=== PATIENT | female | born 1960 | race Asian ===

== ENCOUNTER 2020-06-20 08:21 | Outpatient (REF) | payer OTHER, SELFPAY ==
--- NOTE | 2020-06-20 08:26 | MM_ITS ---
EXAMINATION: MM SCREENING DIGITAL MAMMOGRAPHY, BILATERAL CLINICAL INFORMATION: Remote right mastectomy for breast cancer 1998. Due for yearly exam. COMPARISON: Mammography: 03/24/2019, 05/22/2017, 05/20/2016 TECHNIQUE: Digital mammography is performed in craniocaudal and mediolateral oblique views along with computer-aided detection (CAD). FINDINGS: There are scattered areas of fibroglandular density (ACR BI-RADS breast composition Category b). There are no significant masses, abnormal calcifications, or other abnormalities. Parenchymal pattern is similar to prior studies. There are no significant changes. MM/MM screening mammo unilat LT IMPRESSION: No mammographic evidence of malignancy. ASSESSMENT: BI-RADS 1: Negative RECOMMENDATION: Routine annual mammography screening. This patient's information was entered into a reminder system with a target due date for their next mammogram.
== END 2020-06-20 08:22 | disposition home or self-care (01) ==
LOC: HO.MAMMO 08:21
PROVIDERS: PCP Internal Medicine; Visit Provider Internal Medicine
DX: Z12.31 Encounter for screening mammogram for malignant neoplasm of breast (principal)
CPT/HCPCS: 77065; 77067

== ENCOUNTER → 2020-07-26 12:42 | Outpatient (BNV) | payer OTHER, SELFPAY | PROVIDERS: PCP Internal Medicine; Visit Provider Internal Medicine Medical Oncology | DX: M81.0 Age-related osteoporosis without current pathological fracture (principal); Z85.3 Personal history of malignant neoplasm of breast | CPT/HCPCS: 99213; 99214 ==

== ENCOUNTER 2020-10-11 12:20 | Outpatient (REF) | payer OTHER, SELFPAY ==
[2020-10-11 13:55] LABS: MANUAL DIFF FLAG NO
[2020-10-11 13:59] LABS: Basophils Absolute Auto 0.1 X10*3/uL (0.0-0.2); Basophils Percent Auto 0.9 % (0-2); Eosinophils Absolute Auto 0.1 X10*3/uL (0.0-0.4); Eosinophils Percent Auto 1.4 % (0-4); Hematocrit 41.5 % (37-47); Hemoglobin 13.2 g/dl (12.0-16.0); Imm Gran Abs Auto 0.02 X10*3/uL (0.00-0.03); Imm Gran Pct Auto 0.3 % (0.0-0.4); Lymphocytes Absolute Auto 2.9 X10*3/uL (1.2-4.9); Lymphocytes Percent Auto 43.8 % (20-40); Mean Corpuscular HGB Conc 31.8 g/dl (31.0-35.0); Mean Corpuscular Hemoglobin 28.8 pg (27.0-33.0); Mean Corpuscular Volume 90.4 fL (80-98); Mean Platelet Volume 10.7 fL (9.4-12.3); Monocytes Absolute Auto 0.3 X10*3/uL (0.1-1.2); Monocytes Percent Auto 5.1 % (2-11); Neutrophils Absolute Auto 3.2 X10*3/uL (2.0-8.3); Neutrophils Percent Auto 48.5 % (45-73); Platelet Count 219 X10*3/uL (160-400); Red Blood Count 4.59 X10*6/uL (4.20-5.50); Red Cell Distribution Width 12.8 % (11.0-16.0); White Blood Count 6.7 X10*3/uL (4.8-10.8)
[2020-10-11 14:10] LABS: Estimated Average Glucose 169 mg/dL; Hemoglobin A1c % 7.5 %
[2020-10-11 14:20] LABS: Alanine Aminotransferase 14 U/L (0-31); Albumin Level 4.6 g/dL (3.5-5.0); Alkaline Phosphatase 65 U/L (39-117); Anion Gap 14 (12-20); Aspartate Amino Transferase 16 U/L (5-31); Bilirubin Direct 0.3 mg/dL (0.0-0.5); Bilirubin Total 0.7 mg/dL (0.0-1.0); Blood Urea Nitrogen 11 mg/dL (9-16); Calcium 9.6 mg/dL (8.4-10.2); Carbon Dioxide 27 mmol/L (22-29); Chloride 104 mmol/L (96-108); Cholesterol 241 mg/dL; Estimated Glomerular Filt Rate > 60; Glucose Fasting 128 mg/dL (60-99); HDL Cholesterol 38 mg/dL; LDL Cholesterol Calculated 136 mg/dl; Potassium 4.1 mmol/L (3.3-5.1); Sodium 141 mmol/L (135-145); Total Protein 7.5 g/dL (6.5-8.0); Triglycerides 335 mg/dL
[2020-10-11 14:36] LABS: Creatinine Urine 227.27 mg/dL; Microalbum/Creatinine Ratio Ur 6.6 ug/mg cr
[2020-10-11 14:41] LABS: TSH reflex Free T4 3.54 uIU/mL (0.32-4.0)
== END 2020-10-11 12:21 | disposition home or self-care (01) ==
LOC: HO.HMGCLDS 12:20
PROVIDERS: PCP Internal Medicine; Visit Provider Internal Medicine
DX: E03.9 Hypothyroidism, unspecified (principal); E13.9 Other specified diabetes mellitus without complications; M81.0 Age-related osteoporosis without current pathological fracture; E78.5 Hyperlipidemia, unspecified; Z76.89 Persons encountering health services in other specified circumstances
CPT/HCPCS: 36415; 80048; 80061; 80076; 82043; 83036; 84443; 85025

== ENCOUNTER 2021-01-02 12:13 | Emergency (ER) | payer OTHER, SELFPAY ==
--- NOTE | ~2021-01-02 | XR_ITS ---
EXAMINATION: XR RIBS, RIGHT CLINICAL INFORMATION: Rib injury. Pain. COMPARISON: Chest radiographs 09/01/2017, 06/18/2014 TECHNIQUE: Frontal view chest and 3 views right ribs are obtained for a total of 4 views. FINDINGS: There is minimally displaced fracture involving distal end right 8th rib. There is no destructive process. The remainder of the right ribs appear intact. There is no pneumothorax, pleural reaction, airspace consolidation, or effusion. The heart is normal in size. The hilar and mediastinal contours and remainder of the bony structures are unremarkable. XR/XR ribs RT min 3V w CXR1V IMPRESSION: Fracture distal right 8th rib. Lungs clear. No pneumothorax, infiltrate, or effusion.
[2021-01-02 13:07] VITALS: BP 127/76; PULSE 18; RESP 77; TEMP 36.2; O2SAT 97; BMI 30.4
--- NOTE | 2021-01-02 13:30 | ED.GENADULT ---
HPI - General Adult General Chief complaint: General Medical <RISHI Arellano Last Filed: 01/11/21 12:01> Stated complaint: rib pain <RISHI Arellano Last Filed: 01/11/21 12:01> Time Seen by Provider: 01/02/21 13:30 <RISHI Arellano Last Filed: 01/11/21 12:01> History of Present Illness HPI narrative: Patient complains of right side rib pain after lifting heavy barrel 2 days ago, pain is worse with deep breath movement and when touched, no shortness of breath no other chest pain <RISHI Arellano Last Filed: 01/11/21 12:01> Related Data Home medications: Previous Rx's Medication Instructions Recorded atorvastatin 10 mg tablet 10 mg PO DAILY 30 Days #30 tab 11/02/20 cholecalciferol (vitamin D3) 50 2,000 unit PO DAILY 90 Days #90 cap 11/02/20 mcg (2,000 unit) capsule levothyroxine 50 mcg tablet 50 mcg PO DAILY #90 tab 11/02/20 metformin 1,000 mg tablet 1,000 mg PO BID 90 Days #180 tab 12/12/20 <RISHI Arellano Last Filed: 01/11/21 12:01> Allergies/adverse reactions: Allergies Allergy/AdvReac Type Severity Reaction Status Date / Time No Known Allergies Allergy Verified 01/02/21 13:12 [No Known Allergies*] <RISHI Arellano Last Filed: 01/11/21 12:01> Review of Systems Review of Systems: Positive for right-sided rib pain worse with movement Negatives are no fever chills no dizziness no weakness no fainting no feeling faint no headache no neck pain no shortness of breath no palpitations no abdominal pain no nausea no vomiting no rash <RISHI Arellano Last Filed: 01/11/21 12:01> Yes all other systems are reviewed and are negative <RISHI Arellano Last Filed: 01/11/21 12:01> [facility] Past Medical History Source: nursing notes reviewed <RISHI Arellano Last Filed: 01/11/21 12:01> Medical History: Medical History Dyslipidemia Hypothyroidism <RISHI Arellano Last Filed: 01/11/21 12:01> Surgical History: Surgical History History of colonoscopy History of modified radical mastectomy of right breast History of reconstruction of right breast History of surgery <RISHI Arellano - Last Filed: 01/11/21 12:01> Family History Family History: Family History Father Cancer Leukemia Mother Diabetes mellitus Ovarian cancer Maternal Grandmother Cancer Ovarian cancer Maternal Grandfather No problems noted. Paternal Grandmother No problems noted. Paternal Grandfather No problems noted. Paternal Aunt Breast cancer Sister No problems noted. Son No problems noted. <RISHI Arellano - Last Filed: 01/11/21 12:01> Social History Social History: Social History Alcohol intake: never Advance Directives: Yes Advance Directives Information Provided: Yes Advance Directives on File: No <RISHI Arellano - Last Filed: 01/11/21 12:01> Physical Exam Vital Signs: Vital Signs: Last Vital Signs Temp 97.1 F 01/02/21 13:07 Pulse 18 L 01/02/21 13:07 Resp 77 H 01/02/21 13:07 BP 127/76 01/02/21 13:07 Pulse Ox 97 01/02/21 13:07 Body Mass Index 30.4 General appearance no acute distress Head is normocephalic atraumatic Neck is supple nontender Chest is clear to auscultation bilaterally with full symmetric equal breath sounds There is some pain in the right rib area with deep breathing and there is tenderness to the area the skin is normal and there The abdomen is soft and nontender Extremities no edema no calf tenderness no swelling Skin no rash <RISHI Arellano - Last Filed: 01/11/21 12:01> Vital Signs: Last Vital Signs Temp 97.1 F 01/02/21 13:07 Pulse 18 L 01/02/21 13:07 Resp 77 H 01/02/21 13:07 BP 127/76 01/02/21 13:07 Pulse Ox 97 01/02/21 13:07 Body Mass Index 30.4 <Juwan Huggins MD - Last Filed: 02/12/21 18:20> Course Course Course Narrative: X-ray showed a right rib fracture in the area of tenderness, patient is in no distress breathing easily ambulates easily and is discharged <RISHI Arellano - Last Filed: 01/11/21 12:01> I have reviewed the chart <Juwan Huggins MD - Last Filed: 02/12/21 18:20> Discharge Plan Discharge Clinical Impression: Closed rib fracture <RISHI Arellano - Last Filed: 01/11/21 12:01> Patient Disposition: Home, Self-Care <RISHI Arellano - Last Filed: 01/11/21 12:01> Additional Instructions: X-ray showed you broke a rib in the area that is painful Follow with her doctor within 1 week for re-evaluation Return any time for difficulty breathing, coughing, any worse condition or any concerns In addition to her Naprosyn you can take extra-strength Tylenol 2 pills 3 times a day for pain relief as needed <RISHI Arellano - Last Filed: 01/11/21 12:01> Prescriptions: No Action levothyroxine 50 mcg tablet 50 mcg PO DAILY Qty: 90 RF: 0 atorvastatin 10 mg tablet 10 mg PO DAILY 30 Days Qty: 30 RF: 0 cholecalciferol (vitamin D3) [Vitamin D3] 50 mcg (2,000 unit) capsule 2,000 unit PO DAILY 90 Days Qty: 90 RF: 0 metformin 1,000 mg tablet 1,000 mg PO BID 90 Days Qty: 180 RF: 0 <RISHI Arellano - Last Filed: 01/11/21 12:01> Interventions: ED Discharge Assessment Last Done: 01/02/21 14:20 <RISHI Arellano - Last Filed: 01/11/21 12:01> Discharge Date/Time: 01/02/21 14:23 <RISHI Arellano - Last Filed: 01/11/21 12:01>
== END 2021-01-02 14:23 | disposition home or self-care (01) ==
PROVIDERS: Emergency Provider Emergency Medicine; PCP Internal Medicine
DX: S22.31XA Fracture of one rib, right side, initial encounter for closed fracture (principal); R07.81 Pleurodynia; X50.0XXA Overexertion from strenuous movement or load, initial encounter; Y93.9 Activity, unspecified; Y92.9 Unspecified place or not applicable; Y99.9 Unspecified external cause status; Z79.899 Other long term (current) drug therapy
CPT/HCPCS: 71101; 99283

== ENCOUNTER 2021-03-20 08:45 | Outpatient (REF) | payer OTHER, SELFPAY ==
[2021-03-20 12:29] LABS: Alanine Aminotransferase 22 U/L (0-31); Albumin Level 4.6 g/dL (3.5-5.0); Alkaline Phosphatase 84 U/L (39-117); Anion Gap 13 (12-20); Aspartate Amino Transferase 24 U/L (5-31); Bilirubin Total 0.8 mg/dL (0.0-1.0); Blood Urea Nitrogen 9 mg/dL (9-16); Calcium 9.9 mg/dL (8.4-10.2); Carbon Dioxide 27 mmol/L (22-29); Chloride 107 mmol/L (96-108); Estimated Glomerular Filt Rate > 60; Glucose Random 122 mg/dL (60-115); Potassium 4.5 mmol/L (3.3-5.1); Sodium 142 mmol/L (135-145); Total Protein 7.5 g/dL (6.5-8.0)
[2021-03-20 12:30] LABS: Estimated Average Glucose 123 mg/dL; Hemoglobin A1c % 5.9 %
[2021-03-20 12:52] LABS: TSH reflex Free T4 4.08 uIU/mL (0.32-4.0)
[2021-03-20 14:30] LABS: Free T4 (Free Thyroxine) 0.98 ng/dL (0.71-1.85)
== END 2021-03-20 08:46 | disposition home or self-care (01) ==
LOC: HO.HMGCLDS 08:45
PROVIDERS: PCP Internal Medicine; Visit Provider Internal Medicine
DX: E66.9 Obesity, unspecified (principal); E13.9 Other specified diabetes mellitus without complications; E03.9 Hypothyroidism, unspecified; E78.5 Hyperlipidemia, unspecified
CPT/HCPCS: 36415; 80053; 83036; 84439; 84443

== ENCOUNTER 2021-07-31 12:37 | Outpatient (REF) | payer OTHER, SELFPAY ==
--- NOTE | ~2021-07-31 | MM_ITS ---
EXAMINATION: MM SCREENING DIGITAL BREAST TOMOSYNTHESIS, LEFT CLINICAL INFORMATION: Screening. Asymptomatic. Status post right mastectomy. COMPARISON: Mammography: June 20, 2020 and studies dating back to May 08, 2014 TECHNIQUE: Digital breast tomosynthesis is performed in both the craniocaudal and mediolateral oblique views along with computer-aided detection (CAD). Synthesized 2D images are generated from the tomosynthesis. FINDINGS: The breasts are heterogeneously dense, which may obscure small masses (ACR BI-RADS breast composition Category c). There are no significant masses, abnormal calcifications, or other abnormalities. MM/MM tomosynthesis screening LT IMPRESSION: There are no significant changes from prior study. ASSESSMENT: BI-RADS 1: Negative RECOMMENDATION: Routine annual mammography screening. This patient's information was entered into a reminder system with a target due date for their next mammogram.
--- NOTE | ~2021-07-31 | MM_ITS ---
EXAMINATION: BONE DENSITOMETRY CLINICAL INDICATION: Age-related osteoporosis without current pathological fracture. COMPARISON: Previous BD dated 03/24/2019 and baseline BD dated 11/01/2013. TECHNIQUE: Using a [employer] DXA System (software version: 13.1) manufactured by [employer], dual-energy x-ray absorptiometry was performed of the lumbar spine and left hip. The images are of good technical quality. Summary results are attached. FINDINGS: AP SPINE L1-L4: Current: BMD 1.016 g/cm2, Z-score -0.6, T-score -1.4, osteopenia, 5.2% increase from previous, 11.4% increase from baseline (<5% change is not significant). Prior: BMD 0.966 g/cm2. Baseline: BMD 0.912 g/cm2. LEFT FEMUR, NECK: Current: BMD 0.859 g/cm2, Z-score -0.3, T-score -1.3, osteopenia. Prior: BMD 0.796 g/cm2. Baseline: BMD 0.790 g/cm2. LEFT FEMUR, TOTAL: Current: BMD 0.938 g/cm2, Z-score 0.1, T-score -0.6, normal, 4.9% increase from previous, 10.6% increase from baseline (<5% change is not significant). Prior: BMD 0.894 g/cm2. Baseline: BMD 0.848 g/cm2. IDENTIFIED RISK FACTORS: Early menopause, secondary osteoporosis, low calcium intake, hysterectomy, bilateral oophorectomy. HISTORY OF FRACTURE: None listed. MEDICATIONS: Calcium supplements or multivitamin, vitamin D. MM/XR DEXA axial skeleton IMPRESSION: 1. DIAGNOSIS: Osteopenia based on the lowest T-score value of -1.4 in the lumbar spine applying World Health Organization criteria. 2. 10-YEAR FRACTURE RISK PREDICTION, FRAX: Major osteoporotic fracture (clinical spine, forearm, hip or shoulder) 3.8%. Hip fracture 0.3%. 3. Treatment Recommendations: NOF guidelines recommend consideration for treatment in postmenopausal women and men age 50 and older presenting with the following: -A hip or vertebral (clinical or morphometric) fracture. -T-score less than or equal to -2.5 at the femoral neck or spine after appropriate evaluation to exclude secondary causes. -Low bone mass at the hip or spine and a 10-year fracture probability by FRAX of greater than or equal to 3% for hip fracture or greater than or equal to 20% for major osteoporotic fracture based on the [place] adapted WHO algorithm. 4. Other Recommendations: All treatment decisions require clinical judgment and consideration of individual patient factors, including patient preferences, comorbidities, previous drug use, risk factors not captured in the FRAX model (e.g. frailty, falls, vitamin D deficiency, increased bone turnover, interval significant decline in bone density) and possible under or overestimation of fracture risk by FRAX. Additional medical evaluation for secondary cause of low bone mineral density may be appropriate. FUTURE SCAN RECOMMENDATION: People with diagnosed cases of osteoporosis or at high risk for fracture should have regular bone mineral density tests. For patients eligible for Medicare, routine testing is allowed once every 2 years. The testing frequency can be increased to one year for patients who have rapidly progressing disease, those who are receiving or discontinuing medical therapy to restore bone mass, or have additional risk factors.
== END 2021-07-31 12:38 | disposition home or self-care (01) ==
LOC: HO.MAMMO 12:37
PROVIDERS: PCP Internal Medicine; Visit Provider Internal Medicine
DX: Z12.31 Encounter for screening mammogram for malignant neoplasm of breast (principal); Z13.820 Encounter for screening for osteoporosis; M81.0 Age-related osteoporosis without current pathological fracture; M85.80 Other specified disorders of bone density and structure, unspecified site; Z78.0 Asymptomatic menopausal state; Z79.899 Other long term (current) drug therapy
CPT/HCPCS: 77063; 77067; 77080

== ENCOUNTER → 2021-09-17 13:09 | Outpatient (BNVA) | payer OTHER, SELFPAY | PROVIDERS: PCP Internal Medicine; Visit Provider Advanced Practice Midwife ==

== ENCOUNTER 2021-10-15 10:11 | Outpatient (REF) | payer OTHER, SELFPAY ==
[2021-10-15 12:17] LABS: Alanine Aminotransferase 17 U/L (0-31); Albumin Level 4.5 g/dL (3.5-5.0); Alkaline Phosphatase 55 U/L (39-117); Anion Gap 12 (12-20); Aspartate Amino Transferase 18 U/L (5-31); Bilirubin Total 0.8 mg/dL (0.0-1.0); Blood Urea Nitrogen 8 mg/dL (9-16); Calcium 9.7 mg/dL (8.4-10.2); Carbon Dioxide 26 mmol/L (22-29); Chloride 107 mmol/L (96-108); Estimated Glomerular Filt Rate > 60; Glucose Random 112 mg/dL (60-115); Potassium 4.1 mmol/L (3.3-5.1); Sodium 141 mmol/L (135-145); Total Protein 7.5 g/dL (6.5-8.0)
[2021-10-15 12:27] LABS: Estimated Average Glucose 123 mg/dL; Hemoglobin A1c % 5.9 %
[2021-10-15 12:38] LABS: TSH reflex Free T4 5.44 uIU/mL (0.32-4.0)
[2021-10-15 13:17] LABS: Free T4 (Free Thyroxine) 0.97 ng/dL (0.71-1.85)
== END 2021-10-15 10:12 | disposition home or self-care (01) ==
LOC: HO.HMGCLDS 10:11
PROVIDERS: Visit Provider Internal Medicine
DX: E03.9 Hypothyroidism, unspecified (principal); E13.9 Other specified diabetes mellitus without complications; E66.9 Obesity, unspecified; E78.5 Hyperlipidemia, unspecified
CPT/HCPCS: 36415; 80053; 83036; 84439; 84443

== ENCOUNTER 2022-02-21 09:44 | Outpatient (REF) | payer OTHER, SELFPAY ==
[2022-02-21 11:50] LABS: Estimated Average Glucose 128 mg/dL; Hemoglobin A1c % 6.1 %
[2022-02-21 12:03] LABS: Alanine Aminotransferase 19 U/L (0-31); Albumin Level 4.6 g/dL (3.5-5.0); Alkaline Phosphatase 64 U/L (39-117); Anion Gap 14 (12-20); Aspartate Amino Transferase 18 U/L (5-31); Bilirubin Total 0.7 mg/dL (0.0-1.0); Blood Urea Nitrogen 11 mg/dL (9-16); Calcium 9.6 mg/dL (8.4-10.2); Carbon Dioxide 27 mmol/L (22-29); Chloride 107 mmol/L (96-108); Cholesterol 166 mg/dL; Estimated Glomerular Filt Rate > 60; Glucose Fasting 119 mg/dL (60-99); HDL Cholesterol 38 mg/dL; LDL Cholesterol Calculated 93 mg/dl; Potassium 4.5 mmol/L (3.3-5.1); Sodium 143 mmol/L (135-145); Total Protein 7.5 g/dL (6.5-8.0); Triglycerides 178 mg/dL
[2022-02-21 12:25] LABS: TSH reflex Free T4 2.59 uIU/mL (0.32-4.0)
== END 2022-02-21 09:45 | disposition home or self-care (01) ==
LOC: HO.HMGCLDS 09:44
PROVIDERS: Visit Provider Internal Medicine
DX: E03.8 Other specified hypothyroidism (principal); E13.9 Other specified diabetes mellitus without complications; E66.9 Obesity, unspecified; E78.9 Disorder of lipoprotein metabolism, unspecified
CPT/HCPCS: 36415; 80053; 80061; 83036; 84443

== ENCOUNTER 2022-06-23 09:47 | Outpatient (REF) | payer OTHER, SELFPAY ==
[2022-06-23 11:48] LABS: Estimated Average Glucose 140 mg/dL; Hemoglobin A1c % 6.5 %
[2022-06-23 11:58] LABS: Alanine Aminotransferase 46 U/L (0-31); Albumin Level 4.5 g/dL (3.5-5.0); Alkaline Phosphatase 95 U/L (39-117); Anion Gap 15 (12-20); Aspartate Amino Transferase 41 U/L (5-31); Bilirubin Total 0.5 mg/dL (0.0-1.0); Blood Urea Nitrogen 11 mg/dL (9-16); Carbon Dioxide 24 mmol/L (22-29); Chloride 106 mmol/L (96-108); Estimated Glomerular Filt Rate > 60; Glucose Random 127 mg/dL (60-115); Potassium 4.1 mmol/L (3.3-5.1); Sodium 141 mmol/L (135-145); Total Protein 7.3 g/dL (6.5-8.0)
[2022-06-23 12:44] LABS: Creatinine Urine 113.31 mg/dL; Microalbum/Creatinine Ratio Ur 11.4 ug/mg cr
== END 2022-06-23 09:48 | disposition home or self-care (01) ==
LOC: HO.HMGCLDS 09:47
PROVIDERS: PCP Internal Medicine; Visit Provider Internal Medicine
DX: E03.8 Other specified hypothyroidism (principal); E13.9 Other specified diabetes mellitus without complications; E66.9 Obesity, unspecified; E78.9 Disorder of lipoprotein metabolism, unspecified
CPT/HCPCS: 36415; 80053; 82043; 83036

== ENCOUNTER 2022-07-14 09:32 | Outpatient (REF) | payer OTHER, SELFPAY ==
[2022-07-14 12:10] LABS: Alanine Aminotransferase 17 U/L (0-31); Albumin Level 4.6 g/dL (3.5-5.0); Alkaline Phosphatase 71 U/L (39-117); Aspartate Amino Transferase 18 U/L (5-31); Bilirubin Direct 0.2 mg/dL (0.0-0.5); Bilirubin Total 0.8 mg/dL (0.0-1.0); Total Protein 7.4 g/dL (6.5-8.0)
== END 2022-07-14 09:33 | disposition home or self-care (01) ==
LOC: HO.HMGCLDS 09:32
PROVIDERS: PCP Internal Medicine; Visit Provider Internal Medicine
DX: R79.89 Other specified abnormal findings of blood chemistry (principal)
CPT/HCPCS: 36415; 80076

== ENCOUNTER 2022-08-08 07:30 | Outpatient (REF) | payer OTHER, SELFPAY ==
--- NOTE | ~2022-08-08 | MM_ITS ---
EXAMINATION: MM SCREENING DIGITAL BREAST TOMOSYNTHESIS, LEFT CLINICAL INFORMATION: Screening. Asymptomatic. Remote right mastectomy, 1998. COMPARISON: Mammography: 07/31/2021, 06/20/2020, 03/24/2019 TECHNIQUE: Digital breast tomosynthesis is performed in both the craniocaudal and mediolateral oblique views along with computer-aided detection (CAD). Synthesized 2D images are generated from the tomosynthesis. FINDINGS: There are scattered areas of fibroglandular density (ACR BI-RADS breast composition Category b). There are no significant masses, abnormal calcifications, or other abnormalities. Parenchymal pattern is similar to prior studies. There is no developing density or architectural abnormality. The axilla and skin contours are unremarkable. No significant changes. MM/MM tomosynthesis screening LT IMPRESSION: No mammographic evidence of malignancy. ASSESSMENT: BI-RADS 1: Negative RECOMMENDATION: Routine annual mammography screening. This patient's information was entered into a reminder system with a target due date for their next mammogram.
== END 2022-08-08 07:31 | disposition home or self-care (01) ==
LOC: HO.MAMMO 07:30
PROVIDERS: PCP Internal Medicine; Visit Provider Internal Medicine
DX: Z12.31 Encounter for screening mammogram for malignant neoplasm of breast (principal)
CPT/HCPCS: 77063; 77067

== ENCOUNTER 2022-11-17 10:58 | Outpatient (REF) | payer OTHER, SELFPAY ==
[2022-11-17 13:49] LABS: MANUAL DIFF FLAG NO
[2022-11-17 13:58] LABS: Basophils Absolute Auto 0.1 X10*3/uL (0.0-0.2); Basophils Percent Auto 0.8 % (0-2); Eosinophils Absolute Auto 0.1 X10*3/uL (0.0-0.4); Eosinophils Percent Auto 1.4 % (0-4); Hematocrit 41.3 % (37.0-47.0); Hemoglobin 13.3 g/dl (12.0-16.0); Imm Gran Abs Auto 0.01 X10*3/uL (0.00-0.03); Imm Gran Pct Auto 0.2 % (0.0-0.4); Lymphocytes Absolute Auto 2.7 X10*3/uL (1.2-4.9); Lymphocytes Percent Auto 40.7 % (20-40); Mean Corpuscular HGB Conc 32.2 g/dl (31.0-35.0); Mean Corpuscular Hemoglobin 28.5 pg (27.0-33.0); Mean Corpuscular Volume 88.6 fL (80.0-98.0); Mean Platelet Volume 10.1 fL (9.4-12.3); Monocytes Absolute Auto 0.3 X10*3/uL (0.1-1.2); Neutrophils Absolute Auto 3.4 x10*3/uL (2.0-8.3); Neutrophils Percent Auto 51.9 % (45-73); Platelet Count 314 X10*3/uL (160-400); Red Blood Count 4.66 X10*6/uL (4.20-5.50); White Blood Count 6.6 X10*3/uL (4.8-10.8)
[2022-11-17 14:16] LABS: Alanine Aminotransferase 21 U/L (0-31); Albumin Level 4.6 g/dL (3.5-5.0); Alkaline Phosphatase 63 U/L (39-117); Anion Gap 16 (12-20); Aspartate Amino Transferase 20 U/L (5-31); Blood Urea Nitrogen 13 mg/dL (9-16); Calcium 10.1 mg/dL (8.4-10.2); Carbon Dioxide 25 mmol/L (22-29); Chloride 105 mmol/L (96-108); Cholesterol 180 mg/dL; Estimated Glomerular Filt Rate > 60; Glucose Fasting 125 mg/dL (60-99); HDL Cholesterol 39 mg/dL; LDL Cholesterol Calculated 102 mg/dl; Potassium 4.2 mmol/L (3.3-5.1); Sodium 142 mmol/L (135-145); Total Protein 7.3 g/dL (6.5-8.0); Triglycerides 197 mg/dL
[2022-11-17 14:18] LABS: Estimated Average Glucose 148 mg/dL; Hemoglobin A1c % 6.8 %
[2022-11-17 14:32] LABS: TSH reflex Free T4 3.06 uIU/mL (0.32-4.0)
== END 2022-11-17 10:59 | disposition home or self-care (01) ==
LOC: HO.HMGCLDS 10:58
PROVIDERS: PCP Internal Medicine; Visit Provider Internal Medicine
DX: E03.8 Other specified hypothyroidism (principal); E13.9 Other specified diabetes mellitus without complications; E78.9 Disorder of lipoprotein metabolism, unspecified
CPT/HCPCS: 36415; 80053; 80061; 83036; 84443; 85025

== ENCOUNTER 2022-11-27 08:35 | Outpatient (REF) | payer OTHER, SELFPAY ==
[2022-12-04 04:44] LABS: HPV mRNA E6/E7 rflx Not Detected (Not Detected)
== END 2022-11-27 08:36 | disposition home or self-care (01) ==
LOC: HO.LNP 08:35
PROVIDERS: PCP Internal Medicine; Visit Provider Advanced Practice Midwife
DX: Z01.419 Encounter for gynecological examination (general) (routine) without abnormal findings (principal); Z11.51 Encounter for screening for human papillomavirus (HPV)
CPT/HCPCS: 87624; 88142

== ENCOUNTER 2023-02-18 09:32 | Outpatient (AMB) | payer OTHER, SELFPAY ==
--- NOTE | 2023-02-18 09:35 | A.OFFPC_ITS ---
Vital Signs 02/18/23 09:38 Height 5 ft 1 in Weight 169 lb 2 oz BMI 32.0 BP 126/80 Blood Pressure Location Lt brachial Position Sitting Pulse 84 Pulse Source Pulse Oximeter Pulse Oximetry (%) 96 Oxygen Delivery Method Room Air Intake Visit Reasons: PE Allergies No Known Allergies [No Known Allergies*] Allergy (Verified 02/18/23 09:38) Medication List - Last Reconciled 02/18/23 by Whitney Gavin MD atorvastatin 10 mg PO DAILY 90 days cholecalciferol (vitamin D3) (Vitamin D3) 2,000 units PO DAILY 90 days levothyroxine 75 mcg PO DAILY 90 days metformin 1,000 mg PO DAILY 90 days Tobacco use date assessed: 02/18/23 Dental Screening Dental Screen Date: 02/18/23 Did you have a dental visit in the last 12 months?: No Did you have a dental problem in the last 6 months where you did not have access to dental care?: No Was dental information given to patient?: No HPI PE HPI Details Patient is a 62-year-old female came in today for her annual physical exam Patient is complaining of paresthesia right hand for the past 1 month, she said that she wakes up in the morning with numbness but as the day goes by it feels little bit better There is no weakness in the hand I have ordered EMG nerve conduction study, meanwhile I have also provided a wrist splint for the patient that she is to start wearing at night Diabetes mellitus: she is on metformin 1 g daily.? Tolerating medication no side effects hemoglobin A1c has been stable she is due for another set of lab before next visit Hypothyroidism:? Patient is currently taking levothyroxine 75 mcg, TSH within normal limit Lipid Disorder: Continue atorvastatin 10 mg daily and diet-controlled.? Repeat labs for LFT monitoring before next visit BMI is elevated need to lose weight.? Mammogram due in July Pap smear through [facility] Colonoscopy was at age 58 Follow-up 3 months PFS Medical History Dyslipidemia Hypothyroidism Surgical History History of colonoscopy History of modified radical mastectomy of right breast History of reconstruction of right breast History of surgery Family History Father Cancer Leukemia Mother Diabetes mellitus Ovarian cancer Maternal Grandmother Cancer Ovarian cancer Maternal Grandfather No problems noted. Paternal Grandmother No problems noted. Paternal Grandfather No problems noted. Paternal Aunt Breast cancer Sister No problems noted. Son No problems noted. Social History Household Members: Children Household Members Other:: Divorce. Lives w/son in 2 family. Housing: House Are you a primary medicare compliance auditor to a significant other at home: No Do you presently have visiting nurse or other home services: No Alcohol intake: never Patient Tobacco Use Status: Never used Tobacco e-Cigarette/Vaping Use: Never Used Second Hand Smoke Exposure: No service: No Current occupational status: employed Sexual orientation: Straight/Heterosexual Gender identity: Female Cognitive needs: No Hearing needs: No Vision needs: Yes Questionnaire Thrive Questionnaire Date Thrive assessed: 10/22/22 AUDIT C Alcohol Use Questionnaire (AUDIT-C) 1. How often do you have a drink containing alcohol?: Never 3. How often do you have six or more drinks on one occasion?: Never Total Score: 0 Score Reviewed/Action Taken: Yes JUSTUS-7 AMB Questionnaire JUSTUS-7 Date JUSTUS - 7 assessed: 10/22/22 Source: Developed by Drs. Sandeep Cruz, Ninfa Edwards, Ruddy Roberts and colleagues, with an educational charissa from [email or web address]. Review of Systems Const Denies chills, Denies fever(s) and Denies headache(s) Eyes Denies blurry vision ENT Denies headache(s), Denies nasal discharge, Denies nasal obstruction, Denies odynophagia and Denies sinus pain Card Denies chest pain at rest and Denies chest pain with activity Resp Denies cough and Denies hemoptysis GI Denies diarrhea, Denies odynophagia, Denies vomiting and Denies hematemesis Reports as per HPI Musc Denies abnormal gait Skin/Breast Reports as per HPI Neuro Denies Neuro-related abnormal movements, Denies Abnormal speech present, Denies abnormal gait, Denies headache(s) and Denies Sensory deficit (Neuro) Psych Denies mood swings and Denies paranoia Endo Reports as per HPI Vicente/Lymph Reports as per HPI Aller/Immun Reports as per HPI Physical exam (Primary Care) Vital Signs: Last Vital Signs Pulse 84 02/18/23 09:38 BP 126/80 02/18/23 09:38 Pulse Ox 96 02/18/23 09:38 Oxygen Delivery Method Room Air 02/18/23 09:38 BMI result Body Mass Index 32.0 Tobacco/Smoking Status: Tobacco use Status Tobacco use date assessed 02/18/23 02/18/23 09:40 Patient Tobacco Use Status Never used Tobacco 02/18/23 09:37 e-Cigarette/Vaping Use Never Used 02/18/23 09:37 Thrive Assessment: Date of Thrive Assessment Date Thrive assessed 10/22/22 02/18/23 09:37 Const General: cooperative, comfortable and no acute distress Orientation/consciousness: patient oriented x3 HENMT Head: Yes normocephalic and Yes atraumatic Eyes General: appearance normal, both eyes and all related structures Pupils: Equal, round and reactive pupils present EOM: EOMs intact bilaterally Neck Neck: Yes supple and No lymphadenopathy Thyroid: Thyroid normal Lymphatic: no lymphadenopathy noted Resp Effort & Inspection: normal respiratory effort and able to speak in complete sentences Auscultation: clear to auscultation bilaterally Cardio Heart sounds: S1 normal heart sound present and S2 normal heart sound present GI Palpation (GI): Soft to palpation and nontender Auscultation: normal bowel sounds General: Yes no CVA tenderness Back/Spine/Pelvis Back: no CVA tenderness Skin General skin exam: elasticity normal and turgor normal Neuro General: patient oriented x3 and gait normal Cranial nerves: Yes Equal, round and reactive pupils present Speech: No Abnormal speech present Sensory Exam: No Sensory deficit (Neuro) Coordination: tandem gait normal and Romberg test negative Extrem General: Yes normal exam except as noted and No edema Assessment and Plan Assessment & Plan (1) Encounter for general adult medical examination with abnormal findings: Code(s): Z00.01 - Encounter for general adult medical examination with abnormal findings (2) Diabetes 1.5, managed as type 2: Code(s): E13.9 - Other specified diabetes mellitus without complications (3) Other specified hypothyroidism: Code(s): E03.8 - Other specified hypothyroidism (4) Lipid disorder: Code(s): E78.9 - Disorder of lipoprotein metabolism, unspecified (5) LFT elevation: Code(s): R79.89 - Other specified abnormal findings of blood chemistry (6) Paresthesias in right hand: Code(s): R20.2 - Paresthesia of skin Plan Patient is a 62-year-old female came in today for her annual physical exam Patient is complaining of paresthesia right hand for the past 1 month, she said that she wakes up in the morning with numbness but as the day goes by it feels little bit better There is no weakness in the hand I have ordered EMG nerve conduction study, meanwhile I have also provided a wrist splint for the patient that she is to start wearing at night Diabetes mellitus: she is on metformin 1 g daily.? Tolerating medication no side effects hemoglobin A1c has been stable she is due for another set of lab before next visit Hypothyroidism:? Patient is currently taking levothyroxine 75 mcg, TSH within normal limit Lipid Disorder: Continue atorvastatin 10 mg daily and diet-controlled.? Repeat labs for LFT monitoring before next visit BMI is elevated need to lose weight.? Mammogram due in July Pap smear through [facility] Colonoscopy was at age 58 Follow-up 3 months Orders: Orders Comprehensive Met. Panel Today E03.8 - Other specified hypothyroidism, E13.9 - Other specified diabetes mellitus without complications, E78.9 - Disorder of lipoprotein metabolism, unspecified, R20.2 - Paresthesia of skin, R79.89 - Other specified abnormal findings of blood chemistry, Z00.01 - Encounter for general adult medical examination with abnormal findings Hemoglobin A1c Today E03.8 - Other specified hypothyroidism, E13.9 - Other specified diabetes mellitus without complications, E78.9 - Disorder of lipoprotein metabolism, unspecified, R20.2 - Paresthesia of skin, R79.89 - Other specified abnormal findings of blood chemistry, Z00.01 - Encounter for general adult medical examination with abnormal findings LDL Cholesterol Direct Today E03.8 - Other specified hypothyroidism, E13.9 - Other specified diabetes mellitus without complications, E78.9 - Disorder of lipoprotein metabolism, unspecified, R20.2 - Paresthesia of skin, R79.89 - Other specified abnormal findings of blood chemistry, Z00.01 - Encounter for general adult medical examination with abnormal findings Microalbumin, Random (w Creat) Today E03.8 - Other specified hypothyroidism, E13.9 - Other specified diabetes mellitus without complications, E78.9 - Disorder of lipoprotein metabolism, unspecified, R20.2 - Paresthesia of skin, R79.89 - Other specified abnormal findings of blood chemistry, Z00.01 - Encounter for general adult medical examination with abnormal findings Complete Blood Count Auto Diff Today E03.8 - Other specified hypothyroidism, E13.9 - Other specified diabetes mellitus without complications, E78.9 - Disorder of lipoprotein metabolism, unspecified, R20.2 - Paresthesia of skin, R79.89 - Other specified abnormal findings of blood chemistry, Z00.01 - Encounter for general adult medical examination with abnormal findings Vitamin B12 Today E03.8 - Other specified hypothyroidism, R20.2 - Paresthesia of skin TSH reflex Free T4 Today E03.8 - Other specified hypothyroidism, R20.2 - Paresthesia of skin Vitamin D 25-OH (D2 and D3) Today E03.8 - Other specified hypothyroidism, R20.2 - Paresthesia of skin NE electromyogram (EMG) Today R20.2 - Paresthesia of skin NE nerve conduction velocity Today R20.2 - Paresthesia of skin Coding Level of Care Code Est Pt Prev Care 40-64y(39077) Diagnoses Encounter for general adult medical examination with abnormal findings Z00.01 Diabetes 1.5, managed as type 2 E13.9 Other specified hypothyroidism E03.8 Lipid disorder E78.9 LFT elevation R79.89 Paresthesias in right hand R20.2
[2023-02-18 09:38] VITALS: BP 126/80; PULSE 84; O2SAT 96; BMI 32.0
== END 2023-02-18 10:00 | disposition home or self-care (01) ==
PROVIDERS: Visit Provider Internal Medicine
DX: Z00.01 Encounter for general adult medical examination with abnormal findings (principal); E13.9 Other specified diabetes mellitus without complications; E03.8 Other specified hypothyroidism; E78.9 Disorder of lipoprotein metabolism, unspecified; R79.89 Other specified abnormal findings of blood chemistry; R20.2 Paresthesia of skin
CPT/HCPCS: 99396

== ENCOUNTER 2023-04-02 07:42 | Outpatient (REF) | payer OTHER, SELFPAY ==
--- NOTE | 2023-04-02 07:45 | EMG_ITS ---
Right median and ulnar motor and sensory studies were performed. Right radial sensory study was performed and paraspinal muscles were tested with a needle. IMPRESSION: 1. Moderate right median neuropathy across the carpal tunnel. 2. Moderate right ulnar neuropathy across the cubital tunnel. MD MALLY Westbrook/NATY / [id number]
== END 2023-04-02 07:43 | disposition home or self-care (01) ==
LOC: HO.NEURO 07:42
PROVIDERS: PCP Internal Medicine; Visit Provider Internal Medicine
DX: R20.2 Paresthesia of skin (principal)
CPT/HCPCS: 95886; 95909

== ENCOUNTER 2023-04-29 11:16 | Emergency (ER) | payer OTHER, SELFPAY ==
--- NOTE | ~2023-04-29 | XR_ITS ---
EXAMINATION: XR SHOULDER, LEFT CLINICAL INFORMATION: Shoulder pain times many months COMPARISON: None available. TECHNIQUE: Three views of the left shoulder. FINDINGS: The bones and soft tissues are normal. No fracture. Glenohumeral and acromioclavicular alignment is anatomic with normal joint space. No abnormal soft tissue calcifications. XR/XR shoulder LT min 2V IMPRESSION: Normal left shoulder.
[2023-04-29 11:30] VITALS: BP 134/79; PULSE 74; RESP 19; TEMP 36.6; O2SAT 98; BMI 33.4
--- NOTE | 2023-04-29 11:30 | ED_ITS ---
HPI - General Adult General Chief complaint: Extremity Injury, Upper Stated complaint: l shoulder pain Time Seen by Provider: 04/29/23 12:34 Source: patient Mode of arrival: ambulatory Limitations: no limitations History of Present Illness HPI narrative: 62 y/o Female, right-hand dominant who presents to the ER for evaluation of a traumatic left-sided shoulder pain for the last 2 or 3 months. She cannot recall any specific event for with the shoulder started to hurt. She states that the pain is located in the anterior and lateral shoulder, is worse with abduction past 90 degrees and worse at night. The pain radiates into the muscle of the upper arm. No numbness, tingling or weakness in the arm. No neck pain, back pain or chest pain. She takes Aleve intermittently with some improvement. MD complaint: left shoulder pain Onset (ago): month(s) (3) Location: left and upper extremity Radiation: distal Severity: moderate Severity scale (1-10): 7 Quality: aching Pain Consistency: intermittent Relieving factors: rest Exacerbating factors: movement Associated symptoms: denies other symptoms Treatments prior to arrival: none Related Data Previous Rx's Medication Instructions Recorded atorvastatin 10 mg tablet 10 mg PO DAILY 90 days #90 tabs 06/24/22 cholecalciferol (vitamin D3) 50 2,000 unit PO DAILY 90 days #90 06/24/22 mcg (2,000 unit) capsule (Vitamin caps D3) levothyroxine 75 mcg tablet 75 mcg PO DAILY 90 days #90 tabs 06/24/22 metformin 1,000 mg tablet 1,000 mg PO DAILY 90 days #90 tabs 01/23/23 Allergies Allergy/AdvReac Type Severity Reaction Status Date / Time No Known Allergies Allergy Verified 04/29/23 11:30 [No Known Allergies*] Review of Systems Review of Systems: Yes all other systems are reviewed and are negative [facility] Past Medical History Medical History Dyslipidemia Hypothyroidism Surgical History History of colonoscopy History of modified radical mastectomy of right breast History of reconstruction of right breast History of surgery Family History Family History Father Cancer Leukemia Mother Diabetes mellitus Ovarian cancer Maternal Grandmother Cancer Ovarian cancer Maternal Grandfather No problems noted. Paternal Grandmother No problems noted. Paternal Grandfather No problems noted. Paternal Aunt Breast cancer Sister No problems noted. Son No problems noted. Social History Social History Household Members: Children Household Members Other:: Divorce. Lives w/son in 2 family. Housing: House Are you a primary manager intensive care unit to a significant other at home: No Do you presently have visiting nurse or other home services: No Alcohol intake: never Patient Tobacco Use Status: Never used Tobacco e-Cigarette/Vaping Use: Never Used Second Hand Smoke Exposure: No Advance Directives: No Advance Directives Information Provided: No service: No Current occupational status: employed Sexual orientation: Straight/Heterosexual Gender identity: Female Cognitive needs: No Hearing needs: No Vision needs: Yes Physical Exam ED Vital Signs: Vital Signs - 24 hr 04/29/23 11:30 Temperature 98 F Pulse Rate 74 Respiratory Rate 19 Blood Pressure 134/79 Pulse Oximetry 98 Oxygen Delivery Method Room Air BMI result Body Mass Index 33.4 Appearance: Alert. Oriented X3. No acute distress. HEENT: normal inspection CVS: Normal heart rate and rhythm. Pulses normal. Respiratory: No respiratory distress. Skin: Skin warm and dry. Normal skin color. Normal skin turgor. No rashes. Extremities: left shoulder normal inspection, mild tenderness of the anteriolateral shoulder. pain with lateral abduction past 90 degrees. negative empty can test. normal strength. no scapular tenderness Neuro: Oriented X 3. No motor deficit. No sensory deficit. Course Course Course Narrative: This is a rapid medical exam: Additional HPI, ROS, PE not included below will be deferred to primary provider. Patient is a 62-year-old [id number] female presenting to the emergency department with complaint of left shoulder pain for the past several months, denies any initial fall or other trauma. States pain is worse at night, radiates to upper arm but not past elbow. Plan: x-ray Medical Decision Making Medical Decision Making MDM Narrative: 62 yo female presenting with atraumatic left shoulder pain for several months. x-ray is normal. able to passive abduct the arm past 90 degrees but with pain. negative empty can test. no radiation to chest or back. she has an appointment with orthopedics tomorrow for c/o carpal tunnel symptoms in the right hand. recommend continued follow up with ortho for further evaluation and treatment of her shoulder pain. recommend rest, ice, tylenol, motrin. no indication for sling immobilization, patient counseled. stable for d/c home with outpatient follow up Differential Diagnosis Differential Diagnoses: The differential diagnosis associated with the presentation includes OA, rotator cuff injury, inflammatory arthritis, bursitis, tendonitis, doubt cardiac etiology Independent Interpretation I performed an independent interpretation of an: Plain X-Ray Interpretation: no acute fracture or dislocation, agree w/ radiology read Radiology Impression Discussion of test interpretation with radiology: I have reviewed the radiologist's reading. Radiologist Impression: EXAMINATION: XR SHOULDER, LEFT CLINICAL INFORMATION: Shoulder pain times many months COMPARISON: None available. TECHNIQUE: Three views of the left shoulder. FINDINGS: The bones and soft tissues are normal. No fracture. Glenohumeral and acromioclavicular alignment is anatomic with normal joint space. No abnormal soft tissue calcifications. XR/XR shoulder LT min 2V IMPRESSION: Normal left shoulder. External Record Review External record reviewed: Outpatient record, Prior outpatient labs and Prior outpatient radiology Tests considered The following testing was considered but not selected: considered EKG however cardiac etiology is very low on differential and clinical presentation is not c/w chest pain Prescription Management I considered prescription management with: Pain Medication Critical Care Time Critical Care Time Critical Care Time: No Discharge Plan Discharge Clinical Impression: Shoulder pain, left Qualifiers: Chronicity: chronic Qualified Code(s): M25.512 - Pain in left shoulder Patient Disposition: Home, Self-Care Instructions: Shoulder Pain (ED) Additional Instructions: Your x-ray today was normal. Recommend following up with orthopedics for further evaluation treatment. Recommend taking alternating doses of Motrin and Tylenol for the pain. If you develop new or worsening symptoms call 911 or come back to the ER for further evaluation. Prescriptions: No Action metformin 1,000 mg tablet 1,000 mg PO DAILY 90 Days Qty: 90 1RF levothyroxine 75 mcg tablet 75 mcg PO DAILY 90 Days Qty: 90 1RF atorvastatin 10 mg tablet 10 mg PO DAILY 90 Days Qty: 90 1RF cholecalciferol (vitamin D3) [Vitamin D3] 50 mcg (2,000 unit) capsule 2,000 unit PO DAILY 90 Days Qty: 90 0RF Referrals: [facility] [place] [facility] [Provider Group] (EXAMINATION: XR SHOULDER, LEFT CLINICAL INFORMATION: Shoulder pain times many months COMPARISON: None available. TECHNIQUE: Three views of the left shoulder. FINDINGS: The bones and soft tissues are normal. No fracture. Glenohumeral and acromioclavicular alignment is anatomic with normal joint space. No abnormal soft tissue calcifications. XR/XR shoulder LT min 2V IMPRESSION: Normal left shoulder.)
[2023-04-29 15:00] VITALS: BP 120/75; PULSE 63; RESP 16; TEMP 36.6; O2SAT 99
== END 2023-04-29 15:06 | disposition home or self-care (01) ==
PROVIDERS: Emergency Provider Emergency Medicine; PCP Internal Medicine
DX: M25.512 Pain in left shoulder (principal)
CPT/HCPCS: 73030; 99283

== ENCOUNTER 2023-04-30 10:16 | Outpatient (AMB) | payer OTHER, SELFPAY ==
--- NOTE | 2023-04-30 10:58 | MHC.OFFVIS ---
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 States symptoms started to worsen in the last 3 months. Patient explains she has hx of rt breast cancer (20 yrs ago) and is not sure this is due to her lumpectomy, also mention about 10 yrs ago had a bad laceration across her index, middle and ring finger where no surgery was needs but has to get sutures. States she also has numbness in left hand but not as bad as her right. She also has soreness in left shoulder for a few months possible due to repetitive moment. Allergies No Known Allergies [No Known Allergies*] Allergy (Verified 04/29/23 11:30) Medication List - Last Reconciled 04/30/23 by Alyx Angel MD atorvastatin 10 mg PO DAILY 90 days cholecalciferol (vitamin D3) (Vitamin D3) 2,000 units PO DAILY 90 days levothyroxine 75 mcg PO DAILY 90 days metformin 1,000 mg PO DAILY 90 days HPI HPI Comments History of Present Illness Details Patient already had an EMG. See results below. Numbness gradually developing at least 3 months, mainly right 1sty-4th digits. 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 Left not as bad, just starting. Not dropping things. Numbness bothers her 6/10 level. Report left shoulder is sore , pointing to upper arm, says not the bone . She went to ER yesterday. Xray said was normal. Denies neck pain. DM is controlled. Sometimes with numbness. Treatment done so far: NSAIDs - takes Alleve for left shoulder/arm Tries to wear splints at night. therapy - none yet PFSH Medical History Dyslipidemia Hypothyroidism Surgical History History of colonoscopy History of modified radical mastectomy of right breast History of reconstruction of right breast History of surgery Family History Father Cancer Leukemia Mother Diabetes mellitus Ovarian cancer Maternal Grandmother Cancer Ovarian cancer Maternal Grandfather No problems noted. Paternal Grandmother No problems noted. Paternal Grandfather No problems noted. Paternal Aunt Breast cancer Sister No problems noted. Son No problems noted. Social History (Updated 04/30/23 @ 11:05 by SENAIT Huff) Household Members: Children Household Members Other:: Divorce. Lives w/son in 2 family. 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 MSK: Inspection reveals appropriate head and neck positioning. No pain with palpation over the neck musculature. Cervical ROM was full. Spurling's sign negative. Bilateral shoulder ROM WNL. No ligamentous laxity or crepitance. No increased effusion. Mild tenderness along left deltoid. No signs of muscle tear. No asymmetry compared to the right. Hawkin's test is negative. No joint effusion noted. No deformity noted. No intrinsic hand weakness noted. No atrophy noted. Anurag test negative. Carpal compression test positive on right. Tinel sign positive at left elbow. Strength is 5/5 in all muscle groups tested. No increased tone noted. Neurological: Neurologic examination of the upper and lower extremities was nonfocal with intact sensation, muscle stretch reflexes and without focal motor deficits . Naidu?s negative bilaterally. Gait is non-antalgic without loss of balance. Results Reviewed Results Reviewed: I independently reviewed the results of the following: EMG reviewed-possible right Carpal Tunnel Syndrome, no conduction block across the elbow. Left shoulder xray normal. Ordering Physician: Whitney Gavin MD Date of Service: 04/02/23 Procedure(s): NE electromyogram (EMG); NE nerve conduction velocity Accession Number(s): [id number]; [id number] cc: Whitney Gavin MD~ Right median and ulnar motor and sensory studies were performed. Right radial sensory study was performed and paraspinal muscles were tested with a needle. IMPRESSION: 1. Moderate right median neuropathy across the carpal tunnel. 2. Moderate right ulnar neuropathy across the cubital tunnel. EXAMINATION: XR SHOULDER, LEFT CLINICAL INFORMATION: Shoulder pain times many months COMPARISON: None available. TECHNIQUE: Three views of the left shoulder. FINDINGS: The bones and soft tissues are normal. No fracture. Glenohumeral and acromioclavicular alignment is anatomic with normal joint space. No abnormal soft tissue calcifications. XR/XR shoulder LT min 2V IMPRESSION: Normal left shoulder. HGBA1c been in the 6s I reviewed records from the following: PCP Assessment & Plan Assessment & Plan (1) Carpal tunnel syndrome: Code(s): G56.00 - Carpal tunnel syndrome, unspecified upper limb Qualifiers: Laterality: bilateral Qualified Code(s): G56.03 - Carpal tunnel syndrome, bilateral upper limbs Plan: Recent EMG showed right Carpal Tunnel Syndrome, at least moderate level. We discussed treatment for Carpal Tunnel Syndrome including conservative versus surgical. She is already wearing a wrist splint at night. We decided to have her meet Dr. German for consideration of surgery. We will schedule her for left upper extremity EMG since she has similar symptoms on that side. We will provide left wrist splint as well. (2) Strain of deltoid muscle: Code(s): S46.819A - Strain of other muscles, fascia and tendons at shoulder and upper arm level, unspecified arm, initial encounter Plan: Possible is muscle strain, without signs of tear. No signs of RTC are joint pathology. Continue NSAIDs and icing and relative rest. Plan Assessment and plan discussed with patient, and patient was agreeable. All questions were answered thoroughly. Alyx Angel MD, JILLIAN Board Certified, [place] [employer] and [employer] (ABPMR) Board Certified, [place] [employer] (ABEM) Orders: Orders NE nerve conduction velocity Today G56.00 - Carpal tunnel syndrome, unspecified upper limb NE electromyogram (EMG) Today G56.00 - Carpal tunnel syndrome, unspecified upper limb Referrals Orthopedics Referral G56.00 - Carpal tunnel syndrome, unspecified upper limb Coding Level of Care Code New Pt Level 4 (05219) Diagnoses Bilateral carpal tunnel syndrome G56.03 Laterality: bilateral Strain of deltoid muscle S46.819A
[2023-04-30 11:03] VITALS: BMI 33.4
== END 2023-04-30 11:28 | disposition home or self-care (01) ==
PROVIDERS: PCP Internal Medicine; Visit Provider Physical Medicine & Rehabilitation
DX: G56.03 Carpal tunnel syndrome, bilateral upper limbs (principal); S46.812A Strain of other muscles, fascia and tendons at shoulder and upper arm level, left arm, initial encounter
CPT/HCPCS: 99204

== ENCOUNTER → 2023-04-30 10:16 | Outpatient (BNVA) | payer OTHER, SELFPAY | PROVIDERS: PCP Internal Medicine; Visit Provider Physical Medicine & Rehabilitation ==

== ENCOUNTER 2023-05-07 14:46 | Outpatient (REF) | payer OTHER, SELFPAY ==
--- NOTE | 2023-05-07 14:48 | EMG_ITS ---
History: Recent EMG showed right Carpal Tunnel Syndrome, at least moderate level. She is already wearing a wrist splint at night. She is scheduled to see Dr. German for consideration of surgery. Today's study is for left upper extremity EMG since she has similar symptoms on that side. Reason for referral: Evaluate for left Carpal Tunnel Syndrome Procedure done: Left upper extremity EMG/NCS Precautions and/or limitations: None The limb temperature was monitored continuously and remained between 32-36 degrees C during the performance of the NCS. Nerve Conduction Studies Anti Sensory Summary Table ?Stim Site NR Onset (ms) Norm Onset (ms) Peak (ms) Norm Peak (ms) O-P Amp (?V) Norm O-P Amp Site1 Site2 Delta-0 (ms) Dist (cm) Fili (m/s) Norm Fili (m/s) Left Median Anti Sensory (2nd Digit) Wrist ? 3.1 3.8 <3.6 7.5 >10 Wrist 2nd Digit 3.1 14.0 45 Left Ulnar Anti Sensory (5th Digit) Wrist ? 2.8 3.4 <3.7 57.6 >15.0 Wrist 5th Digit 2.8 14.0 50 Motor Summary Table ?Stim Site NR Onset (ms) Norm Onset (ms) O-P Amp (mV) Norm O-P Amp iAmp (mV) Amp (1st) (%) Site1 Site2 Delta-0 (ms) Dist (cm) Fili (m/s) Norm Fili (m/s) Left Median Motor (Abd Poll Brev) Wrist ? 3.7 <3.9 10.6 >4.5 12.9 100.0 Elbow Wrist 3.6 20.0 56 >45 Elbow ? 7.3 10.2 11.7 96.2 Left Ulnar Motor (Abd Dig Minimi) Wrist ? 2.7 <3.0 6.8 >5 8.4 100.0 B Elbow Wrist 2.8 16.0 57 >45 B Elbow ? 5.5 6.3 8.1 92.6 A Elbow B Elbow 1.2 10.0 83 >45 A Elbow ? 6.7 5.6 7.2 82.4 Comparison Summary Table ?Stim Site NR Peak (ms) Norm Peak (ms) P-T Amp (?V) Site1 Site2 Delta-P (ms) Norm Delta (ms) Left Median/Radial Dig I Comparison (Digit 1 - 10cm) Median ? 3.4 <2.9 58.6 Median Radial 0.8 Radial ? 2.6 <2.8 17.4 EMG ?Side Muscle Nerve Root Ins Act Fibs Psw Amp Dur Poly Recrt Int Pat Comment Left 1stDorInt Ulnar C8-T1 Nml Nml Nml Nml Nml 0 Nml Complete Left FlexCarRad Median C6-7 Nml Nml Nml Nml Nml 0 Nml Complete Left Biceps Musculocut C5-6 Nml Nml Nml Nml Nml 0 Nml Complete Left Triceps Radial C6-7-8 Nml Nml Nml Nml Nml 0 Nml Complete Left Deltoid Axillary C5-6 Nml Nml Nml Nml Nml 0 Nml Complete FINDINGS: Left median sensory nerve showed prolonged peak latency and small amplitude. Significant interlatency difference between left median and radial sensory nerves. All other nerves tested were within normal. Concentric needle EMG was performed in selected muscles of the left upper extremity. Study did not reveal signs of electric abnormalities as shown in the table below. IMPRESSION: 1. This is an abnormal study. 2. There is electrodiagnostic evidence for left mild median neuropathy at the wrist, consistent with carpal tunnel syndrome. 3. There is no electrodiagnostic evidence for ulnar neuropathy, brachial plexopathy, or cervical radiculopathy. Thank you for your kind referral. Alyx Angel MD, JILLIAN Board Certified, [place] [employer] and [employer] (ABPMR) Board Certified, [place] [employer] Electro[employer]ostic [employer] (ABEM) CODIN [id number] MTDD
== END 2023-05-07 14:47 | disposition home or self-care (01) ==
LOC: HO.NEURO 14:46
PROVIDERS: PCP Internal Medicine; Visit Provider Physical Medicine & Rehabilitation
DX: G56.02 Carpal tunnel syndrome, left upper limb (principal)
CPT/HCPCS: 95886; 95909

== ENCOUNTER → 2023-05-07 14:48 | Outpatient (BNV) | payer OTHER, SELFPAY | PROVIDERS: PCP Internal Medicine; Visit Provider Physical Medicine & Rehabilitation | DX: G56.12 Other lesions of median nerve, left upper limb (principal); G56.02 Carpal tunnel syndrome, left upper limb | CPT/HCPCS: 95886; 95909 ==

== ENCOUNTER 2023-06-06 09:57 | Outpatient (REF) | payer OTHER, SELFPAY ==
[2023-06-06 11:12] LABS: MANUAL DIFF FLAG NO
[2023-06-06 11:17] LABS: Basophils Absolute Auto 0.1 X10*3/uL (0.0-0.2); Eosinophils Absolute Auto 0.1 X10*3/uL (0.0-0.4); Eosinophils Percent Auto 1.2 % (0-4); Hematocrit 40.2 % (37.0-47.0); Hemoglobin 12.7 g/dl (12.0-16.0); Imm Gran Abs Auto 0.02 X10*3/uL (0.00-0.03); Imm Gran Pct Auto 0.3 % (0.0-0.4); Lymphocytes Absolute Auto 2.6 X10*3/uL (1.2-4.9); Lymphocytes Percent Auto 45.2 % (20-40); Mean Corpuscular HGB Conc 31.6 g/dl (31.0-35.0); Mean Corpuscular Volume 91.8 fL (80.0-98.0); Mean Platelet Volume 10.8 fL (9.4-12.3); Monocytes Absolute Auto 0.3 X10*3/uL (0.1-1.2); Monocytes Percent Auto 4.5 % (2-11); Neutrophils Absolute Auto 2.8 x10*3/uL (2.0-8.3); Neutrophils Percent Auto 47.8 % (45-73); Platelet Count 256 X10*3/uL (160-400); Red Blood Count 4.38 X10*6/uL (4.20-5.50); Red Cell Distribution Width 13.1 % (11.0-16.0); White Blood Count 5.8 X10*3/uL (4.8-10.8)
[2023-06-06 11:40] LABS: Estimated Average Glucose 123 mg/dL; Hemoglobin A1c % 5.9 % (<6.0)
[2023-06-06 11:44] LABS: Alanine Aminotransferase 15 U/L (0-31); Albumin Level 4.6 g/dL (3.5-5.0); Alkaline Phosphatase 58 U/L (39-117); Anion Gap 17 (12-20); Aspartate Amino Transferase 18 U/L (5-31); Bilirubin Total 1.1 mg/dL (0.0-1.0); Blood Urea Nitrogen 12 mg/dL (9-16); Calcium 9.9 mg/dL (8.4-10.2); Carbon Dioxide 21 mmol/L (22-29); Chloride 107 mmol/L (96-108); Estimated Glomerular Filt Rate > 60; Glucose Random 107 mg/dL (60-115); Potassium 3.8 mmol/L (3.3-5.1); Sodium 141 mmol/L (135-145); Total Protein 7.9 g/dL (6.5-8.0)
[2023-06-06 11:47] LABS: Creatinine Urine 156.26 mg/dL; Microalbum/Creatinine Ratio Ur 5.1 ug/mg cr (<30)
[2023-06-06 11:58] LABS: Vitamin B12 1143 pg/mL (200-900)
[2023-06-06 12:00] LABS: TSH reflex Free T4 0.39 uIU/mL (0.32-4.0)
[2023-06-07 14:58] LABS: LDL Cholesterol Direct 75 mg/dL (<100)
[2023-06-10 13:45] LABS: Vitamin D 25-OH, D2 <4 ng/mL; Vitamin D 25-OH, D3 40 ng/mL; Vitamin D 25-OH, Total 40 ng/mL (30-100)
== END 2023-06-06 09:58 | disposition home or self-care (01) ==
LOC: HO.HMGCLDS 09:57
PROVIDERS: PCP Internal Medicine; Visit Provider Internal Medicine
DX: Z00.01 Encounter for general adult medical examination with abnormal findings (principal); E13.9 Other specified diabetes mellitus without complications; E03.8 Other specified hypothyroidism; R20.2 Paresthesia of skin; E78.9 Disorder of lipoprotein metabolism, unspecified; R79.89 Other specified abnormal findings of blood chemistry
CPT/HCPCS: 36415; 80053; 82043; 82306; 82570; 82607; 83036; 83721; 84443; 85025

== ENCOUNTER 2023-06-09 13:38 | Outpatient (AMB) | payer OTHER, SELFPAY ==
[2023-06-09 13:40] VITALS: BP 120/82; PULSE 82; O2SAT 96; BMI 32.3
--- NOTE | 2023-06-09 13:40 | MHC.PC.OV ---
Vital Signs 06/09/23 13:40 Height 5 ft Weight 165 lb 4 oz BMI 32.3 BP 120/82 Blood Pressure Location Lt brachial Position Sitting Pulse 82 Pulse Source Pulse Oximeter Pulse Oximetry (%) 96 Oxygen Delivery Method Room Air Intake Visit Reasons: Follow Up~ Allergies No Known Allergies [No Known Allergies*] Allergy (Verified 06/09/23 13:40) Medication List - Last Reconciled 06/09/23 by Whitney Gavin MD atorvastatin 10 mg PO DAILY 90 days cholecalciferol (vitamin D3) (Vitamin D3) 2,000 units PO DAILY 90 days levothyroxine 75 mcg PO DAILY 90 days metformin 1,000 mg PO DAILY 90 days Tobacco use date assessed: 06/09/23 Dental Screening Dental Screen Date: 06/09/23 Did you have a dental visit in the last 12 months?: Yes Did you have a dental problem in the last 6 months where you did not have access to dental care?: No Was dental information given to patient?: Patient has dentist HPI Follow Up~ HPI Details Patient is a 62-year-old female came in today for her regular follow-up appointment Patient offer no new complaints today she is doing well Labs done recently reviewed with the patient hemoglobin A1c is 5.9 She is taking be 12 supplement, her level is very high I have told her to stop taking that for a while. Nerve conduction study showed moderate carpal tunnel patient has already seen a specialist for treatment Diabetes mellitus: she is on metformin 1 g daily.? Next set of lab order placed Hypothyroidism:? Patient is currently taking levothyroxine 75 mcg, TSH within normal limit Lipid Disorder: Continue atorvastatin 10 mg daily and diet-controlled.? Repeat labs for LFT monitoring before next visit BMI is elevated need to lose weight.? Mammogram due in July Pap smear through [facility] Colonoscopy was at age 58 Follow-up 3 months Social history, family history, surgical history was reviewed today FORMERLY [facility], [facility]1983 Medical History Dyslipidemia Hypothyroidism Surgical History History of colonoscopy History of modified radical mastectomy of right breast History of reconstruction of right breast History of surgery Family History Father Cancer Leukemia Mother Diabetes mellitus Ovarian cancer Maternal Grandmother Cancer Ovarian cancer Maternal Grandfather No problems noted. Paternal Grandmother No problems noted. Paternal Grandfather No problems noted. Paternal Aunt Breast cancer Sister No problems noted. Son No problems noted. Social History (Updated 04/30/23 @ 11:05 by SENAIT Huff) Household Members: Children Household Members Other:: Divorce. Lives w/son in 2 family. 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 How often do you have a drink containing alcohol?: Never 3. How often do you have six or more drinks on one occasion?: Never Total Score: 0 Score Reviewed/Action Taken: Yes JUSTUS-7 AMB Questionnaire JUSTUS-7 Date JUSTUS - 7 assessed: 10/22/22 Source: Developed by Drs. Sandeep Cruz, Ninfa Edwards, Ruddy Roberts and colleagues, with an educational charissa from [employer]. Review of Systems Const Denies chills and Denies fever(s) ENT Denies epistaxis and Denies nasal discharge Card Denies chest pain Resp Denies chest congestion, Denies cough and Denies hemoptysis GI Denies diarrhea and Denies nausea Skin/Breast Denies rash Neuro Reports no additional complaints Psych Reports no additional complaints Endo Reports no additional complaints Physical exam (Primary Care) Vital Signs: Last Vital Signs Pulse 82 06/09/23 13:40 BP 120/82 06/09/23 13:40 Pulse Ox 96 06/09/23 13:40 Oxygen Delivery Method Room Air 06/09/23 13:40 BMI result Body Mass Index 32.3 Tobacco/Smoking Status: Tobacco use Status Tobacco use date assessed 06/09/23 06/09/23 13:41 Patient Tobacco Use Status Never used Tobacco 06/09/23 13:41 e-Cigarette/Vaping Use Never Used 06/09/23 13:41 Thrive Assessment: Date of Thrive Assessment Date Thrive assessed 10/22/22 06/09/23 13:41 Const General: cooperative, comfortable and no acute distress Orientation/consciousness: patient oriented x3 HENMT Head: Yes normocephalic Eyes General: appearance normal, both eyes and all related structures Neck Neck: Yes supple Resp Effort & Inspection: normal respiratory effort, no cough and no stridor Cardio Rhythm: regular rhythm Heart sounds: S1 normal heart sound present and S2 normal heart sound present Skin General skin exam: turgor normal Neuro General: patient oriented x3, tone normal and moves all extremities Extrem Right lower extremity: no edema Left lower extremity: no edema Results Reviewed Results Reviewed: Laboratory Tests 06/06/23 10:08 Hemoglobin A1c % 5.9 Total Bilirubin 1.1 H AST 18 ALT 15 LDL Cholesterol Direct 75 Vitamin B12 1143 H TSH 0.39 Assessment and Plan Assessment & Plan (1) Diabetes 1.5, managed as type 2: Code(s): E13.9 - Other specified diabetes mellitus without complications (2) Lipid disorder: Code(s): E78.9 - Disorder of lipoprotein metabolism, unspecified (3) LFT elevation: Code(s): R79.89 - Other specified abnormal findings of blood chemistry (4) Other specified hypothyroidism: Code(s): E03.8 - Other specified hypothyroidism (5) Obesity (BMI 30.0-34.9): Code(s): E66.9 - Obesity, unspecified Plan Patient is a 62-year-old female came in today for her regular follow-up appointment Patient offer no new complaints today she is doing well Labs done recently reviewed with the patient hemoglobin A1c is 5.9 She is taking be 12 supplement, her level is very high I have told her to stop taking that for a while. Nerve conduction study showed moderate carpal tunnel patient has already seen a specialist for treatment Diabetes mellitus: she is on metformin 1 g daily.? Next set of lab order placed Hypothyroidism:? Patient is currently taking levothyroxine 75 mcg, TSH within normal limit Lipid Disorder: Continue atorvastatin 10 mg daily and diet-controlled.? Repeat labs for LFT monitoring before next visit BMI is elevated need to lose weight.? Mammogram due in July Pap smear through [facility] Colonoscopy was at age 58 Follow-up 3 months Social history, family history, surgical history was reviewed today Orders: Orders Microalbumin, Random (w Creat) Today E13.9 - Other specified diabetes mellitus without complications Hemoglobin A1c Today E03.8 - Other specified hypothyroidism, E13.9 - Other specified diabetes mellitus without complications, E66.9 - Obesity, unspecified, E78.9 - Disorder of lipoprotein metabolism, unspecified, R79.89 - Other specified abnormal findings of blood chemistry Comprehensive Met. Panel Today E03.8 - Other specified hypothyroidism, E13.9 - Other specified diabetes mellitus without complications, E66.9 - Obesity, unspecified, E78.9 - Disorder of lipoprotein metabolism, unspecified, R79.89 - Other specified abnormal findings of blood chemistry Vitamin B12 Today E03.8 - Other specified hypothyroidism, E13.9 - Other specified diabetes mellitus without complications, E66.9 - Obesity, unspecified, E78.9 - Disorder of lipoprotein metabolism, unspecified, R79.89 - Other specified abnormal findings of blood chemistry Coding Level of Care Code Est Pt Level 4 (52699) Diagnoses Diabetes 1.5, managed as type 2 E13.9 Lipid disorder E78.9 LFT elevation R79.89 Other specified hypothyroidism E03.8 Obesity (BMI 30.0-34.9) E66.9
== END 2023-06-09 15:11 | disposition home or self-care (01) ==
PROVIDERS: PCP Internal Medicine; Visit Provider Internal Medicine
DX: E13.9 Other specified diabetes mellitus without complications (principal); E78.9 Disorder of lipoprotein metabolism, unspecified; E66.9 Obesity, unspecified; Z68.32 Body mass index [BMI] 32.0-32.9, adult; R79.89 Other specified abnormal findings of blood chemistry; E03.8 Other specified hypothyroidism
CPT/HCPCS: 99214

== ENCOUNTER 2023-06-30 08:45 | Outpatient (AMB) | payer OTHER, SELFPAY ==
[2023-06-30 08:56] VITALS: BMI 32.2
--- NOTE | 2023-06-30 08:56 | MHC.OFFVIS ---
Intake Vital Signs 06/30/23 08:56 Height 5 ft Weight 165 lb BMI 32.2 Intake Visit Reasons: OV- Discuss sx CTR Intake Note: Jose Cruz 62 yr old female presents today to discuss treatment options vs surgical intervention for her right CTS. Last seen with Dr. Addison who referred patient to discuss options with Dr. German. Patient also has left hand CTS however her right is currently worse. Allergies No Known Allergies [No Known Allergies*] Allergy (Verified 06/30/23 08:59) HPI OV- Discuss sx CTR HPI Details Jose Cruz is a 62 year old right hand dominant woman who presents to discuss numbness and tingling in her right hand. 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 She complains of numbness and tingling in all of the fingers of the right hand including the small finger. She says she has some sensation but it is not normal. She also reports that she had an accident some years ago where she had a transverse laceration across the D IP areas of the index middle and ring fingers, and it sounds like she had some loss of sensation after that injury. She does report he has some sensation but it is not normal. She also complains of some pain in the deltoid area of her left shoulder. She is a Diabetic and is well-controlled. [facility] Medical History Dyslipidemia Hypothyroidism Surgical History History of colonoscopy History of modified radical mastectomy of right breast History of reconstruction of right breast History of surgery Family History Father Cancer Leukemia Mother Diabetes mellitus Ovarian cancer Maternal Grandmother Cancer Ovarian cancer Maternal Grandfather No problems noted. Paternal Grandmother No problems noted. Paternal Grandfather No problems noted. Paternal Aunt Breast cancer Sister No problems noted. Son No problems noted. Social History Household Members: Children Household Members Other:: Divorce. Lives w/son in 2 family. 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 Sexual orientation: Straight/Heterosexual Gender identity: Female Cognitive needs: No Hearing needs: No Vision needs: Yes Review of Systems Const All systems reviewed & are unremarkable except as noted in HPI and below Physical Exam Vital Signs: BMI result Body Mass Index 32.2 Const General: cooperative, healthy appearing and no acute distress Orientation/consciousness: patient oriented x3 HEENT Head: Yes normocephalic and Yes atraumatic Eyes EOM: EOMs intact bilaterally Resp Effort & Inspection: normal respiratory effort and able to speak in complete sentences Cardio Jugular venous distension: no JVD Skin General skin exam: turgor normal Rashes: no rashes Neuro General: patient oriented x3 Extrem Other: Evaluation of Bilateral Upper Extremity: The patient is alert, oriented, and in no acute distress Neuro: Median, Ulnar, Radial nerves motor and sensory were intact except for some decreased subjective sensation to the tips of all of the fingers of the right hand. No thenar or intrinsic wasting Good APB muscle belly firing and good finger cross Vascular: Cap refill brisk ROM: She can make a fist and extend all her digits No locking or catching Good FDP function in all of the fingers. Patient describes having a transverse laceration at the D IP creases some years ago. Skin: No lacerations or abrasions. General: No Ecchymosis. No Erythema or evidence of infection. Nerve Conduction Studies: IMPRESSION: 1. Moderate right median neuropathy across the carpal tunnel. 2. Moderate right ulnar neuropathy across the cubital tunnel. Julio Gavin MD 04/02/2023 IMPRESSION: 1. This is an abnormal study. 2. There is electrodiagnostic evidence for left mild median neuropathy at the wrist, consistent with carpal tunnel syndrome. 3. There is no electrodiagnostic evidence for ulnar neuropathy, brachial plexopathy, or cervical radiculopathy. Thank you for your kind referral. Alyx Angel MD, JILLIAN 05/07/23 Psych Appearance: grossly normal Affect: normal affect Attitude: cooperative Assessment & Plan Assessment & Plan (1) Carpal tunnel syndrome of right wrist: Code(s): G56.01 - Carpal tunnel syndrome, right upper limb (2) Carpal tunnel syndrome of left wrist: Code(s): G56.02 - Carpal tunnel syndrome, left upper limb (3) Cubital tunnel syndrome on right: Code(s): G56.21 - Lesion of ulnar nerve, right upper limb Plan Assessment & Plan: 1. Right Carpal tunnel syndrome, moderate Decreased subjective sensation in the median nerve distribution 2. Right cubital tunnel syndrome, moderate With decreased subjective sensation in the ulnar nerve distribution I educated her about this condition I discussed operative and non-operative treatment options The patient would like to proceed with surgery, beginning with her right hand The risks and benefits of operative treatment were discussed with the patient and the patient wishes to proceed with surgery. These risks include, but are not limited to risk of damage to blood vessels, nerves, tendons, infection, recurrence, incomplete relief of preoperative symptoms, persistent pain, possible need for further surgery and the risks associated with regional blocks and anesthesia. The plan is to take the patient to the operating room sometime in the next few weeks for the following procedures: 1. Right carpal tunnel release 2. Right cubital tunnel release versus transposition All of the preoperative paperwork including the consent was filled out today. All the patient's questions were answered. The patient understands that they will be contacted by our associate professor of surgery soon to schedule this procedure She denies blood thinners, asthma, heart, lung, kidney issues She is a Diabetic, HgA1c 5.9% on 06/06/23 3. Left Carpal tunnel syndrome, mild We can further evaluate this condition at a later date. Coding Level of Care Code New Pt Level 4 (16001) Diagnoses Carpal tunnel syndrome of right wrist G56.01 Carpal tunnel syndrome of left wrist G56.02 Cubital tunnel syndrome on right G56.21
== END 2023-06-30 09:46 | disposition home or self-care (01) ==
PROVIDERS: PCP Internal Medicine; Visit Provider Orthopaedic Surgery
DX: G56.03 Carpal tunnel syndrome, bilateral upper limbs (principal); G56.21 Lesion of ulnar nerve, right upper limb
CPT/HCPCS: 99214

== ENCOUNTER → 2023-06-30 08:45 | Outpatient (BNVA) | payer OTHER, SELFPAY | PROVIDERS: PCP Internal Medicine; Visit Provider Orthopaedic Surgery | DX: G56.03 Carpal tunnel syndrome, bilateral upper limbs (principal); G56.21 Lesion of ulnar nerve, right upper limb | CPT/HCPCS: 99212 ==

== ENCOUNTER 2023-08-13 08:48 | Outpatient (REF) | payer OTHER, SELFPAY ==
--- NOTE | ~2023-08-13 | MM_ITS ---
EXAMINATION: MM SCREENING DIGITAL BREAST TOMOSYNTHESIS, LEFT CLINICAL INFORMATION: Screening. Asymptomatic. The patient is status post right mastectomy. COMPARISON: Mammography: This study is compared with prior exams dating back to TECHNIQUE: Digital breast tomosynthesis is performed in both the craniocaudal and mediolateral oblique views along with computer-aided detection (CAD). Synthesized 2D images are generated from the tomosynthesis. FINDINGS: The breasts are heterogeneously dense, which may obscure small masses (ACR BI-RADS breast composition Category c). There are no significant masses, abnormal calcifications, or other abnormalities. MM/MM tomosynthesis screening LT IMPRESSION: No mammographic evidence of malignancy. ASSESSMENT: BI-RADS BI-RADS 1 - Negative RECOMMENDATION: Routine annual mammography screening. 1 year F/U This examination should not preclude the clinical evaluation of a suspicious palpable abnormality. This patient's information was entered into a reminder system with a target due date for their next mammogram.
== END 2023-08-13 08:49 | disposition home or self-care (01) ==
LOC: HO.MAMMO 08:48
PROVIDERS: Absent Provider Internal Medicine Medical Oncology; PCP Internal Medicine; Visit Provider Internal Medicine
DX: Z12.31 Encounter for screening mammogram for malignant neoplasm of breast (principal)
CPT/HCPCS: 77063; 77067

== ENCOUNTER → 2023-08-13 09:00 | Outpatient (BNV) | payer OTHER, SELFPAY | PROVIDERS: Absent Provider Internal Medicine Medical Oncology; PCP Internal Medicine; Visit Provider Radiology Diagnostic Radiology | DX: Z12.31 Encounter for screening mammogram for malignant neoplasm of breast (principal) | CPT/HCPCS: 77063; 77067 ==

== ENCOUNTER 2023-08-21 09:27 | Outpatient (AMB) | payer OTHER, SELFPAY ==
[2023-08-21 09:32] VITALS: BP 126/74; PULSE 105; O2SAT 98; BMI 34.1
--- NOTE | 2023-08-21 09:32 | A.OFFPC_ITS ---
Vital Signs 08/21/23 09:32 Height 5 ft Weight 174 lb 6 oz BMI 34.1 BP 126/74 Blood Pressure Location Rt brachial Position Sitting Pulse 105 H Pulse Source Pulse Oximeter Pulse Oximetry (%) 98 Oxygen Delivery Method Room Air Intake Visit Reasons: 6m follow up Allergies No Known Allergies [No Known Allergies*] Allergy (Verified 08/21/23 09:34) Medication List - Last Reconciled 08/21/23 by Whitney Gavin MD atorvastatin 10 mg PO DAILY 90 days cholecalciferol (vitamin D3) (Vitamin D3) 2,000 units PO DAILY 90 days levothyroxine 75 mcg PO DAILY 90 days metformin 1,000 mg PO DAILY 90 days Tobacco use date assessed: 08/21/23 Dental Screening Dental Screen Date: 08/21/23 Did you have a dental visit in the last 12 months?: Yes Did you have a dental problem in the last 6 months where you did not have access to dental care?: No Was dental information given to patient?: Patient has dentist HPI 6m follow up HPI Details Patient is a 63-year-old female came in today for her regular follow-up appointment Patient is under treatment for osteoporosis through [facility] Dr. Schaefer and is on Zolendronic acid Nerve conduction study showed moderate carpal tunnel right hand and ulnar nerve involvement as well Patient is scheduled to have surgery the [facility] September 07 Diabetes mellitus: she is on metformin 1 g daily.? Hemoglobin A1c is stable Hypothyroidism:? Patient is currently taking levothyroxine 75 mcg, TSH within normal limit Lipid Disorder: Continue atorvastatin 10 mg daily and diet-controlled.? Repeat labs for LFT monitoring before next visit BMI is elevated need to lose weight.? Colonoscopy was at age 58 Follow-up in November [facility] Medical History Hypothyroidism Dyslipidemia Surgical History History of surgery History of colonoscopy History of reconstruction of right breast History of modified radical mastectomy of right breast Family History Father Cancer Leukemia Mother Diabetes mellitus Ovarian cancer Maternal Grandmother Cancer Ovarian cancer Maternal Grandfather No problems noted. Paternal Grandmother No problems noted. Paternal Grandfather No problems noted. Paternal Aunt Breast cancer Sister No problems noted. Son No problems noted. Social History Household Members: Children Household Members Other:: Divorce. Lives w/son in 2 family. 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 How often do you have a drink containing alcohol?: Never 3. How often do you have six or more drinks on one occasion?: Never Total Score: 0 Score Reviewed/Action Taken: Yes JUSTUS-7 AMB Questionnaire JUSTUS-7 Date JUSTUS - 7 assessed: 10/22/22 Source: Developed by Drs. Sandeep Cruz, Ninfa Edwards, Ruddy Roberts and colleagues, with an educational charissa from [employer]. Review of Systems Const Denies chills and Denies fever(s) ENT Denies epistaxis and Denies nasal discharge Card Denies chest pain Resp Denies chest congestion, Denies cough and Denies hemoptysis GI Denies diarrhea and Denies nausea Skin/Breast Denies rash Neuro Reports no additional complaints Psych Reports no additional complaints Endo Reports no additional complaints Physical exam (Primary Care) Vital Signs: Last Vital Signs Pulse 105 H 08/21/23 09:32 BP 126/74 08/21/23 09:32 Pulse Ox 98 08/21/23 09:32 Oxygen Delivery Method Room Air 08/21/23 09:32 BMI result Body Mass Index 34.1 Tobacco/Smoking Status: Tobacco use Status Tobacco use date assessed 08/21/23 08/21/23 09:35 Patient Tobacco Use Status Never used Tobacco 08/21/23 09:35 e-Cigarette/Vaping Use Never Used 08/21/23 09:35 Thrive Assessment: Date of Thrive Assessment Date Thrive assessed 10/22/22 08/21/23 09:35 Const General: cooperative, comfortable and no acute distress Orientation/consciousness: patient oriented x3 HENMT Head: Yes normocephalic Eyes General: appearance normal, both eyes and all related structures Neck Neck: Yes supple Resp Effort & Inspection: normal respiratory effort, no cough and no stridor Cardio Rhythm: regular rhythm Heart sounds: S1 normal heart sound present and S2 normal heart sound present Skin General skin exam: turgor normal Neuro General: patient oriented x3, tone normal and moves all extremities Extrem Right lower extremity: no edema Left lower extremity: no edema Assessment and Plan Assessment & Plan (1) Diabetes 1.5, managed as type 2: Code(s): E13.9 - Other specified diabetes mellitus without complications (2) Lipid disorder: Code(s): E78.9 - Disorder of lipoprotein metabolism, unspecified (3) LFT elevation: Code(s): R79.89 - Other specified abnormal findings of blood chemistry (4) Other specified hypothyroidism: Code(s): E03.8 - Other specified hypothyroidism (5) Obesity (BMI 30.0-34.9): Code(s): E66.9 - Obesity, unspecified (6) Osteoporosis: Code(s): M81.0 - Age-related osteoporosis without current pathological fracture Qualifiers: Osteoporosis type: age-related Presence of current pathological fracture: unspecified Qualified Code(s): M81.0 - Age-related osteoporosis without current pathological fracture Plan Patient is a 63-year-old female came in today for her regular follow-up appointment Patient is under treatment for osteoporosis through [facility] Dr. Schaefer and is on Zolendronic acid Nerve conduction study showed moderate carpal tunnel right hand and ulnar nerve involvement as well Patient is scheduled to have surgery the [facility] September 07 Diabetes mellitus: she is on metformin 1 g daily.? Hemoglobin A1c is stable Hypothyroidism:? Patient is currently taking levothyroxine 75 mcg, TSH within normal limit Lipid Disorder: Continue atorvastatin 10 mg daily and diet-controlled.? Repeat labs for LFT monitoring before next visit BMI is elevated need to lose weight.? Colonoscopy was at age 58 Follow-up in November Orders: Orders Hemoglobin A1c 3 Months E03.8 - Other specified hypothyroidism, E13.9 - Other specified diabetes mellitus without complications, E66.9 - Obesity, unspecified, E78.9 - Disorder of lipoprotein metabolism, unspecified, M81.0 - Age-related osteoporosis without current pathological fracture, R79.89 - Other specified abnormal findings of blood chemistry Microalbumin, Random (w Creat) 3 Months E03.8 - Other specified hypothyroidism, E13.9 - Other specified diabetes mellitus without complications, E66.9 - Obesity, unspecified, E78.9 - Disorder of lipoprotein metabolism, unspecified, M81.0 - Age-related osteoporosis without current pathological fracture, R79.89 - Other specified abnormal findings of blood chemistry Comprehensive Met. Panel 3 Months E03.8 - Other specified hypothyroidism, E13.9 - Other specified diabetes mellitus without complications, E66.9 - Obesity, unspecified, E78.9 - Disorder of lipoprotein metabolism, unspecified, M81.0 - Age-related osteoporosis without current pathological fracture, R79.89 - Other specified abnormal findings of blood chemistry LDL Cholesterol Direct 3 Months E03.8 - Other specified hypothyroidism, E13.9 - Other specified diabetes mellitus without complications, E66.9 - Obesity, unspecified, E78.9 - Disorder of lipoprotein metabolism, unspecified, M81.0 - Age-related osteoporosis without current pathological fracture, R79.89 - Other specified abnormal findings of blood chemistry TSH reflex Free T4 Today E03.8 - Other specified hypothyroidism Coding Level of Care Code Est Pt Level 4 (13726) Diagnoses Diabetes 1.5, managed as type 2 E13.9 Lipid disorder E78.9 LFT elevation R79.89 Other specified hypothyroidism E03.8 Obesity (BMI 30.0-34.9) E66.9 Age related osteoporosis, unspecified pathological fracture presence M81.0 Osteoporosis type: age-related Presence of current pathological fracture: unspecified
== END 2023-08-21 10:21 | disposition home or self-care (01) ==
PROVIDERS: PCP Internal Medicine; Visit Provider Internal Medicine
DX: E13.9 Other specified diabetes mellitus without complications (principal); E66.9 Obesity, unspecified; Z68.34 Body mass index [BMI] 34.0-34.9, adult; E78.9 Disorder of lipoprotein metabolism, unspecified; R79.89 Other specified abnormal findings of blood chemistry; E03.8 Other specified hypothyroidism; M81.0 Age-related osteoporosis without current pathological fracture
CPT/HCPCS: 99214

== ENCOUNTER → 2023-08-25 13:37 | Outpatient (BNVA) | payer OTHER, SELFPAY | PROVIDERS: PCP Internal Medicine; Visit Provider Orthopaedic Surgery ==

== ENCOUNTER 2023-09-02 10:59 | Outpatient (REF) | payer OTHER, SELFPAY ==
--- NOTE | ~2023-09-02 | MM_ITS ---
EXAMINATION: BONE DENSITOMETRY CLINICAL INDICATION: History of osteopenia. COMPARISON: Previous BD dated 07/31/2021 and baseline BD dated 11/01/2013. TECHNIQUE: Using a [employer] Vascular DXA System (software version: 13.1) manufactured by [employer], dual-energy x-ray absorptiometry was performed of the lumbar spine and left hip. The images are of good technical quality. Summary results are attached. FINDINGS: LEFT FEMUR, NECK: Current: BMD 0.575 g/cm2, Z-score -2.4, T-score -3.3, osteoporosis. Prior: BMD 0.859 g/cm2. Baseline: BMD 0.790 g/cm2. LEFT FEMUR, TOTAL: Current: BMD 0.633 g/cm2, Z-score -2.4, T-score -3.0, osteoporosis, 32.5% decrease from previous, 25.4% decrease from baseline (<5% change is not significant). Prior: BMD 0.938 g/cm2. Baseline: BMD 0.848 g/cm2. AP SPINE L1-L4: Current: BMD 1.074 g/cm2, Z-score -0.2, T-score -0.9, normal, 5.7% increase from previous, 17.8% increase from baseline (<5% change is not significant). Prior: BMD 1.016 g/cm2. Baseline: BMD 0.912 g/cm2. IDENTIFIED RISK FACTORS: Early menopause, secondary osteoporosis (type 1 diabetes). HISTORY OF FRACTURE: None listed. MEDICATIONS: Vitamin D. MM/XR DEXA axial skeleton IMPRESSION: 1. DIAGNOSIS: Osteoporosis based on the lowest T-score value of -3.3 in the femoral neck applying World Health Organization criteria. 2. 10-YEAR FRACTURE RISK PREDICTION, FRAX: According to the guidelines, FRAX calculation should only be performed on patients in the osteopenia bone density category. Therefore, FRAX was not performed on this patient. 3. Treatment Recommendations: NOF guidelines recommend consideration for treatment in postmenopausal women and men age 50 and older presenting with the following: -A hip or vertebral (clinical or morphometric) fracture. -T-score less than or equal to -2.5 at the femoral neck or spine after appropriate evaluation to exclude secondary causes. -Low bone mass at the hip or spine and a 10-year fracture probability by FRAX of greater than or equal to 3% for hip fracture or greater than or equal to 20% for major osteoporotic fracture based on the [place] adapted WHO algorithm. 4. Other Recommendations: All treatment decisions require clinical judgment and consideration of individual patient factors, including patient preferences, comorbidities, previous drug use, risk factors not captured in the FRAX model (e.g. frailty, falls, vitamin D deficiency, increased bone turnover, interval significant decline in bone density) and possible under or overestimation of fracture risk by FRAX. Additional medical evaluation for secondary cause of low bone mineral density may be appropriate. FUTURE SCAN RECOMMENDATION: People with diagnosed cases of osteoporosis or at high risk for fracture should have regular bone mineral density tests. For patients eligible for Medicare, routine testing is allowed once every 2 years. The testing frequency can be increased to one year for patients who have rapidly progressing disease, those who are receiving or discontinuing medical therapy to restore bone mass, or have additional risk factors.
== END 2023-09-02 11:00 | disposition home or self-care (01) ==
LOC: HO.MAMMO 10:59
PROVIDERS: PCP Internal Medicine; Visit Provider Internal Medicine Medical Oncology
DX: Z13.820 Encounter for screening for osteoporosis (principal); Z78.0 Asymptomatic menopausal state; Z85.3 Personal history of malignant neoplasm of breast
CPT/HCPCS: 77080

== ENCOUNTER 2023-09-07 08:26 | Day surgery (SDC) | payer OTHER, SELFPAY ==
[2023-09-03 10:51] VITALS: BMI 34.0
[2023-09-07] VITALS (7 sets, daily range): BP systolic 117–135; BP diastolic 66–79; PULSE 85–98; RESP 16; TEMP 36.1–36.3; O2SAT 95–98; BMI 33.6
--- NOTE | 2023-09-07 09:19 | P.OP_ITS ---
Operative Note Operative Note Date of Service: 09/07/23 Narrative: Operative Note Narrative: Preop diagnosis: 1. Right Cubital tunnel syndrome 2. Right carpal tunnel syndrome Postop diagnosis: Same Procedure: 1. Right Cubital Tunnel Release 2. Right carpal tunnel release Surgeon: Stephanie German MD Anesthesia: General Anesthesia Findings: Thickening and fibrosis about the ulnar nerve at the cubital tunnel Implants: none Tourniquet time: 40 minutes EBL: 5.0 ml Specimen: none Drains: None Complications: None Disposition: Brought to the recovery room in stable condition Plan: Follow-up in 10-14 days for wound check, and suture removal Indications: The patient is 63 years old with right cubital tunnel syndrome and right carpal tunnel syndrome. . The risks and benefits of operative treatment, including but not limited to risk of damage to blood vessels, nerves, tendons, infection, recurrence, persistent pain or numbness, incomplete resolution of preoperative symptoms, or need for further surgery were discussed with the patient and they wished to proceed with surgery. Procedure: Once consent was obtained patient was brought back to the operating suite and placed in the operating table in a supine position. Perioperative a ntibiotics and anesthesia was administered by the anesthesia team. The limb was prepped and draped in a standard surgical fashion, and a sterile tourniquet applied to the proximal aspect of the right upper extremity. The limb was elevated exsanguinated with Esmarch bandage and the tourniquet inflated to 250 mm of mercury for a total tourniquet time of 40 minutes. Once assured that we had a good block, a 2.0 cm longitudinal incision was made centered over the right carpal tunnel. The incision was made through the skin to the subcutaneous tissues using a #15 blade. Dissection was made down to the level of the transverse carpal ligament with care being taken to protect the palmar cutaneous nerve. Once the transverse carpal ligament was clearly visualized, a longitudinal incision was made in the transverse carpal ligament 1st using a #15 blade, then using tenotomy scissors under direct visualization. Care was taken to look for and protect the motor branch of the median nerve when seen in this area. Once satisfied with our carpal tunnel release the wound was irrigated with normal saline. The skin edges were reapproximated with some 5 0 Prolene suture material. A 6 cm gently curved but longitudinally oriented incision was made centered over the cubital tunnel of the right upper extremity. Incision was made through the skin to the subcutaneous tissues using a # 15 Blade. I then dissected down to the level of the medial epicondyle and the cubital tunnel using tenotomy scissors. Care was taken to protect the lateral antebrachial cutaneous nerve. The ulnar nerve was identified just posterior to the medial intermuscular septum. The ulnar nerve was released in a proximal to distal direction using tenotomy in iris scissors while directly visualizing and protecting the ulnar nerve. Thickening and fibrosis was appreciated about the ulnar nerve as it passed through the cubital tunnel. The ulnar nerve was assessed as I passed the elbow through full flexion and extension and was found to remain stable within its groove. At this point the tourniquet was deflated and hemostasis obtained with a brief period of local pressure and bipolar electrocautery. The wound was copiously irrigated with normal saline. The subcutaneous layer was closed with 4-0 Vicryl suture, and the skin edges were reapproximated with a running subcuticular 4-0 Monocryl closure. Steri-Strips and Mastisol were also applied.. The wounds were infiltrated with some 1% lidocaine with epinephrine for postop pain control and sterile dressings were applied. The patient appears to have tolerated the procedure well and with no complications. All digits were well vascularized conclusion of the case.
[2023-09-07] MEDS: Lactated Ringers 1,000 ML 100 ML IVCONT (09:22)
[2023-09-07 09:35] LABS: Glucose, Whole Blood 123 mg/dL (60-115)
--- NOTE | 2023-09-07 10:25 | P.CONAN_ITS ---
Documented by User: Felicia Rios NP 09/04/23 11:42 HPI - Anesthesia Eval Consult details Narrative: 63yo F for Right Cubital Tunnel Release, Right Carpal Tunnel Release PMFSH Active Problems Active Problems: All Active Problems (Updated 08/21/23 @ 09:52 by Whitney Gavin MD) Cubital tunnel syndrome on right (Acute) Carpal tunnel syndrome of left wrist (Acute) Carpal tunnel syndrome of right wrist (Acute) Strain of deltoid muscle (Acute) Carpal tunnel syndrome (Acute) Paresthesias in right hand (Acute) Foot pain, left (Acute) LFT elevation (Acute) Lipid disorder (Acute) Other specified hypothyroidism (Acute) Encounter for annual routine gynecological examination (Acute) Encounter for general adult medical examination with abnormal findings (Acute) Encounter for routine gynecological examination (Acute) Obesity (BMI 30.0-34.9) (Acute) History of right breast cancer (Acute) Establishing care with new doctor, encounter for (Acute) Diabetes 1.5, managed as type 2 (Acute) Breast cancer (Acute) Osteoporosis (Acute) Hypothyroidism (Acute) Dyslipidemia (Acute) Past Medical History Medical History (Updated 09/07/23 @ 09:29 by Geena Pruett RN) Diabetes Vitamin D deficiency Hypothyroidism Dyslipidemia Family History Family History Father Cancer Leukemia Mother Diabetes mellitus Ovarian cancer Maternal Grandmother Cancer Ovarian cancer Maternal Grandfather No problems noted. Paternal Grandmother No problems noted. Paternal Grandfather No problems noted. Paternal Aunt Breast cancer Sister No problems noted. Son No problems noted. Surgical History Surgical History History of surgery History of colonoscopy History of reconstruction of right breast History of modified radical mastectomy of right breast Social History Social History Household Members: Children Household Members Other:: Divorce. Lives w/son in 2 family. 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 Sexual orientation: Straight/Heterosexual Gender identity: Female Cognitive needs: No Hearing needs: No Vision needs: Yes Meds Allergies Allergy/AdvReac Type Severity Reaction Status Date / Time No Known Allergies Allergy Verified 09/07/23 09:29 [No Known Allergies*] Exam Height,Weight and Vital Signs: Height 5 ft Weight 78.925 kg Pertinent Lab Results Pertinent Lab Results: Laboratory Tests 08/20/23 11:00 WBC 7.6 Hgb 13.4 Hct 40.9 Plt Count 311 Sodium 143 Potassium 3.8 Chloride 106 Carbon Dioxide 25 BUN 15 Creatinine 0.73 Assessment and Plan Assessment Anesthesia Assessment: Chart Reviewed Documented by User: Geena Queen DO 09/07/23 10:27 HPI - Anesthesia Eval Consult details Narrative: 63yo F for Right Cubital Tunnel Release, Right Carpal Tunnel Release. Recent cough and slight runny nose x 3 days. Afebrile. [facility] Past Medical History Medical History (Updated 09/07/23 @ 09:29 by Geena Pruett RN) Diabetes Vitamin D deficiency Hypothyroidism Dyslipidemia Family History Family History Father Cancer Leukemia Mother Diabetes mellitus Ovarian cancer Maternal Grandmother Cancer Ovarian cancer Maternal Grandfather No problems noted. Paternal Grandmother No problems noted. Paternal Grandfather No problems noted. Paternal Aunt Breast cancer Sister No problems noted. Son No problems noted. Family history of problems with anesthesia: No Surgical History Surgical History History of surgery History of colonoscopy History of reconstruction of right breast History of modified radical mastectomy of right breast History of Problems with Anesthesia: No Social History Social History Household Members: Children Household Members Other:: Divorce. Lives w/son in 2 family. Housing: House Are you a primary medicare contact specialist to a significant other at home: No Do you presently have visiting nurse or other home services: No Alcohol intake: never Patient Tobacco Use Status: Never used Tobacco e-Cigarette/Vaping Use: Never Used Second Hand Smoke Exposure: No Use of substances other than those prescribed or required for medical reasons: No Are you DNR?: No Advance Directives: No Advance Directives Information Provided: Yes service: No Current occupational status: employed Current occupation: [employer] / [email or web address] Sexual orientation: Straight/Heterosexual Gender identity: Female Cognitive needs: No Hearing needs: No Vision needs: Yes Meds Allergies Allergy/AdvReac Type Severity Reaction Status Date / Time No Known Allergies Allergy Verified 09/07/23 09:29 [No Known Allergies*] Exam Exam Date and Time: September 07, 2023 1025 Height,Weight and Vital Signs: Height 5 ft Weight 78.925 kg Height 5 ft Weight 78.018 kg Vital Signs Temperature 97.0 F 09/07/23 08:40 Pulse Rate 85 09/07/23 08:40 Respiratory Rate 16 09/07/23 08:40 Blood Pressure 128/79 09/07/23 08:40 Pulse Oximetry 96 09/07/23 08:40 Oxygen Delivery Method Room Air 09/07/23 08:40 Temperature 97.0 F 09/07/23 08:40 Pulse Rate 85 09/07/23 08:40 Respiratory Rate 16 09/07/23 08:40 Blood Pressure 128/79 09/07/23 08:40 Pulse Oximetry 96 09/07/23 08:40 Oxygen Delivery Method Room Air 09/07/23 08:40 Airway Mallampati Class: II TM Dist: <=3cm Neck ROM: Full Partial: Upper Heart: S1S2 Lungs: CTAB Assessment and Plan Assessment Anesthesia Assessment: Anesthesia Plan Discussed and Chart Reviewed Final Anesthetic Review Family History of Problems with Anesthesia: No History of Problems with Anesthesia: No NPO: Yes ASA Class: II Final Preanesthetic Review: No Changes in Pt Med Stat, Meds/Allgs Chart Reviewed, Consent Obtained/Reviewed and Anes Risks/Benef Reviewed Patient Risk: Low Procedure Risk: Low Anesthetic Plan Anesthetic Plan: GA and Agree w/ Assess. and Plan Disposition: Standard PACU
--- NOTE | 2023-09-07 10:41 | MHC.SHP ---
Pre-Procedural Eval Section A - 24 Hr Update-Section A only Date of Service: 09/07/23 The patient is an INPATIENT: No Changes since office visit: No Cold of Flu in the past 2 weeks, No New Medical Problems, No Changes in Medication and No Patient answered all questions The patient has been examined within 24 hours of the surgical procedure. The History & Physical has been completed within 30 days and I have reviewed it.: Yes Section B - Complete if H&P > 30 days Chief Complaint: Carpal tunnel syndrome, right upper limb Allergies: Allergies Allergy/AdvReac Type Severity Reaction Status Date / Time No Known Allergies Allergy Verified 09/07/23 09:29 [No Known Allergies*] Plan I have reviewed the history and physical and performed a pertinent physical examination on my patient. No changes have occurred unless specified. Time Spent With Patient Time: Total time managing care of this patient today ____ minutes.
== END 2023-09-07 14:42 | disposition home or self-care (01) ==
PROVIDERS: PCP Internal Medicine; Visit Provider Orthopaedic Surgery
PROC: (CPT 64718; principal; 2023-09-07 10:00)
PROC: (CPT 64721; 2023-09-07 10:00)
DX: G56.01 Carpal tunnel syndrome, right upper limb (principal); G56.21 Lesion of ulnar nerve, right upper limb; R20.0 Anesthesia of skin; R20.2 Paresthesia of skin; E11.9 Type 2 diabetes mellitus without complications; E78.5 Hyperlipidemia, unspecified; Z98.890 Other specified postprocedural states
CPT/HCPCS: 64721; 64718; 82947; J0131; J0690; J1100; J2371; J2405; J2704; J3010

== ENCOUNTER → 2023-09-07 08:26 | Outpatient (BNV) | payer OTHER, SELFPAY | PROVIDERS: PCP Internal Medicine; Visit Provider Orthopaedic Surgery | DX: G56.01 Carpal tunnel syndrome, right upper limb (principal); G56.21 Lesion of ulnar nerve, right upper limb | CPT/HCPCS: 64718; 64721 ==

== ENCOUNTER 2023-09-22 10:26 | Outpatient (AMB) | payer OTHER, SELFPAY ==
--- NOTE | 2023-09-22 10:39 | MHC.OFFVIS ---
Intake Vital Signs 09/22/23 10:41 Height 5 ft Weight 170 lb BMI 33.2 Handedness Right Intake Visit Reasons: PO-Rt CTR, RT Cub Zane 09/07/23 Intake Note: Jose Cruz is a 63 year old right hand dominant female who presents today for a post op appointment s/p Rt CTR, RT Cub Zane 09/07/23. She states that her symptoms are coming back slowly. Patient reports no pain or discomfort. Allergies No Known Allergies [No Known Allergies*] Allergy (Verified 09/22/23 10:39) HPI PO-Rt CTR, RT Cub Zane 09/07/23 HPI Details 63-year-old male who presents in the office today 2 weeks status post right cubital and carpal tunnel release, which was performed on 09/07/[address] German. The patient reports her symptoms are returning slowly. She denies any pain or discomfort while in the office today. [facility] Medical History (Updated 09/07/23 @ 09:29 by Geena Pruett RN) Diabetes Vitamin D deficiency Hypothyroidism Dyslipidemia Surgical History (Updated 09/22/23 @ 10:45 by Susy Kwok) History of surgery History of colonoscopy History of reconstruction of right breast History of modified radical mastectomy of right breast Family History Father Cancer Leukemia Mother Diabetes mellitus Ovarian cancer Maternal Grandmother Cancer Ovarian cancer Maternal Grandfather No problems noted. Paternal Grandmother No problems noted. Paternal Grandfather No problems noted. Paternal Aunt Breast cancer Sister No problems noted. Son No problems noted. Social History Household Members: Children Household Members Other:: Divorce. Lives w/son in 2 family. 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 Sexual orientation: Straight/Heterosexual Gender identity: Female Cognitive needs: No Hearing needs: No Vision needs: Yes Review of Systems Const All systems reviewed & are unremarkable except as noted in HPI and below Physical Exam Vital Signs: BMI result Body Mass Index 33.2 Const General: cooperative, healthy appearing and no acute distress Resp Effort & Inspection: normal respiratory effort and able to speak in complete sentences Cardio Rate: regular rate Peripheral pulses: Peripheral pulses 2+ throughout GI Palpation (GI): Soft to palpation Skin Lesions: no lesions Rashes: no rashes Extrem Other: Right upper extremity: Incision sites are clean, dry, and intact. Sutures intact. No surrounding erythema or drainage. No signs of infection. Full ROM at the elbow, wrist, and hand. Numbness and tingling has improved since surgery. Assessment & Plan Assessment & Plan (1) S/P carpal tunnel release: Onset Date: ~09/07/23 Comment: Dr. Stephanie German Code(s): Z98.890 - Other specified postprocedural states (2) S/P cubital tunnel release: Onset Date: ~09/07/23 Comment: Dr. Stephanie German Code(s): Z98.890 - Other specified postprocedural states Plan Mr. Torrez is a 63-year-old male who presents in the office today 2 weeks status post right cubital and carpal tunnel release, which was performed on 09/07/[address] German. The patient reports her symptoms are returning slowly. She denies any pain or discomfort while in the office today. Sutures were removed and steri-stripes were applied. She does confirms mild symptoms at this time that has improved with surgery. We discussed the roll of occupational therapy but the patient has full painless ROM of the hand, wrist and elbow. Follow up will be PRN, or sooner if needed. Patient Instructions: Scribed by Susy Kwok certified medical assistant, for Eliza Tinajero PA-C on 09/22/2023 at 10:31 am, EST. Coding Level of Care Code Global (17827) Diagnoses S/P carpal tunnel release Z98.890 S/P cubital tunnel release Z98.890
[2023-09-22 10:41] VITALS: BMI 33.2
== END 2023-09-22 11:06 | disposition home or self-care (01) ==
PROVIDERS: PCP Internal Medicine; Visit Provider Physician Assistant
DX: G56.01 Carpal tunnel syndrome, right upper limb (principal); G56.21 Lesion of ulnar nerve, right upper limb
CPT/HCPCS: 99024

== ENCOUNTER → 2023-09-22 10:26 | Outpatient (BNVA) | payer OTHER, SELFPAY | PROVIDERS: PCP Internal Medicine; Visit Provider Physician Assistant | DX: Z98.890 Other specified postprocedural states (principal) | CPT/HCPCS: 99212 ==

== ENCOUNTER 2023-11-18 09:31 | Outpatient (REF) | payer OTHER, SELFPAY ==
[2023-11-18 11:21] LABS: Alanine Aminotransferase 17 U/L (0-31); Albumin Level 4.5 g/dL (3.5-5.0); Alkaline Phosphatase 54 U/L (39-117); Anion Gap 14 (12-20); Aspartate Amino Transferase 18 U/L (5-31); Bilirubin Total 0.5 mg/dL (0.0-1.0); Blood Urea Nitrogen 11 mg/dL (9-16); Calcium 9.4 mg/dL (8.4-10.2); Carbon Dioxide 27 mmol/L (22-29); Chloride 108 mmol/L (96-108); Estimated Glomerular Filt Rate > 60; Glucose Random 125 mg/dL (60-115); Potassium 4.3 mmol/L (3.3-5.1); Sodium 145 mmol/L (135-145); Total Protein 7.3 g/dL (6.5-8.0)
[2023-11-18 11:38] LABS: Estimated Average Glucose 140 mg/dL; Hemoglobin A1C 151.0286 umol/L; Hemoglobin A1c % 6.5 % (<6.0)
[2023-11-18 14:52] LABS: Creatinine Urine 254.33 mg/dL; Microalbum/Creatinine Ratio Ur 8.6 ug/mg cr (<30)
[2023-11-19 09:47] LABS: LDL Cholesterol Direct 86 mg/dL (<100)
== END 2023-11-18 09:32 | disposition home or self-care (01) ==
LOC: HO.HMGCLDS 09:31
PROVIDERS: PCP Internal Medicine; Visit Provider Internal Medicine
DX: R79.89 Other specified abnormal findings of blood chemistry (principal); E78.9 Disorder of lipoprotein metabolism, unspecified; E03.8 Other specified hypothyroidism; E66.9 Obesity, unspecified; E13.9 Other specified diabetes mellitus without complications; M81.0 Age-related osteoporosis without current pathological fracture
CPT/HCPCS: 36415; 80053; 82043; 82570; 83036; 83721

== ENCOUNTER 2023-11-20 08:46 | Outpatient (AMB) | payer OTHER, SELFPAY ==
--- NOTE | 2023-11-20 08:50 | A.OFFPC_ITS ---
Vital Signs 11/20/23 08:51 Height 5 ft Weight 167 lb BMI 32.6 BP 122/90 H Blood Pressure Location Lt brachial Position Sitting Pulse 79 Pulse Source Pulse Oximeter Pulse Oximetry (%) 98 Oxygen Delivery Method Room Air Intake Visit Reasons: 9m follow up Allergies No Known Allergies [No Known Allergies*] Allergy (Verified 09/22/23 10:39) Medication List - Last Reconciled 11/20/23 by Whitney Gavin MD atorvastatin 10 mg PO DAILY 90 days cholecalciferol (vitamin D3) (Vitamin D3) 2,000 units PO DAILY 90 days levothyroxine 75 mcg PO DAILY 90 days metformin 1,000 mg PO DAILY 90 days Tobacco use date assessed: 11/20/23 Dental Screening Dental Screen Date: 11/20/23 Did you have a dental visit in the last 12 months?: No Was dental information given to patient?: Patient has dentist HPI 9m follow up HPI Details Patient is a 63-year-old female came in today for her regular follow-up appointment Patient is under treatment for osteoporosis through [facility] Dr. Schaefer and is on Zolendronic acid Recent bone density from August showed score of - 3.3 Patient suffers from GERD, upon further questioning I found out that patient sleeps at 08:00 o'clock then wakes up after 2 hours and then eating until she falls asleep again around 02:00 or 03:00 Proper sleep hygiene was discussed with the patient I would recommend to eat at 18:00 and then do not eat anything until morning. She need to fix her sleep schedule Diabetes mellitus: she is on metformin 1 g daily.? Hemoglobin A1c is stable Hypothyroidism:? Patient is currently taking levothyroxine 75 mcg, TSH within normal limit Lipid Disorder: Continue atorvastatin 10 mg daily and diet-controlled.? Labs done recently reviewed BMI is elevated need to lose weight.? Colonoscopy was at age 58 Patient has appointment for follow-up in February for physical examination labs need to be repeated before that [facility] Medical History Diabetes Vitamin D deficiency Hypothyroidism Dyslipidemia Surgical History History of surgery History of colonoscopy History of reconstruction of right breast History of modified radical mastectomy of right breast Family History Father Cancer Leukemia Mother Diabetes mellitus Ovarian cancer Maternal Grandmother Cancer Ovarian cancer Maternal Grandfather No problems noted. Paternal Grandmother No problems noted. Paternal Grandfather No problems noted. Paternal Aunt Breast cancer Sister No problems noted. Son No problems noted. Social History Household Members: Children Household Members Other:: Divorce. Lives w/son in 2 family. 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 1. Little interest or pleasure in doing things: several days 2. Feeling down, depressed, or hopeless: several days 3. Trouble falling or staying asleep, or sleeping too much: more than half the days 4. Feeling tired or having little energy: more than half the days 5. Poor appetite or overeating: several days 6. Feeling bad about yourself - or that you are a failure or have let yourself or your family down: not at all 7. Trouble concentrating on things, such as reading the newspaper or watching television: not at all 8. Moving or speaking so slowly that other people could have noticed. Or the opposite - being so fidgety or restless that you have been moving around a lot more than usual: not at all 9. Thoughts that you would be better off or of hurting yourself in some way: not at all Total score: 7 Depression Screening Interpretation: Negative Depression Screening Done: Yes [id number] - PHQ-9 Billing: Yes Source: Developed by Drs. Sandeep Cruz, Ninfa Edwards, Ruddy Roberts and colleagues, with an educational charissa from [employer]. Thrive Questionnaire Date Thrive assessed: 10/22/22 AUDIT C Alcohol Use Questionnaire (AUDIT-C) 1. How often do you have a drink containing alcohol?: Never Total Score: 0 JUSTUS-7 AMB Questionnaire JUSTUS-7 Date JUSTUS - 7 assessed: 10/22/22 Source: Developed by Drs. Sandeep Cruz, Ninfa Edwards, Ruddy Roberts and colleagues, with an educational charissa from [employer]. Review of Systems Const Denies chills and Denies fever(s) ENT Denies epistaxis and Denies nasal discharge Card Denies chest pain Resp Denies chest congestion, Denies cough and Denies hemoptysis GI Denies diarrhea and Denies nausea Skin/Breast Denies rash Neuro Reports no additional complaints Psych Reports no additional complaints Endo Reports no additional complaints Physical exam (Primary Care) Vital Signs: Last Vital Signs Pulse 79 11/20/23 08:51 BP 122/90 H 11/20/23 08:51 Pulse Ox 98 11/20/23 08:51 Oxygen Delivery Method Room Air 11/20/23 08:51 BMI result Body Mass Index 32.6 Tobacco/Smoking Status: Tobacco use Status Tobacco use date assessed 11/20/23 11/20/23 08:54 Patient Tobacco Use Status Never used Tobacco 11/20/23 08:51 e-Cigarette/Vaping Use Never Used 11/20/23 08:51 Depression Screening Interpretation: Negative Thrive Assessment: Date of Thrive Assessment Date Thrive assessed 10/22/22 11/20/23 08:51 Const General: cooperative, comfortable and no acute distress Orientation/consciousness: patient oriented x3 HENMT Head: Yes normocephalic Eyes General: appearance normal, both eyes and all related structures Neck Neck: Yes supple Resp Effort & Inspection: normal respiratory effort, no cough and no stridor Cardio Rhythm: regular rhythm Heart sounds: S1 normal heart sound present and S2 normal heart sound present Skin General skin exam: turgor normal Neuro General: patient oriented x3, tone normal and moves all extremities Extrem Right lower extremity: no edema Left lower extremity: no edema Assessment and Plan Assessment & Plan (1) Diabetes 1.5, managed as type 2: Code(s): E13.9 - Other specified diabetes mellitus without complications (2) Lipid disorder: Code(s): E78.9 - Disorder of lipoprotein metabolism, unspecified (3) Other specified hypothyroidism: Code(s): E03.8 - Other specified hypothyroidism (4) Osteoporosis: Code(s): M81.0 - Age-related osteoporosis without current pathological fracture Qualifiers: Osteoporosis type: age-related Presence of current pathological fracture: unspecified Qualified Code(s): M81.0 - Age-related osteoporosis without current pathological fracture (5) Obesity (BMI 30.0-34.9): Code(s): E66.9 - Obesity, unspecified (6) Chronic GERD: Code(s): K21.9 - Gastro-esophageal reflux disease without esophagitis Plan Patient is a 63-year-old female came in today for her regular follow-up appointment Patient is under treatment for osteoporosis through [facility] Dr. Schaefer and is on Zolendronic acid Recent bone density from August showed score of - 3.3 Patient suffers from GERD, upon further questioning I found out that patient sleeps at 08:00 o'clock then wakes up after 2 hours and then eating until she falls asleep again around 02:00 or 03:00 Proper sleep hygiene was discussed with the patient I would recommend to eat at 18:00 and then do not eat anything until morning. She need to fix her sleep schedule Diabetes mellitus: she is on metformin 1 g daily.? Hemoglobin A1c is stable Hypothyroidism:? Patient is currently taking levothyroxine 75 mcg, TSH within normal limit Lipid Disorder: Continue atorvastatin 10 mg daily and diet-controlled.? Labs done recently reviewed BMI is elevated need to lose weight.? Colonoscopy was at age 58 Patient has appointment for follow-up in February for physical examination labs need to be repeated before that Medications: Refilled levothyroxine 75 mcg PO DAILY 90 days 90 tabs 1RF metformin 1,000 mg PO DAILY 90 days 90 tabs 1RF atorvastatin 10 mg PO DAILY 90 days 90 tabs 1RF cholecalciferol (vitamin D3) (Vitamin D3) 2,000 units PO DAILY 90 days 90 caps 0RF Coding Level of Care Code Est Pt Level 4 (02596) Diagnoses Diabetes 1.5, managed as type 2 E13.9 Lipid disorder E78.9 Other specified hypothyroidism E03.8 Age related osteoporosis, unspecified pathological fracture presence M81.0 Osteoporosis type: age-related Presence of current pathological fracture: unspecified Obesity (BMI 30.0-34.9) E66.9 Chronic GERD K21.9
[2023-11-20 08:51] VITALS: BP 122/90; PULSE 79; O2SAT 98; BMI 32.6
== END 2023-11-20 16:39 | disposition home or self-care (01) ==
PROVIDERS: PCP Internal Medicine; Visit Provider Internal Medicine
DX: E13.9 Other specified diabetes mellitus without complications (principal); E78.9 Disorder of lipoprotein metabolism, unspecified; E66.9 Obesity, unspecified; Z68.32 Body mass index [BMI] 32.0-32.9, adult; E03.8 Other specified hypothyroidism; M81.0 Age-related osteoporosis without current pathological fracture; K21.9 Gastro-esophageal reflux disease without esophagitis
CPT/HCPCS: 99214

== ENCOUNTER 2023-12-02 08:49 | Outpatient (AMB) | payer OTHER, SELFPAY ==
--- NOTE | 2023-12-02 08:58 | A.OFFVIS_ITS ---
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 She is doing well with no concerns. Attempting to eat a healthy diet with calcium and vitamin D and stays active with exercise. Currently not sexually active. Denies any vaginal dryness or irritation. Last pap smear; 2022. Last mammogram; 2023. Colonoscopy is UTD. Denies any family history of breast, ovarian or colon cancer. [facility] Medical History Diabetes Vitamin D deficiency Hypothyroidism Dyslipidemia Surgical History (Updated 12/02/23 @ 09:03 by ANDREINA Moreno) History of surgery on arm History of surgery History of colonoscopy History of reconstruction of right breast History of modified radical mastectomy of right breast Family History Father Cancer Leukemia Mother Diabetes mellitus Ovarian cancer Maternal Grandmother Cancer Ovarian cancer Maternal Grandfather No problems noted. Paternal Grandmother No problems noted. Paternal Grandfather No problems noted. Paternal Aunt Breast cancer Sister No problems noted. Son No problems noted. Social History Household Members: Children Household Members Other:: Divorce. Lives w/son in 2 family. 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 Sexual orientation: Straight/Heterosexual Gender identity: Female Cognitive needs: No Hearing needs: No Vision needs: Yes Female Reproductive History Menstrual Menopause type: natural Total pregnancies: 2 Full term: 1 Number of Living Children: 1 Date of last pap smear: 11/27/22 (neg pap and hpv) Date of Mammogram: 08/13/23 ([facility] 1) Date of last Bone Density Screenin09/02/23 Review of Systems Const All systems reviewed & are unremarkable except as noted in HPI and below Reports as per HPI Eyes Reports no additional complaints ENT Reports no additional complaints Card Reports no additional complaints Resp Reports no additional complaints GI Reports as per HPI and Reports no additional complaints Reports as per HPI Musc Reports no additional complaints Skin/Breast Reports as per HPI Neuro Reports no additional complaints Psych Reports no additional complaints Endo Reports no additional complaints Vicente/Lymph Reports no additional complaints Aller/Immun Reports no additional complaints Physical Exam Vital Signs: Last Vital Signs BP 96/60 12/02/23 08:59 BMI result Body Mass Index 32.4 Const General: cooperative, healthy appearing, no acute distress, well developed and alert Orientation/consciousness: patient oriented x3 HEENT Head: Yes normal to inspection Eyes General: appearance normal, both eyes and all related structures Neck Neck: Yes normal visual inspection Thyroid: Thyroid normal Chest Chest palpation & inspection: normal inspection of the chest and other (no puckering, dimpling, peau de orange, retraction, discharge, masses) Breast/axilla inspection: normal inspection of the breasts and Other (scar right breast) Breast/axilla palpation: normal palpation of the breasts Resp Effort & Inspection: normal respiratory effort GI Inspection: Yes normal to inspection and Yes scar Palpation (GI): Soft to palpation Rectal Exam - Female: deferred General: Yes bladder normal to palpation External Female Exam: normal external appearance and normal appearance of the urethra Speculum Exam - Vagina: normal appearance of the vagina, normal palpation, normal vaginal discharge and vagina atrophic Speculum Exam - Cervix: normal appearance of the cervix and normal palpation Bimanual exam- vagina & uterus: normal bimanual exam, normal palpation, uterine size normal, bladder normal to palpation, normal palpation and non-tender Bimanual Exam- Adnexa, other: no masses Skin General skin exam: no rashes or lesions noted Rashes: no rashes Neuro General: patient oriented x3 Cognition (Neuro): normal cognition Extrem General: Yes normal to inspection Psych Attitude: cooperative Thought process: Normal thought process present Assessment & Plan Assessment & Plan (1) Encounter for well woman exam with routine gynecological exam: Code(s): Z01.419 - Encounter for gynecological examination (general) (routine) without abnormal findings Plan Discussed: Current recommendations for pap smears per ASCCP guidelines. Breast awareness, periodic self breast exams and yearly mammogram. Maintain a healthy lifestyle, well balanced diet including Calcium 1,200 mg and Vitamin D 600 IU daily, and routine exercise. Contact the office with any postmenopausal bleeding. Patient verbalizes understanding and agrees to the plan of care. She was given opportunity to ask questions and all questions were answered to the best of my ability. RTO in 1 year for annual assistant speech language pathologist exam. This note is constructed using voice recognition software. While every effort has been made to ensure accuracy, podiatry assistant errors may have been included. Coding Level of Care Code Est Pt Prev Care 40-64y(35957) Diagnoses Encounter for well woman exam with routine gynecological exam Z01.419
[2023-12-02 08:59] VITALS: BP 96/60; BMI 32.4
== END 2023-12-02 09:36 | disposition home or self-care (01) ==
PROVIDERS: Visit Provider Advanced Practice Midwife
DX: Z01.419 Encounter for gynecological examination (general) (routine) without abnormal findings (principal)
CPT/HCPCS: 99396

== ENCOUNTER → 2023-12-02 08:49 | Outpatient (BNVA) | payer OTHER, SELFPAY | PROVIDERS: Visit Provider Advanced Practice Midwife | DX: Z01.419 Encounter for gynecological examination (general) (routine) without abnormal findings (principal) | CPT/HCPCS: 99396 ==

== ENCOUNTER 2024-02-26 08:15 | Outpatient (AMB) | payer OTHER, SELFPAY ==
[2024-02-26 08:18] VITALS: BP 128/76; PULSE 80; O2SAT 98; BMI 32.3
--- NOTE | 2024-02-26 08:18 | MHC.PC.OV ---
Vital Signs 02/26/24 08:18 Height 5 ft Weight 165 lb 4 oz BMI 32.3 BP 128/76 Blood Pressure Location Rt brachial Position Sitting Pulse 80 Pulse Source Pulse Oximeter Pulse Oximetry (%) 98 Oxygen Delivery Method Room Air Intake Visit Reasons: PE Allergies No Known Allergies [No Known Allergies*] Allergy (Verified 02/26/24 08:20) Medication List - Last Reconciled 02/26/24 by Whitney Gavin MD atorvastatin 10 mg PO DAILY 90 days cholecalciferol (vitamin D3) (Vitamin D3) 2,000 units PO DAILY 90 days levothyroxine 75 mcg PO DAILY 90 days metformin 1,000 mg PO DAILY 90 days Tobacco use date assessed: 02/26/24 Dental Screening Dental Screen Date: 02/26/24 Did you have a dental visit in the last 12 months?: No Did you have a dental problem in the last 6 months where you did not have access to dental care?: No Was dental information given to patient?: Patient has dentist HPI PE HPI Details Patient is 63-year-old female came in today for physical exam She is feeling depressed and anxious because 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 I have sent Lexapro 10 mg tablet Patient is to start taking half a tablet for couple of weeks and then full tablet. Any problems she will stop the medication and get back to me Bone density done recently showed T-score of -3.3 I have placed a referral to endocrinology for management Patient can not take oral medication due to dyspepsia Diabetes mellitus: she is on metformin 1 g daily.? Tolerating medication no side effects hemoglobin A1c has been stable she is due for another set of lab Hypothyroidism:? Patient is currently taking levothyroxine 75 mcg, TSH within normal limit Lipid Disorder: Continue atorvastatin 10 mg daily and diet-controlled.? BMI is elevated need to lose weight.? Mammogram up-to-date Pap smear through [facility] Colonoscopy was at age 58 Follow-up 3 months [facility] Medical History Diabetes Vitamin D deficiency Hypothyroidism Dyslipidemia Surgical History History of surgery on arm History of surgery History of colonoscopy History of reconstruction of right breast History of modified radical mastectomy of right breast Family History Father Cancer Leukemia Mother Diabetes mellitus Ovarian cancer Maternal Grandmother Cancer Ovarian cancer Maternal Grandfather No problems noted. Paternal Grandmother No problems noted. Paternal Grandfather No problems noted. Paternal Aunt Breast cancer Sister No problems noted. Son No problems noted. Social History Household Members: Children Household Members Other:: Divorce. Lives w/son in 2 family. 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 1. Little interest or pleasure in doing things: several days 2. Feeling down, depressed, or hopeless: several days 3. Trouble falling or staying asleep, or sleeping too much: several days 4. Feeling tired or having little energy: several days 5. Poor appetite or overeating: not at all 6. Feeling bad about yourself - or that you are a failure or have let yourself or your family down: not at all 7. Trouble concentrating on things, such as reading the newspaper or watching television: not at all 8. Moving or speaking so slowly that other people could have noticed. Or the opposite - being so fidgety or restless that you have been moving around a lot more than usual: not at all 9. Thoughts that you would be better off or of hurting yourself in some way: not at all Total score: 4 Depression Screening Interpretation: Negative Depression Screening Done: Yes 86079 - PHQ-9 Billing: Yes Source: Developed by Drs. Sandeep Cruz, Ninfa Edwards, Ruddy Roberts and colleagues, with an educational charissa from [id number]. Thrive Questionnaire Date Thrive assessed: 02/26/24 I am a: Patient What is your living situation today?: I have a steady place to live Within the past 12 months, did the food you bought not last and you didn't have the money to get more?: Never true Within the past 12 months, did you worry whether your food would run out before you got money to buy more?: Never true Do you have trouble paying for medicines?: No Do you have trouble getting transportation to medical appointments?: No Do you have trouble paying your heating and electricity bill?: No Do you have trouble taking care of your child, family member or friend?: No Do you have trouble with day-to-day activities such as bathing, preparing meals, shopping, managing finances, etc.?: No Are you currently unemployed and looking for a job?: No Are you interested in more education?: No Please select the resources that you would like help with: Housing/Penitentiary Currently or been in a relationship where the following occur: I choose not to answer THRIVE Score: 0 AUDIT C Alcohol Use Questionnaire (AUDIT-C) 1. How often do you have a drink containing alcohol?: 2-4 times a month 2. How many drinks containing alcohol do you have on a typical day when you are drinking?: 3 or 4 3. How often do you have six or more drinks on one occasion?: Never Total Score: 3 Score Reviewed/Action Taken: Yes JUSTUS-7 AMB Questionnaire JUSTUS-7 Date JUSTUS - 7 assessed: 02/26/24 Feeling nervous, anxious, or on edge: 1 = Several days Not being able to stop or control worryin = Several days Worrying too much about different things: 1 = Several days Trouble relaxin = Several days Being so restless that it is hard to sit still: 1 = Several days Becoming easily annoyed or irritable: 1 = Several days Feeling afraid as if something awful might happen: 1 = Several days Total JUSTUS-7 score (0-4 normal; 5-9 mild; 10-14 moderate; 15-21 severe): 7 Source: Developed by Drs. Sandeep Cruz, Ninfa Edwards, Ruddy Roberts and colleagues, with an educational charissa from [employer] JUSTUS-7 Assessment Billing JUSTUS-7 Assessment Tool: JUSTUS-7 Assessment 14345 Review of Systems Const Denies chills, Denies fever(s) and Denies headache(s) Eyes Denies blurry vision ENT Denies headache(s), Denies nasal discharge, Denies nasal obstruction, Denies odynophagia and Denies sinus pain Card Denies chest pain at rest and Denies chest pain with activity Resp Denies cough and Denies hemoptysis GI Denies diarrhea, Denies odynophagia, Denies vomiting and Denies hematemesis Reports as per HPI Musc Denies abnormal gait Skin/Breast Reports as per HPI Neuro Denies Neuro-related abnormal movements, Denies Abnormal speech present, Denies abnormal gait, Denies headache(s) and Denies Sensory deficit (Neuro) Psych Denies mood swings and Denies paranoia Endo Reports as per HPI Vicente/Lymph Reports as per HPI Aller/Immun Reports as per HPI Physical exam (Primary Care) Vital Signs: Last Vital Signs Pulse 80 02/26/24 08:18 BP 128/76 02/26/24 08:18 Pulse Ox 98 02/26/24 08:18 Oxygen Delivery Method Room Air 02/26/24 08:18 BMI result Body Mass Index 32.3 Tobacco/Smoking Status: Tobacco use Status Tobacco use date assessed 02/26/24 02/26/24 08:21 Patient Tobacco Use Status Never used Tobacco 02/26/24 08:21 e-Cigarette/Vaping Use Never Used 02/26/24 08:21 PHQ-9: PHQ-9 Score PHQ-9: Total score 4 02/26/24 08:33 Depression Screening Interpretation: Negative Thrive Assessment: Date of Thrive Assessment Date Thrive assessed 02/26/24 02/26/24 08:21 Currently or been in a relationship where the following occur: I choose not to answer Const General: cooperative, comfortable and no acute distress Orientation/consciousness: patient oriented x3 HENMT Head: Yes normocephalic and Yes atraumatic Eyes General: appearance normal, both eyes and all related structures Pupils: Equal, round and reactive pupils present EOM: EOMs intact bilaterally Neck Neck: Yes supple and No lymphadenopathy Thyroid: Thyroid normal Lymphatic: no lymphadenopathy noted Resp Effort & Inspection: normal respiratory effort and able to speak in complete sentences Auscultation: clear to auscultation bilaterally Cardio Heart sounds: S1 normal heart sound present and S2 normal heart sound present GI Palpation (GI): Soft to palpation and nontender Auscultation: normal bowel sounds General: Yes no CVA tenderness Back/Spine/Pelvis Back: no CVA tenderness Skin General skin exam: elasticity normal and turgor normal Neuro General: patient oriented x3 and gait normal Cranial nerves: Yes Equal, round and reactive pupils present Speech: No Abnormal speech present Sensory Exam: No Sensory deficit (Neuro) Coordination: tandem gait normal and Romberg test negative Extrem General: Yes normal exam except as noted and No edema Assessment and Plan Assessment & Plan (1) Encounter for general adult medical examination with abnormal findings: Code(s): Z00.01 - Encounter for general adult medical examination with abnormal findings (2) Diabetes 1.5, managed as type 2: Code(s): E13.9 - Other specified diabetes mellitus without complications (3) Osteoporosis: Code(s): M81.0 - Age-related osteoporosis without current pathological fracture Qualifiers: Osteoporosis type: age-related Presence of current pathological fracture: unspecified Qualified Code(s): M81.0 - Age-related osteoporosis without current pathological fracture (4) Lipid disorder: Code(s): E78.9 - Disorder of lipoprotein metabolism, unspecified (5) LFT elevation: Code(s): R79.89 - Other specified abnormal findings of blood chemistry (6) Depression, major, single episode, mild: Code(s): F32.0 - Major depressive disorder, single episode, mild (7) Anxiety, generalized: Code(s): F41.1 - Generalized anxiety disorder Plan Patient is 63-year-old female came in today for physical exam She is feeling depressed and anxious because 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 I have sent Lexapro 10 mg tablet Patient is to start taking half a tablet for couple of weeks and then full tablet. Any problems she will stop the medication and get back to me Bone density done recently showed T-score of -3.3 I have placed a referral to endocrinology for management Patient can not take oral medication due to dyspepsia Diabetes mellitus: she is on metformin 1 g daily.? Tolerating medication no side effects hemoglobin A1c has been stable she is due for another set of lab Hypothyroidism:? Patient is currently taking levothyroxine 75 mcg, TSH within normal limit Lipid Disorder: Continue atorvastatin 10 mg daily and diet-controlled.? BMI is elevated need to lose weight.? Mammogram up-to-date Pap smear through [facility] Colonoscopy was at age 58 Follow-up 3 months Orders: Orders Complete Blood Count Auto Diff Today E13.9 - Other specified diabetes mellitus without complications, E78.9 - Disorder of lipoprotein metabolism, unspecified, M81.0 - Age-related osteoporosis without current pathological fracture, R79.89 - Other specified abnormal findings of blood chemistry, Z00.01 - Encounter for general adult medical examination with abnormal findings Comprehensive Met. Panel Today E13.9 - Other specified diabetes mellitus without complications, E78.9 - Disorder of lipoprotein metabolism, unspecified, M81.0 - Age-related osteoporosis without current pathological fracture, R79.89 - Other specified abnormal findings of blood chemistry, Z00.01 - Encounter for general adult medical examination with abnormal findings TSH reflex Free T4 Today E13.9 - Other specified diabetes mellitus without complications, E78.9 - Disorder of lipoprotein metabolism, unspecified, M81.0 - Age-related osteoporosis without current pathological fracture, R79.89 - Other specified abnormal findings of blood chemistry, Z00.01 - Encounter for general adult medical examination with abnormal findings LDL Cholesterol Direct Today E13.9 - Other specified diabetes mellitus without complications, E78.9 - Disorder of lipoprotein metabolism, unspecified, M81.0 - Age-related osteoporosis without current pathological fracture, R79.89 - Other specified abnormal findings of blood chemistry, Z00.01 - Encounter for general adult medical examination with abnormal findings Hemoglobin A1c Today E13.9 - Other specified diabetes mellitus without complications, E78.9 - Disorder of lipoprotein metabolism, unspecified, M81.0 - Age-related osteoporosis without current pathological fracture, R79.89 - Other specified abnormal findings of blood chemistry, Z00.01 - Encounter for general adult medical examination with abnormal findings Referrals Endocrinology Referral M81.0 - Age-related osteoporosis without current pathological fracture Medications: New escitalopram oxalate (Lexapro) 10 mg PO DAILY 90 tabs 0RF Coding Level of Care Code Est Pt Level 3 (65012) Est Pt Prev Care 40-64y(07327) Diagnoses Encounter for general adult medical examination with abnormal findings Z00.01 Diabetes 1.5, managed as type 2 E13.9 Age related osteoporosis, unspecified pathological fracture presence M81.0 Osteoporosis type: age-related Presence of current pathological fracture: unspecified Lipid disorder E78.9 LFT elevation R79.89 Depression, major, single episode, mild F32.0 Anxiety, generalized F41.1 Additional Codes JUSTUS-7 Assessment Billing - JUSTUS-7 Assessment Tool: JUSTUS-7 Assessment 58563 ([id number])
== END 2024-02-26 08:49 | disposition home or self-care (01) ==
PROVIDERS: PCP Internal Medicine; Visit Provider Internal Medicine
DX: Z00.01 Encounter for general adult medical examination with abnormal findings (principal); E13.9 Other specified diabetes mellitus without complications; F32.0 Major depressive disorder, single episode, mild; M81.0 Age-related osteoporosis without current pathological fracture; E78.9 Disorder of lipoprotein metabolism, unspecified; R79.89 Other specified abnormal findings of blood chemistry; F41.1 Generalized anxiety disorder
CPT/HCPCS: 96127; 99213; 99396

== ENCOUNTER 2024-02-29 10:34 | Outpatient (REF) | payer OTHER, SELFPAY ==
[2024-02-29 13:10] LABS: MANUAL DIFF FLAG NO
[2024-02-29 13:26] LABS: Basophils Absolute Auto 0.1 X10*3/uL (0.0-0.2); Basophils Percent Auto 0.9 % (0-2); Eosinophils Absolute Auto 0.1 X10*3/uL (0.0-0.4); Eosinophils Percent Auto 1.9 % (0-4); Hematocrit 40.8 % (37.0-47.0); Hemoglobin 13.1 g/dl (12.0-16.0); Imm Gran Abs Auto 0.01 X10*3/uL (0.00-0.03); Imm Gran Pct Auto 0.2 % (0.0-0.4); Lymphocytes Absolute Auto 2.9 X10*3/uL (1.2-4.9); Lymphocytes Percent Auto 44.6 % (20-40); Mean Corpuscular HGB Conc 32.1 g/dl (31.0-35.0); Mean Corpuscular Volume 90.3 fL (80.0-98.0); Mean Platelet Volume 10.2 fL (9.4-12.3); Monocytes Absolute Auto 0.4 X10*3/uL (0.1-1.2); Monocytes Percent Auto 5.8 % (2-11); Neutrophils Percent Auto 46.6 % (45-73); Platelet Count 320 X10*3/uL (160-400); Red Blood Count 4.52 X10*6/uL (4.20-5.50); Red Cell Distribution Width 13.2 % (11.0-16.0); White Blood Count 6.4 X10*3/uL (4.8-10.8)
[2024-02-29 13:39] LABS: Estimated Average Glucose 128 mg/dL; Hemoglobin A1C 142.7699 umol/L; Hemoglobin A1c % 6.1 % (<6.0)
[2024-02-29 13:52] LABS: Alanine Aminotransferase 17 U/L (0-31); Albumin Level 4.7 g/dL (3.5-5.0); Alkaline Phosphatase 58 U/L (39-117); Anion Gap 14 (12-20); Aspartate Amino Transferase 19 U/L (5-31); Bilirubin Total 0.8 mg/dL (0.0-1.0); Blood Urea Nitrogen 12 mg/dL (9-16); Carbon Dioxide 23 mmol/L (22-29); Chloride 107 mmol/L (96-108); Estimated Glomerular Filt Rate > 60; Glucose Random 133 mg/dL (60-115); Potassium 3.9 mmol/L (3.3-5.1); Sodium 140 mmol/L (135-145); Total Protein 7.7 g/dL (6.5-8.0)
[2024-02-29 13:54] LABS: TSH reflex Free T4 2.06 uIU/mL (0.32-4.0)
[2024-03-02 01:33] LABS: LDL Cholesterol Direct 81 mg/dL (<100)
== END 2024-02-29 10:35 | disposition home or self-care (01) ==
LOC: HO.HMGCLDS 10:34
PROVIDERS: PCP Internal Medicine; Visit Provider Internal Medicine
DX: Z00.01 Encounter for general adult medical examination with abnormal findings (principal); E13.9 Other specified diabetes mellitus without complications; M81.0 Age-related osteoporosis without current pathological fracture; E78.9 Disorder of lipoprotein metabolism, unspecified; R79.89 Other specified abnormal findings of blood chemistry
CPT/HCPCS: 36415; 80053; 83036; 83721; 84443; 85025

== ENCOUNTER 2024-03-15 14:11 | Outpatient (AMB) | payer OTHER, SELFPAY ==
[2024-03-15 14:14] VITALS: BP 110/78; PULSE 84; BMI 32.6
--- NOTE | 2024-03-15 14:14 | MHC.OFFVIS ---
Vital Signs 03/15/24 14:14 Height 5 ft Weight 167 lb 1.766 oz BMI 32.6 BP 110/78 Blood Pressure Location Lt brachial Position Sitting Pulse 84 Pulse Source Pulse Oximeter Intake Visit Reasons: osteoporosis/CONFIRMED Intake Note: New patient present today for Osteoporosis office visit. Conservation Engineer Required: No Accompanied by: Self / Same As Patient Allergies No Known Allergies [No Known Allergies*] Allergy (Verified 03/15/24 14:17) HPI Comments Details: 63 YO F is seen in consultation at the request of PCP for Osteoporosis. First diagnosed in recently. No history of pathologic fracture or ONJ. Has few servings of dietary calcium per day in the form of cheese . Not Takes Calcium supplement Takes 2000 IU of Vitamin D daily. Denies ever using PPI, anticoagulant, antiepileptic or glucocorticoid medication. Does some weight bearing exercise walking 2 days per week in the form of walking . 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 UTD on dental cleanings and sees dentist every 6 months. No planned upcoming dental work or extractions. DXA dated 09/02/23: FINDINGS: LEFT FEMUR, NECK: Current: BMD 0.575 g/cm2, Z-score -2.4, T-score -3.3, osteoporosis. Prior: BMD 0.859 g/cm2. Baseline: BMD 0.790 g/cm2. LEFT FEMUR, TOTAL: Current: BMD 0.633 g/cm2, Z-score -2.4, T-score -3.0, osteoporosis, 32.5% decrease from previous, 25.4% decrease from baseline (<5% change is not significant). Prior: BMD 0.938 g/cm2. Baseline: BMD 0.848 g/cm2. AP SPINE L1-L4: Current: BMD 1.074 g/cm2, Z-score -0.2, T-score -0.9, normal, 5.7% increase from previous, 17.8% increase from baseline (<5% change is not significant). Prior: BMD 1.016 g/cm2. Baseline: BMD 0.912 g/cm2. Labs: [facility] Medical History Diabetes Vitamin D deficiency Hypothyroidism Dyslipidemia Surgical History History of surgery on arm History of surgery History of colonoscopy History of reconstruction of right breast History of modified radical mastectomy of right breast Family History Father Cancer Leukemia Mother Diabetes mellitus Ovarian cancer Maternal Grandmother Cancer Ovarian cancer Maternal Grandfather No problems noted. Paternal Grandmother No problems noted. Paternal Grandfather No problems noted. Paternal Aunt Breast cancer Sister No problems noted. Son No problems noted. Social History Household Members: Children Household Members Other:: Divorce. Lives w/son in 2 family. 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 Absence of blue sclera. Absence of kyphosis. Thyroid gland is of nl size and weighs 15 gms. There are no thyroid nodules palpated. Lungs CTA. Heart S1 S2 Reg R/R Abdominal exam benign. Muscle strength 5/5 . Examination of spine reveals absence of tenderness on palpation Assessment & Plan Assessment & Plan (1) Osteoporosis: Code(s): M81.0 - Age-related osteoporosis without current pathological fracture Category: Medical Qualifiers: Osteoporosis type: age-related Presence of current pathological fracture: unspecified Qualified Code(s): M81.0 - Age-related osteoporosis without current pathological fracture Plan: This is a 63-year-old female with a history of osteoporosis. Rule out secondary causes. Not completely sure that bone density positioning was correct considering disparity between hip and spine a tremendous decrease that occurred over year and a half to 2 year period of time questioning the validity of bone density Plan is to check a phosphorus, SPEP, urine immunofixation, 24 hour urine for calcium and creatinine. Will ensure 1200 mg of calcium and continue supplementation of vitamin D3. Would consider repeating DEXA bone density of hip and spine with VFA . If this is a valid bone density, Considering very low bone density in hip , history of rib fracture and high risk for fracture consideration could be given for use of anabolic therapy initially preceded by anti resorptive therapy. Forteo and Tymlos are contraindicated in this patient considering prior history of radiation therapy Orders: Orders Phosphorus Today M81.0 - Age-related osteoporosis without current pathological fracture Protein Electrophoresis, Serum Today M81.0 - Age-related osteoporosis without current pathological fracture Immunofixation, Random Urine Today M81.0 - Age-related osteoporosis without current pathological fracture XR DEXA axial skeleton Today M81.0 - Age-related osteoporosis without current pathological fracture Calcium, 24 Hr Ur Today M81.0 - Age-related osteoporosis without current pathological fracture Creatinine, 24 Hr Group Today M81.0 - Age-related osteoporosis without current pathological fracture Coding Level of Care Code New Pt Level 4 (22749) Diagnoses Age related osteoporosis, unspecified pathological fracture presence M81.0 Osteoporosis type: age-related Presence of current pathological fracture: unspecified
== END 2024-03-15 15:09 | disposition home or self-care (01) ==
PROVIDERS: PCP Internal Medicine; Visit Provider Internal Medicine Endocrinology, Diabetes & Metabolism
DX: M81.0 Age-related osteoporosis without current pathological fracture (principal)
CPT/HCPCS: 99204

== ENCOUNTER → 2024-03-15 14:11 | Outpatient (BNVA) | payer OTHER, SELFPAY | PROVIDERS: PCP Internal Medicine; Visit Provider Internal Medicine Endocrinology, Diabetes & Metabolism | DX: M81.0 Age-related osteoporosis without current pathological fracture (principal); Z79.01 Long term (current) use of anticoagulants; Z51.81 Encounter for therapeutic drug level monitoring | CPT/HCPCS: 99202 ==

== ENCOUNTER 2024-06-15 14:01 | Outpatient (AMB) | payer OTHER, SELFPAY ==
--- NOTE | 2024-06-15 14:09 | A.OFFVIS_ITS ---
Vital Signs 06/15/24 14:14 Height 5 ft 0.5 in Weight 162 lb 4.163 oz BMI 31.2 BP 108/68 Blood Pressure Location Rt brachial Position Sitting Pulse 84 Pulse Source Pulse Oximeter Intake Visit Reasons: osteoporosis-conf Intake Note: Patient present today for Osteoporosis follow up. Caregivers Homecare Required: No Accompanied by: Self / Same As Patient Allergies No Known Allergies [No Known Allergies*] Allergy (Verified 06/15/24 14:14) HPI Comments Details: 63 YO F is seen in consultation at the request of PCP for Osteoporosis. First diagnosed in recently. No history of pathologic fracture or ONJ. Has few servings of dietary calcium per day in the form of cheese . Not Takes Calcium supplement Takes 2000 IU of Vitamin D daily. Denies ever using PPI, anticoagulant, antiepileptic or glucocorticoid medication. Does some weight bearing exercise walking 2 days per week in the form of walking . 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 UTD on dental cleanings and sees dentist every 6 months. No planned upcoming dental work or extractions. DXA dated 09/02/23: FINDINGS: LEFT FEMUR, NECK: Current: BMD 0.575 g/cm2, Z-score -2.4, T-score -3.3, osteoporosis. Prior: BMD 0.859 g/cm2. Baseline: BMD 0.790 g/cm2. LEFT FEMUR, TOTAL: Current: BMD 0.633 g/cm2, Z-score -2.4, T-score -3.0, osteoporosis, 32.5% decrease from previous, 25.4% decrease from baseline (<5% change is not significant). Prior: BMD 0.938 g/cm2. Baseline: BMD 0.848 g/cm2. AP SPINE L1-L4: Current: BMD 1.074 g/cm2, Z-score -0.2, T-score -0.9, normal, 5.7% increase from previous, 17.8% increase from baseline (<5% change is not significant). Prior: BMD 1.016 g/cm2. Baseline: BMD 0.912 g/cm2. Labs: [facility] Medical History Diabetes Vitamin D deficiency Hypothyroidism Dyslipidemia Surgical History History of surgery on arm History of surgery History of colonoscopy History of reconstruction of right breast History of modified radical mastectomy of right breast Family History Father Cancer Leukemia Mother Diabetes mellitus Ovarian cancer Maternal Grandmother Cancer Ovarian cancer Maternal Grandfather No problems noted. Paternal Grandmother No problems noted. Paternal Grandfather No problems noted. Paternal Aunt Breast cancer Sister No problems noted. Son No problems noted. Social History Household Members: Children Household Members Other:: Divorce. Lives w/son in 2 family. 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 Sexual orientation: Straight/Heterosexual Gender identity: Female Cognitive needs: No Hearing needs: No Vision needs: Yes Physical Exam Vital Signs: Last Vital Signs Pulse 84 06/15/24 14:14 BP 108/68 06/15/24 14:14 BMI result Body Mass Index 31.2 Assessment & Plan Assessment & Plan (1) Osteoporosis: Code(s): M81.0 - Age-related osteoporosis without current pathological fracture Category: Medical Qualifiers: Osteoporosis type: age-related Presence of current pathological fracture: unspecified Qualified Code(s): M81.0 - Age-related osteoporosis without current pathological fracture Plan: This is a 63-year-old female with a history of osteoporosis. Rule out secondary causes. Not completely sure that bone density positioning was correct considering disparity between hip and spine a tremendous decrease that occurred over year and a half to 2 year period of time questioning the validity of bone density. A secondary workup was placed but patient did not go for Plan is to check a phosphorus, SPEP, urine immunofixation, 24 hour urine for calcium and creatinine. Will ensure 1200 mg of calcium and continue supplementation of vitamin D3. Would consider repeating DEXA bone density of hip and spine with VFA . If this is a valid bone density, Considering very low bone density in hip , history of rib fracture and high risk for fracture consideration could be given for use of anabolic therapy initially preceded by anti resorptive therapy. Forteo and Tymlos are contraindicated in this patient considering prior history of radiation therapy. Once patient completes secondary workup, will then return for discussion of initiation of therapy Coding Level of Care Code Est Pt Level 3 (40776) Diagnoses Age related osteoporosis, unspecified pathological fracture presence M81.0 Osteoporosis type: age-related Presence of current pathological fracture: unspecified
[2024-06-15 14:14] VITALS: BP 108/68; PULSE 84; BMI 31.2
== END 2024-06-15 14:39 | disposition home or self-care (01) ==
LOC: HO.ENCR 14:01
PROVIDERS: PCP Internal Medicine; Visit Provider Internal Medicine Endocrinology, Diabetes & Metabolism
DX: M81.0 Age-related osteoporosis without current pathological fracture (principal)
CPT/HCPCS: 99213

== ENCOUNTER → 2024-06-15 14:01 | Outpatient (BNVA) | payer OTHER, SELFPAY | PROVIDERS: PCP Internal Medicine; Visit Provider Internal Medicine Endocrinology, Diabetes & Metabolism | DX: M81.0 Age-related osteoporosis without current pathological fracture (principal) | CPT/HCPCS: 99212 ==

== ENCOUNTER 2024-06-20 10:44 | Outpatient (REF) | payer OTHER, SELFPAY ==
[2024-06-20 11:22] LABS: MANUAL DIFF FLAG NO
[2024-06-20 11:27] LABS: Basophils Absolute Auto 0.1 X10*3/uL (0.0-0.2); Basophils Percent Auto 0.9 % (0-2); Eosinophils Absolute Auto 0.1 X10*3/uL (0.0-0.4); Eosinophils Percent Auto 1.2 % (0-4); Hematocrit 39.5 % (37.0-47.0); Hemoglobin 12.7 g/dl (12.0-16.0); Imm Gran Abs Auto 0.02 X10*3/uL (0.00-0.03); Imm Gran Pct Auto 0.3 % (0.0-0.4); Lymphocytes Absolute Auto 2.6 X10*3/uL (1.2-4.9); Lymphocytes Percent Auto 39.5 % (20-40); Mean Corpuscular HGB Conc 32.2 g/dl (31.0-35.0); Mean Corpuscular Hemoglobin 28.9 pg (27.0-33.0); Mean Platelet Volume 9.5 fL (9.4-12.3); Monocytes Absolute Auto 0.3 X10*3/uL (0.1-1.2); Neutrophils Absolute Auto 3.5 x10*3/uL (2.0-8.3); Neutrophils Percent Auto 53.1 % (45-73); Platelet Count 268 X10*3/uL (160-400); Red Blood Count 4.39 X10*6/uL (4.20-5.50); Red Cell Distribution Width 12.7 % (11.0-16.0); White Blood Count 6.6 X10*3/uL (4.8-10.8)
[2024-06-20 11:46] LABS: Phosphorus 2.7 mg/dL (2.7-4.5)
[2024-06-20 11:49] LABS: Alanine Aminotransferase 21 U/L (0-31); Albumin Level 4.4 g/dL (3.5-5.0); Alkaline Phosphatase 64 U/L (39-117); Anion Gap 14 (12-20); Aspartate Amino Transferase 25 U/L (5-31); Bilirubin Total 0.5 mg/dL (0.0-1.0); Blood Urea Nitrogen 15 mg/dL (9-16); Calcium 9.8 mg/dL (8.4-10.2); Carbon Dioxide 24 mmol/L (22-29); Chloride 108 mmol/L (96-108); Estimated Glomerular Filt Rate > 60; Glucose Random 107 mg/dL (60-115); Potassium 4.2 mmol/L (3.3-5.1); Sodium 142 mmol/L (135-145); Total Protein 7.3 g/dL (6.5-8.0)
[2024-06-20 12:04] LABS: Vitamin D 25-OH Total 66.1 ng/mL (>30)
[2024-06-20 12:08] LABS: TSH reflex Free T4 3.13 uIU/mL (0.32-4.0)
[2024-06-21 10:43] LABS: CA 27.29 20 U/mL (<38)
[2024-06-23 21:58] LABS: Prot Elec - Albumin 4.2 g/dL (3.8-4.8); Prot Elec - Alpha1 0.2 g/dL (0.2-0.3); Prot Elec - Alpha2 0.6 g/dL (0.5-0.9); Prot Elec - Beta 1 0.4 g/dL (0.4-0.6); Prot Elec - Beta 2 0.4 g/dL (0.2-0.5); Prot Elec - Total Protein 6.9 g/dL (6.1-8.1)
== END 2024-06-20 10:45 | disposition home or self-care (01) ==
LOC: HO.LAB 10:44
PROVIDERS: PCP Internal Medicine; Referring Provider Internal Medicine Medical Oncology; Visit Provider Internal Medicine Endocrinology, Diabetes & Metabolism
DX: C50.919 Malignant neoplasm of unspecified site of unspecified female breast (principal); E03.8 Other specified hypothyroidism; M81.0 Age-related osteoporosis without current pathological fracture
CPT/HCPCS: 36415; 80053; 82306; 84100; 84165; 84443; 85025; 86300; 86335

== ENCOUNTER 2024-06-22 11:03 | Outpatient (REF) | payer OTHER, SELFPAY ==
[2024-06-22 12:55] LABS: Creatinine, 24Hr Urine 1.5 G/Day (1.0-2.0); Total Volume 24 Hour Urine 1350 mL
[2024-06-24 14:28] LABS: Calcium, 24 Hr Urine 135 mg/24 h; Calcium/Creatinine Ratio 94 mg/g creat (30-275); Creatinine 24Hr Urine 1.43 g/24 h (0.50-2.15)
== END 2024-06-22 11:04 | disposition home or self-care (01) ==
LOC: HO.LNP 11:03
PROVIDERS: Visit Provider Internal Medicine Endocrinology, Diabetes & Metabolism
DX: M81.0 Age-related osteoporosis without current pathological fracture (principal)
CPT/HCPCS: 82340; 82570

== ENCOUNTER 2024-08-18 13:38 | Outpatient (REF) | payer OTHER, SELFPAY | END 2024-08-18 13:39 | disposition home or self-care (01) | LOC: HO.MAMMO 13:38 | PROVIDERS: PCP Internal Medicine; Visit Provider Internal Medicine | DX: Z12.31 Encounter for screening mammogram for malignant neoplasm of breast (principal) | CPT/HCPCS: 77063; 77067 ==

== ENCOUNTER → 2024-08-18 15:15 | Outpatient (BNV) | payer OTHER, SELFPAY | PROVIDERS: PCP Internal Medicine; Visit Provider Internal Medicine | DX: Z12.31 Encounter for screening mammogram for malignant neoplasm of breast (principal) | CPT/HCPCS: 77063; 77067 ==

== ENCOUNTER 2025-01-09 07:31 | Outpatient (AMB) | payer OTHER, SELFPAY ==
[2025-01-09 07:36] VITALS: BP 128/72; PULSE 67; O2SAT 96; BMI 38.4
--- NOTE | 2025-01-09 07:36 | MHC.OFFVIS ---
Vital Signs 01/09/25 07:36 Height 5 ft 1 in Weight 203 lb 0.732 oz BMI 38.4 BP 128/72 Blood Pressure Location Lt brachial Position Sitting Pulse 67 Pulse Source Pulse Oximeter Pulse Oximetry (%) 96 Oxygen Delivery Method Room Air Intake Visit Reasons: Osteoporosis Intake Note: New patient present today for Osteoporosis. Medical Health Researcher Required: No Accompanied by: Self / Same As Patient Allergies No Known Allergies [No Known Allergies*] Allergy (Verified 01/09/25 07:39) Medication List - Last Reconciled 01/09/25 by Arielle Nobles MD atorvastatin 10 mg PO DAILY 90 days cholecalciferol (vitamin D3) (Vitamin D3) 2,000 units PO DAILY 90 days escitalopram oxalate (Lexapro) 10 mg PO DAILY levothyroxine 75 mcg PO DAILY 90 days metformin 1,000 mg PO DAILY 90 days HPI Comments Details: 64 YO F is seen in consultation at the request of PCP for Osteoporosis. First diagnosed in Aug 2023 on Dexa scan which showed Dexa scan Left fem neck -3.3 Left fem total -3 decrease of 25.4 % at hip since 2020 L spine -0.9 5.7% increase since 2020 Has history of right breast cancer diagnosed 1989, s/p rt mastectomy and reconstruction 1998 plus RT and chemo S/p tamoxifen 5 years S/p 7 cycles of Zometa for bone health. last given Aug 2023 Fracture history : rib fracture 2020 after picking up a heavy water melon No other fractures Calcium :Milk not much . Does some almond milk. Has few servings of dietary calcium per day in the form of cheese . Not Takes Calcium supplement Vitamin D: Takes 2000 IU of Vitamin D daily. Denies ever using PPI, anticoagulant, antiepileptic or glucocorticoid medication. Does some weight bearing exercise walking 2 days per week in the form of walking . 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 Hasnt seen dentisit for a while doesnt go regulalry , has some fake teeth . Denies history of heart attack or stroke Physical exam General: sitting comfortably in no acute distress HEENT: normocephalic/atraumatic, Neck: supple, symmetrical Cardiac: normal heart sounds Pulm: normal breath sounds B/L, no added breath sounds Abd: not distended, no tenderness Extremities: no edema, no signs of myxedema Laboratory Tests 06/20/24 06/22/24 11/14/24 11:21 07:45 10:56 Sodium 142 141 Potassium 4.5 Creatinine 0.80 0.77 Estimated GFR > 60 > 60 Calcium 9.8 10.1 Albumin (PEP) 4.2 25-OH Vitamin D Total 66.1 TSH 3.13 Ur 24 Hour Volume 1350 Ur Creatinine mg/dL 110.50 Ur Creatinine 24 Hour 1.5 Ur Calcium 24 Hr 135 Calcium/Creat 24 Hr 94 DXA dated 09/02/23: FINDINGS: LEFT FEMUR, NECK: Current: BMD 0.575 g/cm2, Z-score -2.4, T-score -3.3, osteoporosis. Prior: BMD 0.859 g/cm2. Baseline: BMD 0.790 g/cm2. LEFT FEMUR, TOTAL: Current: BMD 0.633 g/cm2, Z-score -2.4, T-score -3.0, osteoporosis, 32.5% decrease from previous, 25.4% decrease from baseline (<5% change is not significant). Prior: BMD 0.938 g/cm2. Baseline: BMD 0.848 g/cm2. AP SPINE L1-L4: Current: BMD 1.074 g/cm2, Z-score -0.2, T-score -0.9, normal, 5.7% increase from previous, 17.8% increase from baseline (<5% change is not significant). Prior: BMD 1.016 g/cm2. Baseline: BMD 0.912 g/cm2. Labs: [facility] Medical History Diabetes Vitamin D deficiency Hypothyroidism Dyslipidemia Surgical History History of surgery on arm History of surgery History of colonoscopy History of reconstruction of right breast History of modified radical mastectomy of right breast Family History Father Cancer Leukemia Mother Diabetes mellitus Ovarian cancer Maternal Grandmother Cancer Ovarian cancer Maternal Grandfather No problems noted. Paternal Grandmother No problems noted. Paternal Grandfather No problems noted. Paternal Aunt Breast cancer Sister No problems noted. Son No problems noted. Social History Household Members: Children Household Members Other:: Divorce. Lives w/son in 2 family. 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 Sexual orientation: Straight/Heterosexual Gender identity: Female Cognitive needs: No Hearing needs: No Vision needs: Yes Physical Exam Vital Signs: Last Vital Signs Pulse 67 01/09/25 07:36 BP 128/72 01/09/25 07:36 Pulse Ox 96 01/09/25 07:36 Oxygen Delivery Method Room Air 01/09/25 07:36 BMI result Body Mass Index 38.4 Assessment & Plan Assessment & Plan (1) Osteoporosis: Code(s): M81.0 - Age-related osteoporosis without current pathological fracture Category: Medical Qualifiers: Osteoporosis type: age-related Presence of current pathological fracture: unspecified Qualified Code(s): M81.0 - Age-related osteoporosis without current pathological fracture Plan: 64-year-old female diagnosed with osteoporosis on DEXA scan in August 2023 which showed Left fem neck -3.3 Left fem total -3 decrease of 25.4 % at hip since 2020 L spine -0.9 5.7% increase since 2020. She has had a history of rib fracture back in 2020. No other fractures. Risk factors for osteoporosis include early menopause at age 32 due to history of radiation therapy for breast cancer, age,. She has been on Zometa annually for 7 cycles up until August 2023. This was being managed by Oncology previously. She had secondary workup done in June 2024 which was unremarkable. She saw Dr. Nassar back in June 2024 and there was some concern whether her most recent bone density in August 2023 is accurate because she has had a drop of 25% at her bone density of the hip, while her bone density in the spine remained stable. She now has severe osteoporosis of the hip. She has actually gained 20 lb compared to her bone density in 2021, instead of losing it sometimes decrease in weight can cause the decrease in bone density but that is not the case with her. Dr. Nassar had ordered a repeat bone density scan considering this large disparity between the hip and spine, however her insurance would not cover it. She is on good amounts of vitamin-D 2000 units daily, vitamin-D level was good from June 2024. However she does not have much of a nutritional intake of calcium, I asked her to incorporate more calcium in her diet. Seems like she does not do much of dairy products but I told her to do green leafy vegetables plus almond milk. Considering very low bone density in hip , history of rib fracture and high risk for fracture consideration could be given for use of anabolic therapy initially preceded by anti resorptive therapy or do Prolia to start with. Forteo and Tymlos are contraindicated in this patient considering prior history of radiation therapy plus these do not have much data on the hip fracture reduction anyway. Today I briefly discussed with her regarding initiating Evenity. . She has no history of heart attack or stroke. However she is not up to date with her dental cleanings, I have asked her to see her dentist. Also given such a drop in the hip bone density, I would like to check her PTH levels, her calcium has also been on the high normal side. I would also like to check bone resorption markers prior to initiating treatment since we are doubtful about the accuracy of the last bone density scan. Plan: -ordered CTX, BSAP, PTH, calcium, albumin, ionized calcium, creatinine and updated vitamin-D levels -follow up in 5 weeks to discuss results and consider treatment initiation with Romosuzumab -continue vitamin-D 2000 units daily -incorporate at least 1000 mg of calcium in diet -see the dentist -continue weight-bearing exercise/walking Plan I spent 30 minutes in reviewing the record, seeing the patient and documenting in the medical record. Orders: Orders Calcium, Ionized Today M81.0 - Age-related osteoporosis without current pathological fracture Alkaline Phosphatase Bone Today M81.0 - Age-related osteoporosis without current pathological fracture Albumin Level 01/12/25 M81.0 - Age-related osteoporosis without current pathological fracture Calcium 01/12/25 M81.0 - Age-related osteoporosis without current pathological fracture Calcium, Ionized 01/12/25 M81.0 - Age-related osteoporosis without current pathological fracture Albumin Level Today M81.0 - Age-related osteoporosis without current pathological fracture Calcium Today M81.0 - Age-related osteoporosis without current pathological fracture Collagen Type I C-Telopeptide Today M81.0 - Age-related osteoporosis without current pathological fracture Parathyroid Hormone Intact Today M81.0 - Age-related osteoporosis without current pathological fracture Vitamin D 25-OH Total Today M81.0 - Age-related osteoporosis without current pathological fracture Creatinine Today M81.0 - Age-related osteoporosis without current pathological fracture Parathyroid Hormone Intact 01/12/25 M81.0 - Age-related osteoporosis without current pathological fracture Patient Instructions: Please do fasting AM blood work at [facility] We will give you a call if you need to repeat the blood work at [facility] at [address] [place] [address]. Papers given for this just in case Follow up in 5 weeks to discuss results Continue vitamin D 2000 units daily Incorporate more calcium in your diet but taking in calcium rich foods such as almond milk, spinach, kale, cheese, tofu See your dentist Coding Level of Care Code Est Pt Level 4 (76272) Diagnoses Age related osteoporosis, unspecified pathological fracture presence M81.0 Osteoporosis type: age-related Presence of current pathological fracture: unspecified Time Spent (min) 30
== END 2025-01-09 08:29 | disposition home or self-care (01) ==
LOC: HO.ENCR 07:33
PROVIDERS: PCP Internal Medicine; Visit Provider Student in an Organized Health Care Education/Training Program
DX: M81.0 Age-related osteoporosis without current pathological fracture (principal)
CPT/HCPCS: 99214

== ENCOUNTER → 2025-01-09 07:31 | Outpatient (BNVA) | payer OTHER, SELFPAY | PROVIDERS: PCP Internal Medicine; Visit Provider Student in an Organized Health Care Education/Training Program | DX: M81.0 Age-related osteoporosis without current pathological fracture (principal) | CPT/HCPCS: 99212 ==

== ENCOUNTER 2025-01-10 09:15 | Outpatient (REF) | payer OTHER, SELFPAY ==
[2025-01-10 09:56] LABS: Albumin Level 4.6 g/dL (3.5-5.0); Calcium 10.5 mg/dL (8.4-10.2); Estimated Glomerular Filt Rate > 60
[2025-01-10 10:13] LABS: Vitamin D 25-OH Total 55.9 ng/mL (>30)
[2025-01-10 10:47] LABS: Parathyroid Hormone Intact 44.3 pg/mL (8.7-77.1)
[2025-01-13 17:43] LABS: Alkaline Phosphatase Bone 9.2 mcg/L (5.6-29.0)
[2025-01-15 14:43] LABS: Collagen Type I C-Telopeptide 185 pg/mL (see note)
[2025-01-16 11:19] LABS: Calcium, Ionized 5.6 mg/dL (4.7-5.5)
== END 2025-01-10 09:16 | disposition home or self-care (01) ==
LOC: HO.LAB 09:15
PROVIDERS: PCP Internal Medicine; Referring Provider Internal Medicine Medical Oncology; Visit Provider Student in an Organized Health Care Education/Training Program
DX: M81.0 Age-related osteoporosis without current pathological fracture (principal)
CPT/HCPCS: 36415; 82040; 82306; 82310; 82330; 82523; 82565; 83970; 84075

== ENCOUNTER 2025-02-13 07:35 | Outpatient (AMB) | payer OTHER, SELFPAY ==
--- OUTSIDE RECORDS SUMMARY | 2025-02-13 07:38 | XMS_ITS | Patient Health Record ---
Author Organization [facility] Address [address] [place] [address] Care Team Providers Care Mds Nurse Name Role Phone DIA JACINTA Primary Care Provider Sandeep Salgado [phone] Reason For Referral No Information Medications Medication SIG (Take, Route, Frequency, Duration) Notes Start Date End Date Status Levothyroxine Sodium 25 MCG TAKE 1 TABLE T THREE TIMES A DAY NEEDED WITH FOOD Oral for 30 Active Colyte w Flavor Packs 240 GM as directed Orally as directed for 1 day(s) 01/03/2015 Active Problems Problem Type SNOMED Code ICD Code Onset Dates Problem Status W/U Status Risk Notes Problem Constipation (62169754) Constipation (564.00) Active confirmed Problem Colon cancer screening (480714343) Colon cancer screening (V76.51) Active confirmed Plan Of Treatment Future Test Test Name Order Date COLONOSCOPY 01/02/2015 Insurance Providers Payer Name Payer Address Payer Phone Subscriber Number Group Number Insured Name Patient Relationship to Insured Coverage Start Date Coverage End Date [facility] [address] [address] [place], [place] [id number] DARI JACOBSEN I Self - patient is the insured Medical (General) History Medical History History ICD Code Denies AK,DM,CVA,Lung disease,renal dise ase Right-sided breast cancer --mastectomy, then chemo and XRT--followed by Dr. Schaefer Hypothyroidism Had a neg ETT at [facility] [place] in 2014 Surgical History Surgery Date(Month/Year) right mastectomy/reconstruction
[2025-02-13 07:46] VITALS: BP 120/70; PULSE 74; O2SAT 98; BMI 29.9
--- NOTE | 2025-02-13 07:46 | A.OFFVIS_ITS ---
Vital Signs 3 02/13/25 07:46 Height 5 ft 1 in Weight 158 lb 4.67 oz BMI 29.9 BP 120/70 Blood Pressure Location Lt brachial Position Sitting Pulse 74 Pulse Source Pulse Oximeter Pulse Oximetry (%) 98 Oxygen Delivery Method Room Air Intake Visit Reasons: Osteoporosis Intake Note: Patient present today for Osteoporosis office visit. Operations Representative Required: No Accompanied by: Self / Same As Patient Allergies No Known Allergies (No Known Allergies*) Allergy (Verified 02/13/25 07:49) Medication List - Last Reconciled 02/13/25 by Arielle Nobles MD atorvastatin 10 mg PO DAILY 90 days cholecalciferol (vitamin D3) (Vitamin D3) 2,000 units PO DAILY 90 days escitalopram oxalate (Lexapro) 10 mg PO DAILY levothyroxine 75 mcg PO DAILY 90 days metformin 1,000 mg PO DAILY 90 days HPI Comments Details: 64 YO F is seen for follow up for Osteoporosis. HPI First diagnosed in Aug 2023 on Dexa scan which showed Dexa scan Left fem neck -3.3 Left fem total -3 decrease of 25.4 % at hip since 2020 L spine -0.9 5.7% increase since 2020 Has history of right breast cancer diagnosed 1989, s/p rt mastectomy and reconstruction 1998 plus RT and chemo S/p tamoxifen 5 years S/p 7 cycles of Zometa for bone health. last given Aug 2023 Fracture history : rib fracture 2020 after picking up a heavy water melon No other fractures Calcium :Milk not much . Does some almond milk. Has few servings of dietary calcium per day in the form of cheese . Not Takes Calcium supplement Vitamin D: Takes 2000 IU of Vitamin D daily. Denies ever using PPI, anticoagulant, antiepileptic or glucocorticoid medication. Does some weight bearing exercise walking 2 days per week in the form of walking . Height loss: no DEAL ARCHITECT history: menarche at age 15 menoapuase at age 32- had RT periods stopped after that Denies history of Kidney stones: Denies family history of Osteoporosis or hip fracture. Hasnt seen dentisit for a while doesnt go regulalry , has some fake teeth . Denies history of heart attack or stroke Interval history 01/10/2025: Blood work showed elevated total calcium of 10.5, with albumin of 4.6, corrected calcium would be on the higher side of normal at 10.1, ionized calcium elevated at 5.6, normal kidney function with a EGFR greater than 60, 25 vitamin- D level of 55.9, PTH inappropriately normal at 44.3, bone specific alkaline phosphatase on the lower side at 9.2, with CTX also not elevated at 185. Blood work repeated at [facility] 02/06/2025 showed calcium of 9.5 with albumin of 4.2, corrected calcium would be 9.3, ionized calcium normal at 5.2, PTH of 56. Vitamin-D: 2000 units daily Calcium intake: milk now daily mostly , cheese daily , some ice cream here and there Dentist:hasnt seen yet Physical exam General: sitting comfortably in no acute distress HEENT: normocephalic/atraumatic, Neck: supple, symmetrical Cardiac: normal heart sounds Pulm: normal breath sounds B/L, no added breath sounds Abd: not distended, no tenderness Extremities: no edema, no signs of myxedema Laboratory Tests 06/20/24 06/22/24 11/14/24 11:21 07:45 10:56 Sodium 142 141 Potassium 4.5 Creatinine 0.80 0.77 Estimated GFR > 60 > 60 Calcium 9.8 10.1 Albumin (PEP) 4.2 25-OH Vitamin D Total 66.1 TSH 3.13 Ur 24 Hour Volume 1350 Ur Creatinine mg/dL 110.50 Ur Creatinine 24 Hour 1.5 Ur Calcium 24 Hr 135 Calcium/Creat 24 Hr 94 Laboratory Tests 01/10/25 09:30 Creatinine 0.85 Estimated GFR > 60 Calcium 10.5 H Ionized Calcium 5.6 H Alk Phos Bone Specific 9.2 Albumin 4.6 Collgn I C-Telopeptide 185 25-OH Vitamin D Total 55.9 PTH Intact 44.3 DXA dated 09/02/23: FINDINGS: LEFT FEMUR, NECK: Current: BMD 0.575 g/cm2, Z-score -2.4, T-score -3.3, osteoporosis. Prior: BMD 0.859 g/cm2. Baseline: BMD 0.790 g/cm2. LEFT FEMUR, TOTAL: Current: BMD 0.633 g/cm2, Z-score -2.4, T-score -3.0, osteoporosis, 32.5% decrease from previous, 25.4% decrease from baseline (<5% change is not significant). Prior: BMD 0.938 g/cm2. Baseline: BMD 0.848 g/cm2. AP SPINE L1-L4: Current: BMD 1.074 g/cm2, Z-score -0.2, T-score -0.9, normal, 5.7% increase from previous, 17.8% increase from baseline (<5% change is not significant). Prior: BMD 1.016 g/cm2. Baseline: BMD 0.912 g/cm2. Labs: [facility] Medical History Diabetes Vitamin D deficiency Hypothyroidism Dyslipidemia Surgical History History of surgery on arm History of surgery History of colonoscopy History of reconstruction of right breast History of modified radical mastectomy of right breast Family History Father Cancer Leukemia Mother Diabetes mellitus Ovarian cancer Maternal Grandmother Cancer Ovarian cancer Maternal Grandfather No problems noted. Paternal Grandmother No problems noted. Paternal Grandfather No problems noted. Paternal Aunt Breast cancer Sister No problems noted. Son No problems noted. Social History Household Members: Children Household Members Other:: Divorce. Lives w/son in 2 family. 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 Sexual orientation: Straight/Heterosexual Gender identity: Female Cognitive needs: No Hearing needs: No Vision needs: Yes Physical Exam Vital Signs: Last Vital Signs Pulse 74 02/13/25 07:46 BP 120/70 02/13/25 07:46 Pulse Ox 98 02/13/25 07:46 Oxygen Delivery Method Room Air 02/13/25 07:46 BMI result Body Mass Index 29.9 Assessment & Plan Assessment & Plan (1) Osteoporosis: Code(s): M81.0 - Age-related osteoporosis without current pathological fracture Category: Medical Qualifiers: Osteoporosis type: age-related Presence of current pathological fracture: unspecified Qualified Code(s): M81.0 - Age-related osteoporosis without current pathological fracture Plan: 64-year-old female diagnosed with osteoporosis on DEXA scan in August 2023 which showed Left fem neck -3.3 Left fem total -3 decrease of 25.4 % at hip since 2020 L spine -0.9 5.7% increase since 2020. She has had a history of rib fracture back in 2020. No other fractures. Risk factors for osteoporosis include early menopause at age 32 due to history of radiation therapy for breast cancer, age,. She has been on Zometa annually for 7 cycles up until August 2023. This was being managed by Oncology previously. She had secondary workup done in June 2024 which was unremarkable. She saw Dr. Nassar back in June 2024 and there was some concern whether her most recent bone density in August 2023 is accurate because she has had a drop of 25% at her bone density of the hip, while her bone density in the spine remained stable. She now has severe osteoporosis of the hip. She has actually gained 20 lb compared to her bone density in 2020, instead of losing it sometimes decrease in weight can cause the decrease in bone density but that is not the case with her. Dr. Nassar had ordered a repeat bone density scan considering this large disparity between the hip and spine, however her insurance would not cover it. She is on good amounts of vitamin-D 2000 units daily, vitamin-D level was good from June 2024. However she did not have much of a nutritional intake of calcium, I asked her to incorporate more calcium in her diet. She has been doing so since January 2025. Considering very low bone density in hip , history of rib fracture and high risk for fracture consideration could be given for use of anabolic therapy initially preceded by anti resorptive therapy or do Prolia to start with. Forteo and Tymlos are contraindicated in this patient considering prior history of radiation therapy plus these do not have much data on the hip fracture reduction anyway. I briefly discussed with her regarding initiating Evenity. . She has no history of heart attack or stroke. However she is not up to date with her dental cleanings, I have asked her to see her dentist. She has still not done this, again reiterated to her importance of seeing the dentist. Also given such a drop in the hip bone density, and in January I also noticed that her her calcium has also been on the high normal side. I decided to check again for for some secondary workup. Interestingly 01/10/2025: Blood work showed elevated total calcium of 10.5, with albumin of 4.6, corrected calcium would be on the higher side of normal at 10.1, ionized calcium elevated at 5.6, normal kidney function with a EGFR greater than 60, 25 vitamin-D level of 55.9, PTH inappropriately normal at 44.3, bone specific alkaline phosphatase on the lower side at 9.2, with CTX also not elevated at 185. Blood work repeated at [facility] 02/06/2025 showed calcium of 9.5 with albumin of 4.2, corrected calcium would be 9.3, ionized calcium normal at 5.2, PTH of 56. She is not on HCTZ, but I am still suspecting whether she has some underlying parathyroid issue that is contributing to cortical bone loss. The PTH being inappropriately normal is indicative of that possibly. But given her history of cancer I would also like to check a PTH RP level. At this point I have asked her to do a kidney ultrasound to look for kidney stones. I have also asked her to do a 24 hour urine collection again now that she has improved nutritional intake of calcium. I would like to ensure for his that she does not have underlying primary hyperparathyroidism. Before committing her to treatment. Plus her bone resorption markers interestingly are not elevated, again supporting that she would not be a good candidate for antiresorptive therapy, instead I would put her on Evenity for treatment. Plan: -ordered 24 hour urine collection, repeat blood work -ordered kidney ultrasound -follow up in 5 weeks to discuss results and consider treatment initiation with Romosuzumab -continue vitamin-D 2000 units daily -incorporate at least 1000 mg of calcium in diet -see the dentist -continue weight-bearing exercise/walking (2) Hypercalcemia: Code(s): E83.52 - Hypercalcemia Category: Medical Plan: See above Plan I spent 30 minutes in reviewing the record, seeing the patient and documenting in the medical record. Orders: Orders 2 Calcium Today M81.0 - Age-related osteoporosis without current pathological fracture Vitamin D 1,25 dihydroxy Today M81.0 - Age-related osteoporosis without current pathological fracture Parathyroid Hormone Intact Today M81.0 - Age-related osteoporosis without current pathological fracture Calcium, 24 Hr Ur Today M81.0 - Age-related osteoporosis without current pathological fracture Sodium, 24Hr Urine Group Today M81.0 - Age-related osteoporosis without current pathological fracture Vitamin D 25-OH Total Today M81.0 - Age-related osteoporosis without current pathological fracture Vitamin D 25-OH (D2 and D3) Today M81.0 - Age-related osteoporosis without current pathological fracture Parathyroid Hormone Related Pr Today M81.0 - Age-related osteoporosis without current pathological fracture US renal BI Today E83.52 - Hypercalcemia, M81.0 - Age-related osteoporosis without current pathological fracture Albumin Level Today M81.0 - Age-related osteoporosis without current pathological fracture Calcium, Ionized Today M81.0 - Age-related osteoporosis without current pathological fracture Phosphorus Today M81.0 - Age-related osteoporosis without current pathological fracture Creatinine Today M81.0 - Age-related osteoporosis without current pathological fracture Creatinine, 24 Hr Group Today M81.0 - Age-related osteoporosis without current pathological fracture Patient Instructions: Do 24 hr urine collection and same day as you hand in the urine do blood work 24 hr urine collection instructions You have been asked to collect your urine for 24 hours to assess for calcium excretion. You must choose a 24 hour period of time when you will be home. The morning of the first day, DISCARD the FIRST morning void and then note the time. You will collect every single void from then on for 24 hours. For example, if you wake up at 6am and urinate, flush down that void. You will then collect every drop of urine all day and all night through 6am the following day. You will urinate one last time at 6am for the collection. The jug of urine must be kept in the refrigerator until you bring it to the lab. Do kidney ultrasound someone will call you to schedule this Continue vitamin D 2000 units daily Continue to incorporate 2-3 servings of calcium rich foods daily such as milk, yogurt , cheese Please see the dentist Coding Level of Care Code Est Pt Level 4 (49474) Diagnoses Age related osteoporosis, unspecified pathological fracture presence M81.0 Osteoporosis type: age-related Presence of current pathological fracture: unspecified Hypercalcemia E83.52 Time Spent (min) 30
== END 2025-02-13 08:06 | disposition home or self-care (01) ==
LOC: HO.ENCR 07:36
PROVIDERS: PCP Internal Medicine; Visit Provider Student in an Organized Health Care Education/Training Program
DX: M81.0 Age-related osteoporosis without current pathological fracture (principal); E83.52 Hypercalcemia
CPT/HCPCS: 99214

== ENCOUNTER → 2025-02-13 07:35 | Outpatient (BNVA) | payer OTHER, SELFPAY | PROVIDERS: PCP Internal Medicine; Visit Provider Student in an Organized Health Care Education/Training Program | DX: M81.0 Age-related osteoporosis without current pathological fracture (principal); E83.52 Hypercalcemia | CPT/HCPCS: 99212 ==

== ENCOUNTER 2025-02-15 08:24 | Outpatient (AMB) | payer OTHER, SELFPAY ==
--- NOTE | 2025-02-15 08:26 | A.OFFPC_ITS ---
Vital Signs 02/15/25 08:28 Height 5 ft 1 in Weight 159 lb 2 oz BMI 30.1 BP 122/78 Blood Pressure Location Lt brachial Position Sitting Pulse 73 Pulse Source Pulse Oximeter Temp 98.3 F Temp Source Oral Pulse Oximetry (%) 97 Oxygen Delivery Method Room Air Intake Visit Reasons: Followup meds Wool Hanker Required: No Is last menstrual period known: No Post menopausal: Yes Patient : No Allergies No Known Allergies (No Known Allergies*) Allergy (Verified 02/15/25 08:31) Medication List - Last Reconciled 02/15/25 by Whitney Gavin MD atorvastatin 10 mg PO DAILY 90 days cholecalciferol (vitamin D3) (Vitamin D3) 2,000 units PO DAILY 90 days levothyroxine 75 mcg PO DAILY 90 days metformin 1,000 mg PO DAILY 90 days Tobacco use date assessed: 02/15/25 Dental Screening Dental Screen Date: 02/26/24 Did you have a dental visit in the last 12 months?: No Did you have a dental problem in the last 6 months where you did not have access to dental care?: No Was dental information given to patient?: Patient has dentist HPI Followup meds HPI Details This is a longitudinal care/follow-up appointment - The patient is a 64-year-old female wi th a history of diabetes, hypothyroidism, lipid disorder, obesity, presenting with fatigue and disrupted sleep patterns. - Fatigue noted with a lack of energy, p ossibly due to sleep disruptions. - Sleep disturbances characterized as in termittent waking during the night, only achieving sleep for two to three hours at a time before waking and then attempting to return to sleep. - The patient reports watching TV upon w aking at night, experiencing trouble falling back asleep. - The onset and progression over unspeci fied duration, associated with work- related stress and responsibilities, potentially contributing to a feeling of being overworked. - The patient reports increased anxiety due to perceived increased responsibilities, which may contribute to disrupted sleep. 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 - Experiences work-related stress due to extensive working hours and responsibilities, which may impact sleep and cause fatigue Diagnostic Results: - Labs: - Blood test conducted in November showed no anemia - Kidney function and electrolytes repor lorenza as normal - Liver enzymes reported as normal - Vitamin D levels reported as sufficien t - No vitamin B12 evaluation recorded Problem List - Fatigue - Sleep disturbances - Anxiety - Hyperlipidemia - Hypothyroidism - Type 2 Diabetes Mellitus - over worked - obesity Patient Instructions - Implement strategies to improve sleep hygiene and ensure adequate rest. - Consider lifestyle changes to manage w ork-related stress and responsibilities. - Try prescribed mirtazapine 15 mg to as sist with sleep disturbances, starting with half a tablet. - Continue current medications and ensur e no missed doses. - Follow up for blood tests and possible vitamin B12 levels during next visit. - follow-up in March with physical exam appointment Review of Systems - General: No fever no chills - Neurological: No headaches no dizziness - Ear nose throat: No sore throat no hearing difficulty no ear pain - Cardiovascular: No syncope, no chest pain, no palpitations - Gastrointestinal: No nausea vomiting or diarrhea - Endocrine: No polyuria polydipsia no heat intolerance - Genitourinary: No dysuria , no blood in urine Physical Exam - General: No acute distress - HEENT: No acute findings - Neck: Supple - Respiratory system: Able to talk in f ull sentences, no audible wheeze - Cardiovascular: S1-S2 regular in rate and rhythm - Gastrointestinal: No pain - Extremities: No new findings - DIRECTOR OF CORPORATE RESPONSIBILITY: Alert awake oriented x3 motor se nsory intact - Skin: Normal turgor [facility] Medical History Hypercalcemia Diabetes Vitamin D deficiency Hypothyroidism Dyslipidemia Surgical History History of surgery on arm History of surgery History of colonoscopy History of reconstruction of right breast History of modified radical mastectomy of right breast Family History Father Cancer Leukemia Mother Diabetes mellitus Ovarian cancer Maternal Grandmother Cancer Ovarian cancer Maternal Grandfather No problems noted. Paternal Grandmother No problems noted. Paternal Grandfather No problems noted. Paternal Aunt Breast cancer Sister No problems noted. Son No problems noted. Social History Household Members: Children Household Members Other:: Divorce. Lives w/son in 2 family. 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 1. Little interest or pleasure in doing things: not at all 2. Feeling down, depressed, or hopeless: not at all 3. Trouble falling or staying asleep, or sleeping too much: not at all 4. Feeling tired or having little energy: several days 5. Poor appetite or overeating: not at all 6. Feeling bad about yourself - or that you are a failure or have let yourself or your family down: not at all 7. Trouble concentrating on things, such as reading the newspaper or watching television: not at all 8. Moving or speaking so slowly that other people could have noticed. Or the opposite - being so fidgety or restless that you have been moving around a lot more than usual: not at all 9. Thoughts that you would be better off or of hurting yourself in some way: not at all Total score: 1 Depression Screening Interpretation: Negative Depression Screening Done: Yes 34072 - PHQ-9 Billing: Yes Source: Developed by Drs. Sandeep Cruz, Ninfa Edwards, Ruddy Roberts and colleagues, with an educational charissa from [employer]. Thrive Questionnaire Date Thrive assessed: 02/15/25 I am a: Patient What is your living situation today?: I have a steady place to live Within the past 12 months, did the food you bought not last and you didn't have the money to get more?: Never true Within the past 12 months, did you worry whether your food would run out before you got money to buy more?: Never true Do you have trouble paying for medicines?: No Do you have trouble getting transportation to medical appointments?: No Do you have trouble paying your heating and electricity bill?: No Do you have trouble taking care of your child, family member or friend?: No Do you have trouble with day-to-day activities such as bathing, preparing meals, shopping, managing finances, etc.?: No Are you currently unemployed and looking for a job?: No Are you interested in more education?: No Please select the resources that you would like help with: None Currently or been in a relationship where the following occur: I choose not to answer THRIVE Score: 0 AUDIT C Alcohol Use Questionnaire (AUDIT-C) 1. How often do you have a drink containing alcohol?: Monthly or less 2. How many drinks containing alcohol do you have on a typical day when you are drinking?: 1 or 2 3. How often do you have six or more drinks on one occasion?: Less than monthly Total Score: 2 JUSTUS-7 AMB Questionnaire JUSTUS-7 Date JUSTUS - 7 assessed: 02/26/24 Feeling nervous, anxious, or on edge: 1 = Several days Not being able to stop or control worryin = Not at all Worrying too much about different things: 1 = Several days Trouble relaxin = Several days Being so restless that it is hard to sit still: 0 = Not at all Becoming easily annoyed or irritable: 0 = Not at all Feeling afraid as if something awful might happen: 0 = Not at all Total JUSTUS-7 score (0-4 normal; 5-9 mild; 10-14 moderate; 15-21 severe): 3 Source: Developed by Drs. Sandeep Cruz, Ninfa Edwards, Ruddy Roberts and colleagues, with an educational charissa from [employer]. Physical exam (Primary Care) Vital Signs: Last Vital Signs Temp 98.3 F 02/15/25 08:28 Pulse 73 02/15/25 08:28 BP 122/78 02/15/25 08:28 Pulse Ox 97 02/15/25 08:28 Oxygen Delivery Method Room Air 02/15/25 08:28 BMI result Body Mass Index 30.1 Tobacco/Smoking Status: Tobacco use Status Tobacco use date assessed 02/15/25 02/15/25 08:34 Patient Tobacco Use Status Never used Tobacco 02/15/25 08:27 e-Cigarette/Vaping Use Never Used 02/15/25 08:27 PHQ-9: PHQ-9 Score PHQ-9: Total score 1 02/15/25 08:53 Depression Screening Interpretation: Negative Thrive Assessment: Date of Thrive Assessment Date Thrive assessed 02/15/25 02/15/25 08:34 Currently or been in a relationship where the following occur: I choose not to answer Coding Level of Care Code Est Pt Level 4 (67167) Complex EM visit Add On G2211 Diagnoses Diabetes 1.5, managed as type 2 E13.9 Sleep disturbance G47.9 Lipid disorder E78.9 Anxiety, generalized F41.1 Age related osteoporosis, unspecified pathological fracture presence M81.0 Osteoporosis type: age-related Presence of current pathological fracture: unspecified Chronic GERD K21.9 Additional Codes PHQ-9 - 49132 - PHQ-9 Billing: Yes ([id number]) Assessment & Plan Assessment & Plan (1) Diabetes 1.5, managed as type 2: Code(s): E13.9 - Other specified diabetes mellitus without complications Category: Medical (2) Sleep disturbance: Code(s): G47.9 - Sleep disorder, unspecified Category: Medical (3) Lipid disorder: Code(s): E78.9 - Disorder of lipoprotein metabolism, unspecified Category: Medical (4) Anxiety, generalized: Code(s): F41.1 - Generalized anxiety disorder Category: Medical (5) Osteoporosis: Code(s): M81.0 - Age-related osteoporosis without current pathological fracture Category: Medical Qualifiers: Osteoporosis type: age-related Presence of current pathological fracture: unspecified Qualified Code(s): M81.0 - Age-related osteoporosis without current pathological fracture (6) Chronic GERD: Code(s): K21.9 - Gastro-esophageal reflux disease without esophagitis Category: Medical Plan This is a longitudinal care/follow-up appointment - The patient is a 64-year-old female with a history of diabetes, hypothyroidism, lipid disorder, obesity, osteoporosis, chronic GERD, presenting with fatigue and disrupted sleep patterns. - Fatigue noted with a lack of energy, possibly due to sleep disruptions. - Sleep disturbances characterized as intermittent waking during the night, only achieving sleep for two to three hours at a time before waking and then attempting to return to sleep. - The patient reports watching TV upon waking at night, experiencing trouble falling back asleep. - The onset and progression over unspecified duration, associated with work- related stress and responsibilities, potentially contributing to a feeling of being overworked. - The patient reports increased anxiety due to perceived increased responsibilities, which may contribute to disrupted sleep. 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 - Experiences work-related stress due to extensive working hours and responsibilities, which may impact sleep and cause fatigue Diagnostic Results: - Labs: - Blood test conducted in November showed no anemia - Kidney function and electrolytes reported as normal - Liver enzymes reported as normal - Vitamin D levels reported as sufficient - No vitamin B12 evaluation recorded Problem List - Fatigue - Sleep disturbances - Anxiety - Hyperlipidemia - Hypothyroidism - Type 2 Diabetes Mellitus - over worked - obesity Patient Instructions - Implement strategies to improve sleep hygiene and ensure adequate rest. - Consider lifestyle changes to manage work-related stress and responsibilities. - Try prescribed mirtazapine 15 mg to assist with sleep disturbances, starting with half a tablet. - Continue current medications and ensure no missed doses. - Follow up for blood tests and possible vitamin B12 levels during next visit. - follow-up in March with physical exam appointment Orders: Orders Hemoglobin A1c Today E13.9 - Other specified diabetes mellitus without complications, E78.9 - Disorder of lipoprotein metabolism, unspecified, F41.1 - Generalized anxiety disorder, K21.9 - Gastro-esophageal reflux disease without esophagitis, M81.0 - Age-related osteoporosis without current pathological fracture Lipid Panel Today E13.9 - Other specified diabetes mellitus without complications, E78.9 - Disorder of lipoprotein metabolism, unspecified, F41.1 - Generalized anxiety disorder, K21.9 - Gastro-esophageal reflux disease without esophagitis, M81.0 - Age-related osteoporosis without current pathological fracture Vitamin B12 Today E13.9 - Other specified diabetes mellitus without complications, E78.9 - Disorder of lipoprotein metabolism, unspecified, F41.1 - Generalized anxiety disorder, K21.9 - Gastro-esophageal reflux disease without esophagitis, M81.0 - Age-related osteoporosis without current pathological fracture Microalbumin, Random (w Creat) Today E13.9 - Other specified diabetes mellitus without complications, E78.9 - Disorder of lipoprotein metabolism, unspecified, F41.1 - Generalized anxiety disorder, K21.9 - Gastro-esophageal reflux disease without esophagitis, M81.0 - Age-related osteoporosis without current pathological fracture Complete Blood Count Auto Diff Today E13.9 - Other specified diabetes mellitus without complications, E78.9 - Disorder of lipoprotein metabolism, unspecified, F41.1 - Generalized anxiety disorder, K21.9 - Gastro-esophageal reflux disease without esophagitis, M81.0 - Age-related osteoporosis without current pathological fracture Comprehensive [place]. Panel Fast Today E13.9 - Other specified diabetes mellitus without complications, E78.9 - Disorder of lipoprotein metabolism, unspecified, F41.1 - Generalized anxiety disorder, K21.9 - Gastro-esophageal reflux disease without esophagitis, M81.0 - Age-related osteoporosis without current pathological fracture TSH reflex Free T4 Today E13.9 - Other specified diabetes mellitus without complications, E78.9 - Disorder of lipoprotein metabolism, unspecified, F41.1 - Generalized anxiety disorder, K21.9 - Gastro-esophageal reflux disease without esophagitis, M81.0 - Age-related osteoporosis without current pathological fracture Medications: New mirtazapine 15 mg PO BEDTIME 30 tabs 0RF Refilled atorvastatin 10 mg PO DAILY 90 tabs 0RF 90 days cholecalciferol (vitamin D3) (Vitamin D3) 2,000 units PO DAILY 90 caps 0RF 90 days levothyroxine 75 mcg PO DAILY 90 tabs 0RF 90 days metformin 1,000 mg PO DAILY 90 tabs 1RF 90 days
[2025-02-15 08:28] VITALS: BP 122/78; PULSE 73; TEMP 36.8; O2SAT 97; BMI 30.1
--- OUTSIDE RECORDS SUMMARY | 2025-02-15 08:36 | XMS_ITS | Patient Health Record ---
Author Organization [facility] Address [address] [place] [address] Care Team Providers Care Clamp Forklift Operator Name Role Phone DIA JACINTA Primary Care Provider Sandeep Salgado [phone] Reason For Referral No Information Medications Medication [...] Status W/U Status Risk Notes Problem Constipation (97406097) Constipation (564.00) Active confirmed Problem Colon cancer screening (V76.51) Active confirmed Plan Of Treatment Future Test Test Name Order Date COLONOSCOPY 01/02/2015 Insurance Providers Payer Name Payer Address Payer Phone Subscriber Number Group Number Insured Name Patient Relationship to Insured Coverage Start Date Coverage End Date [facility] [address] [address] [place], [place] [id number] RAULPRATIKELIZABETMADDISONTHALIAEnedina I Self - patient is the insured Medical (General) History Medical History History ICD Code Denies CA,DM,CVA,Lung disease,renal dise ase Right-sided breast cancer --mastectomy, then chemo and XRT--followed by Dr. Schaefer Hypothyroidism Had a neg ETT at [facility] [place] in 2014 Surgical History Surgery Date(Month/Year) right mastectomy/reconstruction
== END 2025-02-15 09:03 | disposition home or self-care (01) ==
LOC: HO.HMCC 08:25
PROVIDERS: PCP Internal Medicine; Visit Provider Internal Medicine
DX: E13.9 Other specified diabetes mellitus without complications (principal); G47.9 Sleep disorder, unspecified; E78.9 Disorder of lipoprotein metabolism, unspecified; F41.1 Generalized anxiety disorder; M81.0 Age-related osteoporosis without current pathological fracture; K21.9 Gastro-esophageal reflux disease without esophagitis

== ENCOUNTER → 2025-02-15 08:24 | Outpatient (BNVA) | payer OTHER, SELFPAY | PROVIDERS: PCP Internal Medicine; Visit Provider Internal Medicine | DX: F41.1 Generalized anxiety disorder (principal); E03.9 Hypothyroidism, unspecified; E78.9 Disorder of lipoprotein metabolism, unspecified; R53.83 Other fatigue; E13.9 Other specified diabetes mellitus without complications; G47.9 Sleep disorder, unspecified; M81.0 Age-related osteoporosis without current pathological fracture; K21.9 Gastro-esophageal reflux disease without esophagitis; E66.9 Obesity, unspecified; Z68.30 Body mass index [BMI] 30.0-30.9, adult | CPT/HCPCS: 96127; 99212 ==

== ENCOUNTER 2025-02-23 09:16 | Outpatient (REF) | payer OTHER, SELFPAY ==
--- OUTSIDE RECORDS SUMMARY | 2025-02-23 09:35 | XMS_ITS | Patient Health Record ---
Author Organization [facility] Address [address] [place] [address] Care Team Providers Care Primer Assembler Name Role Phone DIA JACINTA Primary Care Provider Sandeep Salgado [phone] Reason For Referral No Information Medications Medication [...] Status W/U Status Risk Notes Problem Constipation (14247398) Constipation (564.00) Active confirmed Problem Colon cancer screening (V76.51) Active confirmed Plan Of Treatment Future Test Test Name Order Date COLONOSCOPY 01/02/2015 Insurance Providers Payer Name Payer Address Payer Phone Subscriber Number Group Number Insured Name Patient Relationship to Insured Coverage Start Date Coverage End Date [facility] [address] [address] [place], [place] [id number] RAULPRATIKELIZABETMADDISONTHALIAEnedina I Self - patient is the insured Medical (General) History Medical History History ICD Code Denies [place],DM,CVA,Lung disease,renal dise ase Right-sided breast cancer --mastectomy, then chemo and XRT--followed by Dr. Schaefer Hypothyroidism Had a neg ETT at [facility] [place] in 2014 Surgical History Surgery Date(Month/Year) right mastectomy/reconstruction
[2025-02-23 10:59] LABS: Parathyroid Hormone Intact 63.2 pg/mL (8.7-77.1)
[2025-02-23 11:11] LABS: Albumin Level 4.4 g/dL (3.5-5.0); Calcium 9.5 mg/dL (8.4-10.2); Estimated Glomerular Filt Rate > 60
[2025-02-23 11:45] LABS: Total Volume 24 Hour Urine 1725 mL
[2025-02-23 12:20] LABS: Creatinine, mg/dL 85.40; Creatinine, mg/dL 86.12; Sodium, 24 Hr Urine 86.0 mmol/L
[2025-02-24 15:18] LABS: Calcium, Ionized 5.3 mg/dL (4.7-5.5)
[2025-02-24 16:17] LABS: Calcium/Creatinine Ratio 123 mg/g creat (30-275); Creatinine 24Hr Urine 1.50 g/24 h (0.50-2.15)
[2025-02-27 15:53] LABS: VITAMIN D (1,25 OH) D3 46 pg/mL; Vit D (1,25-Dihydroxy) Total 46 pg/mL (18-72); Vitamin D (1,25 OH) D2 <8 pg/mL
[2025-02-28 15:04] LABS: Vitamin D 25-OH, D2 <4 ng/mL; Vitamin D 25-OH, D3 41 ng/mL; Vitamin D 25-OH, Total 41 ng/mL (30-100)
[2025-03-02 17:03] LABS: Parathyroid Hormone Related Pr 10 pg/mL (11-20)
== END 2025-02-23 09:17 | disposition home or self-care (01) ==
LOC: HO.LAB 09:16
PROVIDERS: PCP Internal Medicine; Visit Provider Student in an Organized Health Care Education/Training Program
DX: M81.0 Age-related osteoporosis without current pathological fracture (principal)
CPT/HCPCS: 36415; 82040; 82306; 82310; 82330; 82340; 82565; 82570; 82652; 83519; 83970; 84100; 84300

== ENCOUNTER 2025-03-20 10:21 | Outpatient (REF) | payer OTHER, SELFPAY ==
--- NOTE | ~2025-03-20 | US_ITS ---
CLINICAL HISTORY: M81.0 - hypercalcemia US Renal Comparison: None provided Findings: Right kidney normal size and echotexture, 10.1 cm length. Left kidney normal size and echotexture, 10.8 cm length. No hydronephrosis of either kidney. Normal color Doppler IMPRESSION: 1. Normal kidneys. This document has been electronically signed by: Balaji Crowe MD on 03/20/2025 21:33:30
--- OUTSIDE RECORDS SUMMARY | 2025-03-20 10:59 | XMS_ITS | Patient Health Record ---
Author Organization [facility] Address [address] [place] [address] Care Team Providers Care University President Name Role Phone DIA JACINTA Primary Care Provider Sandeep Salgado [phone] Reason For Referral No Information Medications Medication [...] Status W/U Status Risk Notes Problem Constipation (79840389) Constipation (564.00) Active confirmed Problem Colon cancer screening (868417583) Colon cancer screening (V76.51) Active confirmed Plan Of Treatment Future Test Test Name Order Date COLONOSCOPY 01/02/2015 Insurance Providers Payer Name Payer Address Payer Phone Subscriber Number Group Number Insured Name Patient Relationship to Insured Coverage Start Date Coverage End Date [facility] [address] [address] [place], [place] [id number] DARI JACOBSEN I Self - patient is the insured Medical (General) History Medical History History ICD Code Denies [place],DM,CVA,Lung disease,renal dise ase Right-sided breast cancer --mastectomy, then chemo and XRT--followed by Dr. Schaefer Hypothyroidism Had a neg ETT at [facility] [place] in [place] Surgical History Surgery Date(Month/Year) right mastectomy/reconstruction
[2025-03-20 13:12] LABS: MANUAL DIFF FLAG NO
[2025-03-20 13:41] LABS: Hematocrit 38.7 % (37.0-47.0); Hemoglobin 12.4 g/dl (12.0-16.0); Imm Gran Abs Auto 0.02 X10*3/uL (0.00-0.03); Imm Gran Pct Auto 0.3 % (0.0-0.4); Lymphocytes Absolute Auto 2.7 X10*3/uL (1.2-4.9); Mean Corpuscular HGB Conc 32.0 g/dl (31.0-35.0); Mean Corpuscular Hemoglobin 29.1 pg (27.0-33.0); Mean Corpuscular Volume 90.8 fL (80.0-98.0); NRBC Abs Auto 0.000 X10*3/uL (0.0-0.012); NRBC Pct Auto 0.0 /100WBC (0.0-0.2); Platelet Count 308 X10*3/uL (160-400); Red Blood Count 4.26 X10*6/uL (4.20-5.50); White Blood Count 6.3 X10*3/uL (4.8-10.8)
[2025-03-20 14:04] LABS: Alanine Aminotransferase 17 U/L (0-31); Albumin Level 4.5 g/dL (3.5-5.0); Alkaline Phosphatase 56 U/L (39-117); Anion Gap 11 (12-20); Aspartate Amino Transferase 28 U/L (5-31); Blood Urea Nitrogen 13 mg/dL (9-16); Calcium 9.5 mg/dL (8.4-10.2); Carbon Dioxide 27 mmol/L (22-29); Chloride 109 mmol/L (96-108); Cholesterol 152 mg/dL (<200); Estimated Glomerular Filt Rate > 60; HDL Cholesterol 36 mg/dL (>40); Potassium 4.2 mmol/L (3.3-5.1); Sodium 143 mmol/L (135-145); Total Protein 7.3 g/dL (6.5-8.0); Triglycerides 153 mg/dL (<150)
[2025-03-20 14:07] LABS: Hemoglobin A1C 171.3055 umol/L; Total Hemoglobin (HGBA1C) 4047.9235 umol/L
[2025-03-20 14:19] LABS: Vitamin B12 706 pg/mL (200-900)
[2025-03-20 14:30] LABS: Microalbum/Creatinine Ratio Ur 7.2 ug/mg cr (<30)
== END 2025-03-20 10:22 | disposition home or self-care (01) ==
LOC: HO.HMGCX 10:21
PROVIDERS: PCP Internal Medicine; Visit Provider Student in an Organized Health Care Education/Training Program
DX: M81.0 Age-related osteoporosis without current pathological fracture (principal); E83.52 Hypercalcemia; E13.9 Other specified diabetes mellitus without complications; E78.9 Disorder of lipoprotein metabolism, unspecified; F41.1 Generalized anxiety disorder; K21.9 Gastro-esophageal reflux disease without esophagitis
CPT/HCPCS: 36415; 76775; 80053; 80061; 82043; 82570; 82607; 83036; 84443; 85025

== ENCOUNTER → 2025-03-20 10:24 | Outpatient (BNV) | payer OTHER, SELFPAY | PROVIDERS: PCP Internal Medicine; Visit Provider Radiology Diagnostic Radiology | DX: M81.0 Age-related osteoporosis without current pathological fracture (principal) | CPT/HCPCS: 76775 ==

== ENCOUNTER 2025-03-27 13:49 | Outpatient (AMB) | payer OTHER, SELFPAY ==
--- NOTE | 2025-03-27 13:53 | MHC.OFFVIS ---
Vital Signs 03/27/25 13:54 Height 5 ft 1 in Weight 158 lb 4.67 oz BMI 29.9 BP 124/68 Blood Pressure Location Lt brachial Position Sitting Pulse 68 Pulse Source Pulse Oximeter Pulse Oximetry (%) 98 Oxygen Delivery Method Room Air Intake Visit Reasons: Osteoporosis Intake Note: Patient present today for Osteoporosis office visit. 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 HPI First diagnosed in Aug 2023 on Dexa scan which showed Dexa scan Left fem neck -3.3 Left fem total -3 decrease of 25.4 % at hip since 2020 L spine -0.9 5.7% increase since 2020 Has history of right breast cancer diagnosed 1989, s/p rt mastectomy and reconstruction 1998 plus RT and chemo S/p tamoxifen 5 years S/p 7 cycles of Zometa for bone health. last given Aug 2023 Fracture history : rib fracture 2020 after picking up a heavy water melon No other fractures Calcium :Milk not much . Does some almond milk. Has few servings of dietary calcium per day in the form of cheese . Not Takes Calcium supplement Vitamin D: Takes 2000 IU of Vitamin D daily. Denies ever using PPI, anticoagulant, antiepileptic or glucocorticoid medication. Does some weight bearing exercise walking 2 days per week in the form of walking . Height loss: no [employer] history: menarche at age 15 menoapuase at age 32- had RT periods stopped after that Denies history of Kidney stones: Denies family history of Osteoporosis or hip fracture. Hasnt seen dentisit for a while doesnt go regulalry , has some fake teeth . Denies history of heart attack or stroke 01/10/2025: Blood work showed elevated total calcium of 10.5, with albumin of 4.6, corrected calcium would be on the higher side of normal at 10.1, ionized calcium elevated at 5.6, normal kidney function with a EGFR greater than 60, 25 vitamin-D level of 55.9, PTH inappropriately normal at 44.3, bone specific alkaline phosphatase on the lower side at 9.2, with CTX also not elevated at 185. Blood work repeated at [facility] 02/06/2025 showed calcium of 9.5 with albumin of 4.2, corrected calcium would be 9.3, ionized calcium normal at 5.2, PTH of 56. Interval history Ultrasound kidneys 03/20/2025 showed no kidney stones. Labs from 02/23/2025 showed normal kidney function with a EGFR greater than 60, calcium 9.5, albumin of 4.4, corrected calcium would be 9.1, ionized calcium normal at 5.3, normal phosphorus of 3.3, normal vitamin-D level of 41, normal PTH of 63.2, and low PTH RP at 10. 24 hour urine calcium level also normal from 02/23/2025. Blood work from March 2025 also showed normal kidney function with a GFR greater than 60, calcium 9.5, albumin 4.5, corrected calcium would be 9.1. Vitamin-D: 2000 units daily Calcium intake: milk now daily mostly , cheese daily , some ice cream here and there Dentist:saw dentist March 2025, no extraction or implants needed Physical exam General: sitting comfortably in no acute distress HEENT: normocephalic/atraumatic, Neck: supple, symmetrical Cardiac: normal heart sounds Pulm: normal breath sounds B/L, no added breath sounds Abd: not distended, no tenderness Extremities: no edema, no signs of myxedema Laboratory Tests 06/20/24 06/22/24 11/14/24 11:21 07:45 10:56 Sodium 142 141 Potassium 4.5 Creatinine 0.80 0.77 Estimated GFR > 60 > 60 Calcium 9.8 10.1 Albumin (PEP) 4.2 25-OH Vitamin D Total 66.1 TSH 3.13 Ur 24 Hour Volume 1350 Ur Creatinine mg/dL 110.50 Ur Creatinine 24 Hour 1.5 Ur Calcium 24 Hr 135 Calcium/Creat 24 Hr 94 Laboratory Tests 01/10/25 09:30 Creatinine 0.85 Estimated GFR > 60 Calcium 10.5 H Ionized Calcium 5.6 H Alk Phos Bone Specific 9.2 Albumin 4.6 Collgn I C-Telopeptide 185 25-OH Vitamin D Total 55.9 PTH Intact 44.3 US Renal 03/20/25 Comparison: None provided Findings: Right kidney normal size and echotexture, 10.1 cm length. Left kidney normal size and echotexture, 10.8 cm length. No hydronephrosis of either kidney. Normal color Doppler IMPRESSION: 1. Normal kidneys. This document has been electronically signed by: Balaji Crowe MD on 03/20/2025 21:33:30 DXA dated 09/02/23: FINDINGS: LEFT FEMUR, NECK: Current: BMD 0.575 g/cm2, Z-score -2.4, T-score -3.3, osteoporosis. Prior: BMD 0.859 g/cm2. Baseline: BMD 0.790 g/cm2. LEFT FEMUR, TOTAL: Current: BMD 0.633 g/cm2, Z-score -2.4, T-score -3.0, osteoporosis, 32.5% decrease from previous, 25.4% decrease from baseline (<5% change is not significant). Prior: BMD 0.938 g/cm2. Baseline: BMD 0.848 g/cm2. AP SPINE L1-L4: Current: BMD 1.074 g/cm2, Z-score -0.2, T-score -0.9, normal, 5.7% increase from previous, 17.8% increase from baseline (<5% change is not significant). Prior: BMD 1.016 g/cm2. Baseline: BMD 0.912 g/cm2. Labs: [facility] Medical History Hypercalcemia Diabetes Vitamin D deficiency Hypothyroidism Dyslipidemia Surgical History History of surgery on arm History of surgery History of colonoscopy History of reconstruction of right breast History of modified radical mastectomy of right breast Family History Father Cancer Leukemia Mother Diabetes mellitus Ovarian cancer Maternal Grandmother Cancer Ovarian cancer Maternal Grandfather No problems noted. Paternal Grandmother No problems noted. Paternal Grandfather No problems noted. Paternal Aunt Breast cancer Sister No problems noted. Son No problems noted. Social History Household Members: Children Household Members Other:: Divorce. Lives w/son in 2 family. 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 Sexual orientation: Straight/Heterosexual Gender identity: Female Cognitive needs: No Hearing needs: No Vision needs: Yes Physical Exam Vital Signs: Last Vital Signs Pulse 68 03/27/25 13:54 BP 124/68 03/27/25 13:54 Pulse Ox 98 03/27/25 13:54 Oxygen Delivery Method Room Air 03/27/25 13:54 BMI result Body Mass Index 29.9 Assessment & Plan Assessment & Plan (1) Osteoporosis: Code(s): M81.0 - Age-related osteoporosis without current pathological fracture Category: Medical Qualifiers: Osteoporosis type: age-related Presence of current pathological fracture: unspecified Qualified Code(s): M81.0 - Age-related osteoporosis without current pathological fracture Plan: 64-year-old female diagnosed with osteoporosis on DEXA scan in August 2023 which showed Left fem neck -3.3 Left fem total -3 decrease of 25.4 % at hip since 2020 L spine -0.9 5.7% increase since 2020. She has had a history of rib fracture back in 2020. No other fractures. Risk factors for osteoporosis include early menopause at age 32 due to history of radiation therapy for breast cancer, age,. She has been on Zometa annually for 7 cycles up until August 2023. This was being managed by Oncology previously. She had secondary workup done in June 2024 which was unremarkable. She saw Dr. Nassar back in June 2024 and there was some concern whether her most recent bone density in August 2023 is accurate because she has had a drop of 25% at her bone density of the hip, while her bone density in the spine remained stable. She now has severe osteoporosis of the hip. She has actually gained 20 lb compared to her bone density in 2020, instead of losing it sometimes decrease in weight can cause the decrease in bone density but that is not the case with her. Dr. Nassar had ordered a repeat bone density scan considering this large disparity between the hip and spine, however her insurance would not cover it. Also given such a drop in the hip bone density, and in January I also noticed that her her calcium has also been on the high normal side. I decided to check again for for some secondary workup. Interestingly 01/10/2025: Blood work showed elevated total calcium of 10.5, with albumin of 4.6, corrected calcium would be on the higher side of normal at 10.1, ionized calcium elevated at 5.6, normal kidney function with a EGFR greater than 60, 25 vitamin-D level of 55.9, PTH inappropriately normal at 44.3, bone specific alkaline phosphatase on the lower side at 9.2, with CTX also not elevated at 185. Blood work repeated at [facility] 02/06/2025 showed calcium of 9.5 with albumin of 4.2, corrected calcium would be 9.3, ionized calcium normal at 5.2, PTH of 56. Ultrasound kidneys 03/20/2025 showed no kidney stones. Labs from 02/23/2025 showed normal kidney function with a EGFR greater than 60, calcium 9.5, albumin of 4.4, corrected calcium would be 9.1, ionized calcium normal at 5.3, normal phosphorus of 3.3, normal vitamin-D level of 41, normal PTH of 63.2, and low PTH RP at 10. 24 hour urine calcium level also normal from 02/23/2025. Blood work from March 2025 also showed normal kidney function with a GFR greater than 60, calcium 9.5, albumin 4.5, corrected calcium would be 9.1. At this time no concerns for parathyroid issues. She is on good amounts of vitamin-D 2000 units daily, vitamin-D level was good from June 2024. However she did not have much of a nutritional intake of calcium, I asked her to incorporate more calcium in her diet. She has been doing so since January 2025. Considering very low bone density in hip , history of rib fracture and high risk for fracture consideration could be given for use of anabolic therapy initially . Forteo and Tymlos are contraindicated in this patient considering prior history of radiation therapy plus these do not have much data on the hip fracture reduction anyway. I discussed with her regarding initiating Evenity. . She has no history of heart attack or stroke. Pros and cons discussed including black box warning of increased cardiac events 1% absolute risk -He has not had a cardiac event or stroke and he is relatively in good shape I.e. no hypertension hyperlipidemia or diabetes -Other side effects of arthralgia headaches hypocalcemia discussed Osteonecrosis of the jaw and atypical femur fracture is un likely Plus her bone resorption markers interestingly are not elevated, again supporting that she would not be a good candidate for antiresorptive therapy, instead I would put her on Evenity for treatment. Plan: -initiate Evenity monthly injections -continue vitamin-D 2000 units daily -incorporate at least 1000 mg of calcium in diet -continue weight-bearing exercise/walking -we will see her back in 3 months to see how she is doing on the treatment. Plan I spent 30 minutes in reviewing the record, seeing the patient and documenting in the medical record. Medications: New romosozumab-aqqg (Evenity) 210 mg (2.34 mL) subcut QMONTH 2.34 mL 12RF 12 months M81.0 - Age-related osteoporosis without current pathological fracture Patient Instructions: Continue vitamin D 2000 units daily Continue maintaining calcium intake through diet We plan to start you on a new medication called Evenity, this is a monthly 2 injections given by nurse at our office. If you insurance approves it please expect a call from the nurse Pros and cons discussed including black box warning of increased cardiac events 1% absolute risk -He has not had a cardiac event or stroke and he is relatively in good shape I.e. no hypertension hyperlipidemia or diabetes -Other side effects of arthralgia headaches hypocalcemia discussed Osteonecrosis of the jaw and atypical femur fracture is un likely Coding Level of Care Code Est Pt Level 4 (83029) Diagnoses Age related osteoporosis, unspecified pathological fracture presence M81.0 Osteoporosis type: age-related Presence of current pathological fracture: unspecified Time Spent (min) 30
[2025-03-27 13:54] VITALS: BP 124/68; PULSE 68; O2SAT 98; BMI 29.9
--- OUTSIDE RECORDS SUMMARY | 2025-03-27 14:40 | XMS_ITS | Patient Health Record ---
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 Name Role Phone DIA JACINTA Primary Care Provider Sandeep Salgado [phone] Reason For Referral No Information Medications Medication [...] Status W/U Status Risk Notes Problem Constipation (76940555) Constipation (564.00) Active confirmed Problem Colon cancer screening (V76.51) Active confirmed Plan Of Treatment Future Test Test Name Order Date COLONOSCOPY 01/02/2015 Insurance Providers Payer Name Payer Address Payer Phone Subscriber Number Group Number Insured Name Patient Relationship to Insured Coverage Start Date Coverage End Date [facility] [address] [address] [place], [place] [phone] [id number] RAULPRATIK ELIZABETMADDISONTHALIAEnedina I Self - patient is the insured Medical (General) History Medical History History ICD Code Denies PR,DM,CVA,Lung disease,renal dise ase Right-sided breast cancer --mastectomy, then chemo and XRT--followed by Dr. Schaefer Hypothyroidism Had a neg ETT at [facility] in 2014 Surgical History Surgery Date(Month/Year) right mastectomy/reconstruction
== END 2025-03-27 14:23 | disposition home or self-care (01) ==
LOC: HO.ENCR 13:50
PROVIDERS: PCP Internal Medicine; Visit Provider Student in an Organized Health Care Education/Training Program
DX: M81.0 Age-related osteoporosis without current pathological fracture (principal)
CPT/HCPCS: 99214

== ENCOUNTER → 2025-03-27 13:49 | Outpatient (BNVA) | payer OTHER, SELFPAY | PROVIDERS: PCP Internal Medicine; Visit Provider Student in an Organized Health Care Education/Training Program | DX: M81.0 Age-related osteoporosis without current pathological fracture (principal) | CPT/HCPCS: 99212 ==

== ENCOUNTER 2025-04-28 08:22 | Outpatient (AMB) | payer OTHER, SELFPAY ==
--- NOTE | 2025-04-28 08:31 | A.OFFPC_ITS ---
Vital Signs 04/28/25 08:32 Height 5 ft 1 in Weight 157 lb BMI 29.7 BP 122/70 Blood Pressure Location Lt brachial Position Sitting Pulse 79 Pulse Source Pulse Oximeter Pulse Oximetry (%) 97 Oxygen Delivery Method Room Air Intake Visit Reasons: 1.5m follow up Classifier Operator Required: No Accompanied by: Self / Same As Patient Allergies No Known Allergies (No Known Allergies*) Allergy (Verified 04/28/25 08:34) Medication List - Last Reconciled 04/28/25 by Whitney Gavin MD atorvastatin 10 mg PO DAILY 90 days cholecalciferol (vitamin D3) (Vitamin D3) 2,000 units PO DAILY 90 days levothyroxine 75 mcg PO DAILY 90 days metformin 1,000 mg PO DAILY 90 days mirtazapine 15 mg PO BEDTIME romosozumab-aqqg (Evenity) 210 mg (2.34 mL) subcut QMONTH 12 months Tobacco use date assessed: 02/15/25 Dental Screening Dental Screen Date: 04/28/25 Did you have a dental visit in the last 12 months?: Yes Did you have a dental problem in the last 6 months where you did not have access to dental care?: No Was dental information given to patient?: Patient has dentist HPI 1.5m follow up HPI Details History The patient is a 64 year old female presenting with body aches and osteoarthritis. Body Aches: - Reports generalized body aches with in tensity varying over time. - Sometimes feels the ache in the bones. Osteoarthritis: - Joint pain noted in the hands, sugges ting osteoarthritis. - Family history of similar issues and a ge-related occurrence discussed. - Has been taking Aleve for relief. 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 Nobles, involved in care for osteopo rosis management Patient Instructions - Reduce metformin dose to half a tablet and discuss usage with a pill cutter, to 500 mg - Prescribed Celebrex once daily with joceline macedo for osteoarthritis pain, New Med - Monitor for any medication reactions a nd report promptly - Scheduled blood test in four months, f asting not necessary - Declined flu vaccine at this visit has apt early next year Review of Systems General: No fever no chills neurological: No headaches no dizziness ear nose throat: No sore throat no hearing difficulty no ear pain cardiovascular: No syncope, no chest pain, no palpitations gastrointestinal: No nausea vomiting or diarrhea endocrine: No polyuria polydipsia no heat intolerance genitourinary: No dysuria skin: No new complaints Physical Exam general: No acute distress HEENT: No acute findings neck: Supple respiratory system: Able to talk in full sentences, no audible wheeze no stridor cardiovascular: S1-S2 RRR gastrointestinal: No pain extremities: Developing arthritis, signs of osteoarthritis in hands GWOT IA/ILO INTELLIGENCE SUPPORT: Alert awake oriented x3 motor sensory intact skin: Normal turgor Patient was informed and verbally consented to the use of an ambient scribe for clinic note documentation during this visit. [facility] Medical History Hypercalcemia Diabetes Vitamin D deficiency Hypothyroidism Dyslipidemia Surgical History History of surgery on arm History of surgery History of colonoscopy History of reconstruction of right breast History of modified radical mastectomy of right breast Family History Father Cancer Leukemia Mother Diabetes mellitus Ovarian cancer Maternal Grandmother Cancer Ovarian cancer Maternal Grandfather No problems noted. Paternal Grandmother No problems noted. Paternal Grandfather No problems noted. Paternal Aunt Breast cancer Sister No problems noted. Son No problems noted. Social History Household Members: Children Household Members Other:: Divorce. Lives w/son in 2 family. 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 1. Little interest or pleasure in doing things: not at all 2. Feeling down, depressed, or hopeless: not at all 3. Trouble falling or staying asleep, or sleeping too much: not at all 4. Feeling tired or having little energy: several days 5. Poor appetite or overeating: not at all 6. Feeling bad about yourself - or that you are a failure or have let yourself or your family down: not at all 7. Trouble concentrating on things, such as reading the newspaper or watching television: not at all 8. Moving or speaking so slowly that other people could have noticed. Or the opposite - being so fidgety or restless that you have been moving around a lot more than usual: not at all 9. Thoughts that you would be better off or of hurting yourself in some way: not at all Total score: 1 Depression Screening Interpretation: Negative Depression Screening Done: Yes 89565 - PHQ-9 Billing: Yes Source: Developed by Drs. Sandeep Cruz, Ninfa Edwards, Ruddy Roberts and colleagues, with an educational charissa from [employer]. Thrive Questionnaire Date Thrive assessed: 02/08/25 I am a: Patient What is your living situation today?: I have a steady place to live Within the past 12 months, did the food you bought not last and you didn't have the money to get more?: Never true Within the past 12 months, did you worry whether your food would run out before you got money to buy more?: Never true Do you have trouble paying for medicines?: No Do you have trouble getting transportation to medical appointments?: No Do you have trouble paying your heating and electricity bill?: No Do you have trouble taking care of your child, family member or friend?: No Do you have trouble with day-to-day activities such as bathing, preparing meals, shopping, managing finances, etc.?: No Are you currently unemployed and looking for a job?: No Are you interested in more education?: No Please select the resources that you would like help with: None Currently or been in a relationship where the following occur: I choose not to answer THRIVE Score: 0 AUDIT C Alcohol Use Questionnaire (AUDIT-C) 1. How often do you have a drink containing alcohol?: Monthly or less 2. How many drinks containing alcohol do you have on a typical day when you are drinking?: 1 or 2 3. How often do you have six or more drinks on one occasion?: Less than monthly Total Score: 2 JUSTUS-7 AMB Questionnaire JUSTUS-7 Date JUSTUS - 7 assessed: 04/28/25 Feeling nervous, anxious, or on edge: 1 = Several days Not being able to stop or control worryin = Not at all Worrying too much about different things: 1 = Several days Trouble relaxin = Several days Being so restless that it is hard to sit still: 0 = Not at all Becoming easily annoyed or irritable: 0 = Not at all Feeling afraid as if something awful might happen: 0 = Not at all Total JUSTUS-7 score (0-4 normal; 5-9 mild; 10-14 moderate; 15-21 severe): 3 Source: Developed by Drs. Sandeep Cruz, Ninfa Edwards, Ruddy Roberts and colleagues, with an educational charissa from [employer]. JUSTUS-7 Assessment Billing JUSTUS-7 Assessment Tool: JUSTUS-7 Assessment 37216 Physical exam (Primary Care) Vital Signs: Last Vital Signs Pulse 79 04/28/25 08:32 BP 122/70 04/28/25 08:32 Pulse Ox 97 04/28/25 08:32 Oxygen Delivery Method Room Air 04/28/25 08:32 BMI result Body Mass Index 29.7 Tobacco/Smoking Status: Tobacco use Status Tobacco use date assessed 02/15/25 04/28/25 08:32 Patient Tobacco Use Status Never used Tobacco 04/28/25 08:32 e-Cigarette/Vaping Use Never Used 04/28/25 08:32 PHQ-9: PHQ-9 Score PHQ-9: Total score 1 04/28/25 08:35 Depression Screening Interpretation: Negative Thrive Assessment: Date of Thrive Assessment Date Thrive assessed 02/08/25 04/28/25 08:32 Currently or been in a relationship where the following occur: I choose not to answer Coding Level of Care Code Est Pt Level 4 (60686) Complex EM visit Add On G2211 Diagnoses Diabetes 1.5, managed as type 2 E13.9 Lipid disorder E78.9 Other specified hypothyroidism E03.8 Sleep disturbance G47.9 Arthritis involving multiple sites M12.9 Age related osteoporosis, unspecified pathological fracture presence M81.0 Osteoporosis type: age-related Presence of current pathological fracture: unspecified Chronic GERD K21.9 Additional Codes JUSTUS-7 Assessment Billing - JUSTUS-7 Assessment Tool: JUSTUS-7 Assessment 02401 ([id number]) PHQ-9 - 98765 - PHQ-9 Billing: Yes ([id number]) Assessment & Plan Assessment & Plan (1) Diabetes 1.5, managed as type 2: Code(s): E13.9 - Other specified diabetes mellitus without complications Category: Medical (2) Lipid disorder: Code(s): E78.9 - Disorder of lipoprotein metabolism, unspecified Category: Medical (3) Other specified hypothyroidism: Code(s): E03.8 - Other specified hypothyroidism Category: Medical (4) Sleep disturbance: Code(s): G47.9 - Sleep disorder, unspecified Category: Medical (5) Arthritis involving multiple sites: Code(s): M12.9 - Arthropathy, unspecified Category: Medical (6) Osteoporosis: Code(s): M81.0 - Age-related osteoporosis without current pathological fracture Category: Medical Qualifiers: Osteoporosis type: age-related Presence of current pathological fracture: unspecified Qualified Code(s): M81.0 - Age-related osteoporosis without current pathological fracture (7) Chronic GERD: Code(s): K21.9 - Gastro-esophageal reflux disease without esophagitis Category: Medical Plan History The patient is a 64 year old female presenting with body aches and osteoarthritis. Body Aches: - Reports generalized body aches with intensity varying over time. - Sometimes feels the ache in the bones. Osteoarthritis: - Joint pain noted in the hands, suggesting osteoarthritis. - Family history of similar issues and age-related occurrence discussed. - Has been taking Aleve for relief. 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 Nobles, involved in care for osteoporosis management Patient Instructions - Reduce metformin dose to half a tablet and discuss usage with a pill cutter, to 500 mg - Prescribed Celebrex once daily with breakfast for osteoarthritis pain, New Med - Monitor for any medication reactions and report promptly - Scheduled blood test in four months, fasting not necessary - Declined flu vaccine at this visit has apt early next year Patient was informed and verbally consented to the use of an ambient scribe for clinic note documentation during this visit. Orders: Orders Complete Blood Count Auto Diff Today E03.8 - Other specified hypothyroidism, E13.9 - Other specified diabetes mellitus without complications, E66.9 - Obesity, unspecified, E78.9 - Disorder of lipoprotein metabolism, unspecified, G47.9 - Sleep disorder, unspecified, M12.9 - Arthropathy, unspecified Comprehensive Met. Panel Today E03.8 - Other specified hypothyroidism, E13.9 - Other specified diabetes mellitus without complications, E66.9 - Obesity, unspecified, E78.9 - Disorder of lipoprotein metabolism, unspecified, G47.9 - Sleep disorder, unspecified, M12.9 - Arthropathy, unspecified Vitamin D 25-OH (D2 and D3) Today E03.8 - Other specified hypothyroidism, E13.9 - Other specified diabetes mellitus without complications, E66.9 - Obesity, unspecified, E78.9 - Disorder of lipoprotein metabolism, unspecified, G47.9 - Sleep disorder, unspecified, M12.9 - Arthropathy, unspecified Hemoglobin A1c Today E03.8 - Other specified hypothyroidism, E13.9 - Other specified diabetes mellitus without complications, E66.9 - Obesity, unspecified, E78.9 - Disorder of lipoprotein metabolism, unspecified, G47.9 - Sleep disorder, unspecified, M12.9 - Arthropathy, unspecified TSH reflex Free T4 Today E03.8 - Other specified hypothyroidism, E13.9 - Other specified diabetes mellitus without complications, E66.9 - Obesity, unspecified, E78.9 - Disorder of lipoprotein metabolism, unspecified, G47.9 - Sleep disorder, unspecified, M12.9 - Arthropathy, unspecified Microalbumin, Random (w Creat) Today E03.8 - Other specified hypothyroidism, E13.9 - Other specified diabetes mellitus without complications, E66.9 - Obesity, unspecified, E78.9 - Disorder of lipoprotein metabolism, unspecified, G47.9 - Sleep disorder, unspecified, M12.9 - Arthropathy, unspecified Medications: New celecoxib (Celebrex) 200 mg PO DAILY 90 caps 0RF joint pain Changed From metformin 1,000 mg PO DAILY 90 days 90 tabs 1RF To metformin 500 mg PO DAILY 90 tabs 1RF 90 days Refilled cholecalciferol (vitamin D3) (Vitamin D3) 2,000 units PO DAILY 90 caps 0RF 90 days levothyroxine 75 mcg PO DAILY 90 tabs 0RF 90 days atorvastatin 10 mg PO DAILY 90 tabs 0RF 90 days mirtazapine 15 mg PO BEDTIME 30 tabs 0RF
[2025-04-28 08:32] VITALS: BP 122/70; PULSE 79; O2SAT 97; BMI 29.7
== END 2025-04-28 08:53 | disposition home or self-care (01) ==
LOC: HO.HMCC 08:23
PROVIDERS: PCP Internal Medicine; Visit Provider Internal Medicine
DX: E13.9 Other specified diabetes mellitus without complications (principal); E78.9 Disorder of lipoprotein metabolism, unspecified; E03.8 Other specified hypothyroidism; G47.9 Sleep disorder, unspecified; M12.9 Arthropathy, unspecified; M81.0 Age-related osteoporosis without current pathological fracture; K21.9 Gastro-esophageal reflux disease without esophagitis

== ENCOUNTER → 2025-04-28 08:22 | Outpatient (BNVA) | payer OTHER, SELFPAY | PROVIDERS: PCP Internal Medicine; Visit Provider Internal Medicine | DX: K21.9 Gastro-esophageal reflux disease without esophagitis (principal); E13.9 Other specified diabetes mellitus without complications; E78.9 Disorder of lipoprotein metabolism, unspecified; E03.8 Other specified hypothyroidism; G47.9 Sleep disorder, unspecified; M12.9 Arthropathy, unspecified; M81.0 Age-related osteoporosis without current pathological fracture; E66.9 Obesity, unspecified; Z68.29 Body mass index [BMI] 29.0-29.9, adult | CPT/HCPCS: 96127; 99212 ==

== ENCOUNTER 2025-05-03 08:56 | Outpatient (AMB) | payer OTHER, SELFPAY ==
--- NOTE | 2025-05-03 09:33 | AM.OFFVISNUR ---
Intake Visit Reasons: Evenity #1 Allergies No Known Allergies (No Known Allergies*) Allergy (Verified 04/28/25 08:34) Office Meds romosozumab-aqqg 210 mg/2.34 mL(105 mg/1.17 mL x2)subcutaneous syringe Performing Provider: Arielle Nobles MD Performing Location: [facility] Endocrinology Administered by: Edith Hall RN on 05/03/25 09:15 Dose Route Admin Location Dispensed Lot Number Expiration Date [facility] Industrial Engineering Intern 210 mg subcut bilateral upper arms 2.34 mL [id number] 07/09/27 50983-891-73 [employer] Total Dispensed Waste 2.34 mL 0 % Comments: patient tolerated injection well. patient stayed for 15 minutes after injection. no adverse reaction observed. patient is scheduled in 4 weeks for next appointment. no further questions at this time. Assessment & Plan Assessment & Plan Orders: Orders AMB Romosozumab Injection Patient Supplied Today M81.0 - Age-related osteoporosis without current pathological fracture Coding
--- OUTSIDE RECORDS SUMMARY | 2025-05-03 10:30 | XMS_ITS | Patient Health Record ---
Author Organization [facility] Address [address] [place] [address] Care Team Providers Care Printed Circuit Boards Inspector Name Role Phone DIA JACINTA Primary Care Provider Sandeep Salgado [phone] Reason For Referral No Information Medications Medication [...] Status W/U Status Risk Notes Problem Constipation (42446513) Constipation (564.00) Active confirmed Problem Colon cancer screening (729813630) Colon cancer screening (V76.51) Active confirmed Plan Of Treatment Future Test Test Name Order Date COLONOSCOPY 01/02/2015 Insurance Providers Payer Name Payer Address Payer Phone Subscriber Number Group Number Insured Name Patient Relationship to Insured Coverage Start Date Coverage End Date [facility] [address] [address] [place], [place] [id number] DARI JACOBSEN I Self - patient is the insured Medical (General) History Medical History History ICD Code Denies ND,DM,CVA,Lung disease,renal dise ase Right-sided breast cancer --mastectomy, then chemo and XRT--followed by Dr. Schaefer Hypothyroidism Had a neg ETT at [facility] in 2014 Surgical History Surgery Date(Month/Year) right mastectomy/reconstruction
== END 2025-05-03 09:29 | disposition home or self-care (01) ==
LOC: HO.ENCR 08:56
PROVIDERS: PCP Internal Medicine; Visit Provider Student in an Organized Health Care Education/Training Program
DX: M81.0 Age-related osteoporosis without current pathological fracture (principal)

== ENCOUNTER → 2025-05-03 08:56 | Outpatient (BNVA) | payer OTHER, SELFPAY | PROVIDERS: PCP Internal Medicine; Visit Provider Student in an Organized Health Care Education/Training Program | DX: M81.0 Age-related osteoporosis without current pathological fracture (principal) | CPT/HCPCS: 96372; J3111 ==

== ENCOUNTER 2025-05-25 08:55 | Outpatient (AMB) | payer OTHER, SELFPAY ==
--- NOTE | 2025-05-25 08:56 | MHC.OFFVIS ---
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 School Coordinator concerns: none. Currently not sexually active. Denies any vaginal dryness or irritation. STI testing offered; she declined. 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 Last pap smear; 2022, negative. Last mammogram; 2024. Colonoscopy is UTD. [facility] Medical History Hypercalcemia Diabetes Vitamin D deficiency Hypothyroidism Dyslipidemia Surgical History History of surgery on arm History of surgery History of colonoscopy History of reconstruction of right breast History of modified radical mastectomy of right breast Family History Father Cancer Leukemia Mother Diabetes mellitus Ovarian cancer Maternal Grandmother Cancer Ovarian cancer Maternal Grandfather No problems noted. Paternal Grandmother No problems noted. Paternal Grandfather No problems noted. Paternal Aunt Breast cancer Sister No problems noted. Son No problems noted. Social History Household Members: Children Household Members Other:: Divorce. Lives w/son in 2 family. 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 Sexual orientation: Straight/Heterosexual Gender identity: Female Cognitive needs: No Hearing needs: No Vision needs: Yes Female Reproductive History Menstrual Total pregnancies: 2 Full term: 1 Number of Living Children: 1 Date of last pap smear: 11/27/22 (neg pap and hpv) Date of Mammogram: 08/18/24 (Birad 1) History of abnormal mammogram: Yes (right breast carcinoma) Date of last Bone Density Screenin09/02/23 Review of Systems Const All systems reviewed & are unremarkable except as noted in HPI and below Reports as per HPI Eyes Reports no additional complaints ENT Reports no additional complaints Card Reports no additional complaints Resp Reports no additional complaints GI Reports as per HPI and Reports no additional complaints Reports as per HPI Musc Reports no additional complaints Skin/Breast Reports as per HPI Neuro Reports no additional complaints Psych Reports no additional complaints Endo Reports no additional complaints Vicente/Lymph Reports no additional complaints Aller/Immun Reports no additional complaints Physical Exam Vital Signs: Last Vital Signs BP 120/76 05/25/25 08:57 BMI result Body Mass Index 30.2 Const General: cooperative, healthy appearing, no acute distress, well developed and alert Orientation/consciousness: patient oriented x3 HEENT Head: Yes normal to inspection Eyes General: appearance normal, both eyes and all related structures Neck Neck: Yes normal visual inspection Thyroid: Thyroid normal Chest Other: Postsurgical scarring right breast Chest palpation & inspection: normal inspection of the chest and other (no puckering, dimpling, peau de orange, retraction, discharge, masses) Breast/axilla inspection: normal inspection of the breasts Breast/axilla palpation: normal palpation of the breasts Resp Effort & Inspection: normal respiratory effort GI Inspection: Yes normal to inspection and Yes scar Palpation (GI): Soft to palpation Rectal Exam - Female: deferred General: Yes bladder normal to palpation External Female Exam: normal external appearance and normal appearance of the urethra Speculum Exam - Vagina: normal appearance of the vagina, normal palpation, normal vaginal discharge and vagina atrophic Speculum Exam - Cervix: normal appearance of the cervix and normal palpation Bimanual exam- vagina & uterus: normal bimanual exam, normal palpation, uterine size normal, bladder normal to palpation, normal palpation and non-tender Bimanual Exam- Adnexa, other: no masses Skin General skin exam: no rashes or lesions noted Rashes: no rashes Neuro General: patient oriented x3 Cognition (Neuro): normal cognition Extrem General: Yes normal to inspection Psych Attitude: cooperative Thought process: Normal thought process present Assessment & Plan Assessment & Plan (1) Encounter for well woman exam with routine gynecological exam: Code(s): Z01.419 - Encounter for gynecological examination (general) (routine) without abnormal findings Category: Medical Plan Discussed: Current recommendations for pap smears per ASCCP guidelines. Breast awareness, periodic self breast exams and yearly mammogram. Maintain a healthy lifestyle, well balanced diet including Calcium 1,200 mg and Vitamin D 600 IU daily, and routine exercise. Contact the office with any postmenopausal bleeding. Patient verbalizes understanding and agrees to the plan of care. She was given opportunity to ask questions and all questions were answered to the best of my ability. 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 This note is constructed using voice recognition software. While every effort has been made to ensure accuracy, entrepreneurship program director errors may have been included. Coding Level of Care Code Est Pt Prev Care 40-64y(49502) Diagnoses Encounter for well woman exam with routine gynecological exam Z01.419
[2025-05-25 08:57] VITALS: BP 120/76; BMI 30.2
--- OUTSIDE RECORDS SUMMARY | 2025-05-25 09:46 | XMS_ITS | Patient Health Record ---
Author Organization [facility] Address [address] [place] [address] Care Team Providers Care Manager Mail Name Role Phone DIA JACINTA Primary Care Provider Sandeep Salgado [phone] Reason For Referral No Information Medications Medication SIG (Take, Route, Frequency, Duration) Notes Start Date End Date Status Levothyroxine Sodium 25 MCG TAKE 1 TABLE T THREE TIMES A DAY NEEDED WITH FOOD Oral; Duration: 30 Active Colyte w Flavor Packs 240 GM as directed Orally as directed; Duration: 1 day(s) 01/03/2015 Active Problems Problem Type SNOMED Code ICD Code Onset Dates Problem Status W/U Status Risk Notes Problem Constipation (81539988) Constipation (564.00) Active confirmed Problem Colon cancer screening (292119236) Colon cancer screening (V76.51) Active confirmed Plan Of Treatment Future Test Test Name Order Date COLONOSCOPY 01/02/2015 Insurance Providers Payer Name Payer Address Payer Phone Subscriber Number Group Number Insured Name Patient Relationship to Insured Coverage Start Date Coverage End Date [facility] [address] [address] [place], [place] [id number] DARI JACOBSEN I Self - patient is the insured Medical (General) History Medical History History ICD Code Denies RI,DM,CVA,Lung disease,renal dise ase Right-sided breast cancer --mastectomy, then chemo and XRT--followed by Dr. Schaefer Hypothyroidism Had a neg ETT at [facility] in 2014 Surgical History Surgery Date(Month/Year) right mastectomy/reconstruction
== END 2025-05-25 09:28 | disposition home or self-care (01) ==
LOC: HO.HWS 08:55
PROVIDERS: PCP Internal Medicine; Visit Provider Advanced Practice Midwife
DX: Z01.419 Encounter for gynecological examination (general) (routine) without abnormal findings (principal)
CPT/HCPCS: 99396; 99459

== ENCOUNTER → 2025-05-25 08:55 | Outpatient (BNVA) | payer OTHER, SELFPAY | PROVIDERS: PCP Internal Medicine; Visit Provider Advanced Practice Midwife | DX: Z01.419 Encounter for gynecological examination (general) (routine) without abnormal findings (principal); Z78.0 Asymptomatic menopausal state | CPT/HCPCS: 99396 ==

== ENCOUNTER 2025-05-29 09:32 | Outpatient (AMB) | payer OTHER, SELFPAY ==
--- NOTE | 2025-05-29 09:46 | AM.OFFVISNUR ---
Intake Visit Reasons: Evenity #2 Allergies No Known Allergies (No Known Allergies*) Allergy (Verified 05/25/25 08:57) Office Meds romosozumab-aqqg 210 mg/2.34 mL(105 mg/1.17 mL x2)subcutaneous syringe Performing Provider: Arielle Nobles MD [place] [facility] [place] Administered by: Christine Medina RN on 05/29/25 09:46 Dose Route Admin Location Dispensed Lot Number Expiration Date [facility] Engineer [employer] 210 mg subcut bilateral upper arms 2.34 mL [id number] 12/08/27 65167-419-90 [facility] Total Dispensed Waste 2.34 mL 0 % Comments: Patient tolerated injections well. Patient denies any adverse reactions with previous injection. Scheduled for next injection in x4 weeks. Assessment & Plan Assessment & Plan Orders: Orders AMB Romosozumab Injection Patient Supplied Today M81.0 - Age-related osteoporosis without current pathological fracture Coding
== END 2025-05-29 09:45 | disposition home or self-care (01) ==
LOC: HO.ENCR 09:33
PROVIDERS: PCP Internal Medicine; Visit Provider Student in an Organized Health Care Education/Training Program
DX: M81.0 Age-related osteoporosis without current pathological fracture (principal)

== ENCOUNTER → 2025-05-29 09:32 | Outpatient (BNVA) | payer OTHER, SELFPAY | PROVIDERS: PCP Internal Medicine; Visit Provider Student in an Organized Health Care Education/Training Program | DX: M81.0 Age-related osteoporosis without current pathological fracture (principal) | CPT/HCPCS: 96372; J3111 ==

== ENCOUNTER 2025-07-03 09:37 | Outpatient (AMB) | payer OTHER, SELFPAY ==
--- NOTE | 2025-07-03 10:06 | AM.OFFVISNUR ---
Intake Visit Reasons: Evenity #3 Allergies No Known Allergies (No Known Allergies*) Allergy (Verified 05/25/25 08:57) Office Meds romosozumab-aqqg 210 mg/2.34 mL(105 mg/1.17 mL x2)subcutaneous syringe Performing Provider: Arielle Nobles MD [place] [facility] [place] Administered by: Edith Hall RN on 07/03/25 10:00 Dose Route Admin Location Dispensed Lot Number Expiration Date [facility] Supervisor Money Room 210 mg subcut bilateral upper arms 2.34 mL [id number] 12/08/27 41394-416-70 [facility] Total Dispensed Waste 2.34 mL 0 % Comments: No adverse reactions reported from previous injection. Pt tolerated injection well. Pt scheduled in 4 weeks for next appt. No further questions at this time. Assessment & Plan Assessment & Plan Orders: Orders AMB Romosozumab Injection Patient Supplied Today M81.0 - Age-related osteoporosis without current pathological fracture Coding
--- OUTSIDE RECORDS SUMMARY | 2025-07-03 11:14 | XMS_ITS | Patient Health Record ---
Author Organization [facility] Address [address] [place] [address] Care Team Providers Care Professor Of Art History Name Role Phone DIAJCAINTA Primary Care Provider Sandeep Salgado [phone] Reason For Referral No Information Medications Medication SIG (Take, Route, Frequency, Duration) Notes Start Date End Date Status Levothyroxine Sodium 25 MCG Tablet TAKE 1 TABLET THREE TIMES A DAY NEEDED WITH FOOD Oral; Duration: 30 Active Colyte w Flavor Packs 240 GM Solution Reconstituted as directed Orally as directed; Duration: 1 day(s) 01/03/2015 Active Social History Social History Additional Details Category Social Info Options Details Miscellaneous: Marital status: 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 30 years Nonsmoker; occasional alcohol Problems Problem Type SNOMED Code ICD Code Onset Dates Problem Status W/U Status Risk Notes Problem Constipation (45309917) Constipation (564.00) Active confirmed Problem Colon cancer screening (054197391) Colon cancer screening (V76.51) Active confirmed Plan Of Treatment Future Test Test Name Order Date COLONOSCOPY 01/02/2015 Insurance Providers Payer Name Payer Address Payer Phone Subscriber Number Group Number Insured Name Patient Relationship to Insured Coverage Start Date Coverage End Date [facility] [employer] [facility] [address] [address] [place], [place] [phone] [id number] DARI JACOBSEN I Self - patient is the insured Medical (General) History Medical History History ICD Code Denies [place],DM,CVA,Lung disease,renal dise ase Right-sided breast cancer 19 99--mastectomy, then chemo and XRT--followed by Dr. Schaefer Hypothyroidism Had a neg ETT [place] [facility] [place] Surgical History Surgery Date(Month/Year) right mastectomy/reconstruction
== END 2025-07-03 10:06 | disposition home or self-care (01) ==
LOC: HO.ENCR 09:38
PROVIDERS: PCP Internal Medicine; Visit Provider Student in an Organized Health Care Education/Training Program
DX: M81.0 Age-related osteoporosis without current pathological fracture (principal)

== ENCOUNTER → 2025-07-03 09:37 | Outpatient (BNVA) | payer OTHER, SELFPAY | PROVIDERS: PCP Internal Medicine; Visit Provider Student in an Organized Health Care Education/Training Program | DX: M81.0 Age-related osteoporosis without current pathological fracture (principal) | CPT/HCPCS: 96372; J3111 ==

== ENCOUNTER 2025-07-31 09:15 | Outpatient (AMB) | payer OTHER, SELFPAY ==
--- NOTE | 2025-07-31 09:49 | AM.OFFVISNUR ---
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 Pt tolerated injection well. Pt scheduled in 4 weeks for next appt. No further questions at this time. Assessment & Plan Assessment & Plan Orders: Orders AMB Romosozumab Injection Patient Supplied Today M81.0 - Age-related osteoporosis without current pathological fracture Coding
--- OUTSIDE RECORDS SUMMARY | 2025-07-31 10:16 | XMS_ITS | Patient Health Record ---
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 [place] years Nonsmoker; occasional alcohol Problems Problem Type SNOMED Code ICD Code Onset Dates Problem Status W/U Status Risk Notes Problem Constipation (30767179) Constipation (564.00) Active confirmed Problem Colon cancer screening (974280090) Colon cancer screening (V76.51) Active confirmed Plan Of Treatment Future Test Test Name Order Date COLONOSCOPY 01/02/2015 Insurance Providers Payer Name Payer Address Payer Phone Subscriber Number Group Number Insured Name Patient Relationship to Insured Coverage Start Date Coverage End Date [facility] [employer] [facility] [address] [address] [place], [place] [phone] [id number] DARI JACOBSEN I Self - patient is the insured Medical (General) History Medical History History ICD Code Denies [place],DM,CVA,Lung disease,renal dise ase Right-sided breast cancer 21 99--mastectomy, then chemo and XRT--followed by Dr. Schaefer Hypothyroidism Had a neg ETT at [facility] [place] Surgical History Surgery Date(Month/Year) right mastectomy/reconstruction
== END 2025-07-31 09:48 | disposition home or self-care (01) ==
LOC: HO.ENCR 09:15
PROVIDERS: PCP Internal Medicine; Visit Provider Student in an Organized Health Care Education/Training Program
DX: M81.0 Age-related osteoporosis without current pathological fracture (principal)

== ENCOUNTER → 2025-07-31 09:15 | Outpatient (BNVA) | payer OTHER, SELFPAY | PROVIDERS: PCP Internal Medicine; Visit Provider Student in an Organized Health Care Education/Training Program | DX: M81.0 Age-related osteoporosis without current pathological fracture (principal) | CPT/HCPCS: 96372; J3111 ==